=== PATIENT | female | born 1960 | race Caucasian/White ===

== ENCOUNTER 2016-11-14 15:42 | Emergency (ER) | payer MEDICARE, MEDICAID ==
[~2016-11-14] VITALS: Ht 172.7 cm; Wt 99.8 kg
[~2016-11-14 15:42] MED LIST: CARV12.53 PO; HYDR25TA4 PO; IBUP-30 PO; NITR-65 PO; NITR100C10 PO; OMEP40CA36 PO; PROM25TA14 PO
--- OUTSIDE RECORDS SUMMARY | 2016-11-14 15:54 | XMS REPORT | Continuity of Care Document ---
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 sleeping because of the pain. The Frederick that I gave her yesterday was not quite strong enough to help her be able to sleep, and she says she just has not slept very much since the injury and was wondering if she could get small prescription of Percocet just to use at bedtime. Pain Assessment Cognitive Status: Independent, decisions consistent/reasonable Intensity: 8 Location: Shoulder Laterality: Left Review of Systems Left shoulder pain, insomnia secondary to pain. Allergies Atarax Compazine Bactrim Ceclor Penicillins Current Medications Anaprox-DS 550 mg oral tablet (naproxen), 550 mg, 2 times a day, 15 Day(s) Coreg 12.5 mg oral tablet (carvedilol), 12.5 mg, 2 times a day doxycycline 20 mg oral tablet (doxycycline), 20 mg, Every 12 hours hydrochlorothiazide 25 mg oral tablet (hydrochlorothiazide), 25 mg, Every 24 hours Klonopin 1 mg oral tablet (clonazepam), take one tab 30-60 minutes before MRI Lac-Hydrin 12% topical cream (ammonium lactate topical), 1 Apply, 2 times a day Frederick 10 mg-325 mg oral tablet (acetaminophen-hydrocodone), 1 Tab, PRN, Every 6 hours Problems and Past Medical History Active Anxiety Asthma DVT (deep venous thrombosis) HIDRADENITIS: Onset on 10/10/2013. Hypertension Incontinence of Urine Osteoarthritis Panic Attacks Family History Cardiovascular Past Medical History Heart Attack Medical History: Father Heart Disease Medical History: Father High Blood Pressure Medical History: Mother Family Status Father: Mother: Paternal Grandfather: Paternal Grandmother: Maternal Grandfather: Maternal Grandmother: Brother 1: Living Brother 2: Living Genitourinary Past Medical Hx Incontinence Medical History: Mother Musculoskeletal Past Medical Hx Back Injury Medical History: Father Oncologic Past Medical History Lung/Bronchus Cancer Medical History: Father Skin Cancer Medical History: Father Psychiatric Past Medical History Anxiety Medical History: Father Panic Attack Medical History: Father Respiratory Past Medical History Asthma Medical History: Sibling, Children Additional Family Status: 2 sons living and one daughter . Family Status Reviewed With Patient: Review complete Procedure History ANKLE SURGERY at 04/1987. Hysterectomy - abdominal * at 04/1995. Exploratory laparotomy * at 04/1998. Cholecystectomy; at 04/1998. bladder tumor benign appy rt knee arthroscopy x2 Social History Current Tobacco Usage: Current Recreational Drug Use: Denies Tobacco Type: Cigarettes Cigarette Use Packs/Day: 1 Physical Examination TEMP BP Pulse RR MAP O2 Sat 37.0 160/90 94 18 113.33 98 Blood Pressure Location: Left arm Oxygen Therapy: Room air Weight Height BMI BSA 113.6 kg (250.45 lbs) 167.5 cm 40.5 kg/m2 2.299 m2 Scale: Standing digital General: Well developed, well-nourished adult female in no acute distress. Alert and oriented. Impression 1. Supraspinatus tendon tear (840.6) Plan Medication changes this visit: New Percocet 7.5/325 oral tablet, 1 Tab, PRN, QPM, Quantity: 5, Refills: 0 Orders this visit: Referral - Request I gave her a prescription of Percocet #5 just to use at bedtime. Explained that she needed to be careful about the amount of Tylenol she was getting, and I did not want her to mix and go back and forth between the Frederick and the Percocet, and not to use the Percocet during the day. We made her an orthopedic appointment for tomorrow. TR: [id number] VIVIAN#: [id number] [Electronically Signed on 02.27.2014 10:06 AM]
Ashleigh Adhikari MD
</br> 02/22/2014 [Electronically Signed on 02.27.2014 10:06 AM] Ashleigh Adhikari MD [facility] Amb Nurs Intake Event Amb Nurs Intake Event 2012 [facility] SMEG-Healthcare Goals 1 SMEG-Healthcare Goals 1 Yes No Yes Yes No No No Yes Yes No 05/19/2013 [facility] Office/Clinic Notes Office/Clinic Notes [facility] [address] [place] [phone] PATIENT: ROSA ISELA OSBORNE MR #: [id number] : 1960 DATE SEEN: 05/19/2013 Chief Complaint Rosa Isela is here today for a cut on the bottom of her right foot. Additional Information: [facility] [address] [place] _ History of Present Illness Mrs. Osborne presents to clinic today due to right plantar foot wound. She initially injured right foot after wood chip was lodge in sole of foot back on in [place]. Patient had wood chip removed at a local ER. She then presented to [facility] urgent care on 04/27 and XR was obtained, which did not show any foriegn body or osteomyelitis. She was given pain medication and started on doxycycline. She was referred to Dr. Braden Myles podiatry, who provided caroleeyle wound debrider and CAM walker and arranged for wound care at [facility]. Patient did not keep appointment at [facility] and presents today to clinic due to on going plantar foot pain. Patient not wearing CAM walker at time of clinic appointment. She denies fever, chills, drainage from wound, increased swelling. Patient states in extreme pain. _ Pain Assessment Cognitive Status: Independent, decisions consistent/reasonable Intensity: 7 Location: Foot Review of Systems denies fever, chills, drainage from wound, increased swelling._ Allergies Atarax Compazine Bactrim Penicillins Current Medications Abilify 2 mg oral tablet (aripiprazole), 6 mg, Daily Coreg 12.5 mg oral tablet (carvedilol), 12.5 mg, 2 times a day hydrochlorothiazide 25 mg oral tablet (hydrochlorothiazide), 25 mg, Every 24 hours Phenergan 25 mg oral tablet (promethazine), 25 mg, Every 8 hours Santyl 250 units/g topical ointment (collagenase topical), 1 Apply, Every 24 hours Problems and Past Medical History Active Anxiety Asthma Hypertension Incontinence of Urine Osteoarthritis Panic Attacks Family History Cardiovascular Past Medical History Heart Attack Medical History: Father Heart Disease Medical History: Father High Blood Pressure Medical History: Mother Family Status Father: Mother: Paternal Grandfather: Paternal Grandmother: Maternal Grandfather: Maternal Grandmother: Brother 1: Living Brother 2: Living Genitourinary Past Medical Hx Incontinence Medical History: Mother Musculoskeletal Past Medical Hx Back Injury Medical History: Father Oncologic Past Medical History Lung/Bronchus Cancer Medical History: Father Skin Cancer Medical History: Father Psychiatric Past Medical History Anxiety Medical History: Father Panic Attack Medical History: Father Respiratory Past Medical History Asthma Medical History: Sibling, Children Additional Family Status: 2 sons living and one daughter . Family Status Reviewed With Patient: Review complete Procedure History ANKLE SURGERY Hysterectomy - abdominal * at 04/1995. Exploratory laparotomy * at 04/1998. Cholecystectomy; at 04/1998. Social History Alcohol Use: Current Alcohol Type: Liquor Alcohol Frequency: Other: occassionally Caffeine Use: Denies Caffeine Type: Coffee, Soda Caffeine Frequency: Daily Caffeine Use: Current Caffeine Type: Tea Caffeine Frequency: Other: occassionally Current Tobacco Usage: Current Recreational Drug Use: Denies Smoking Status: Smokes daily Physical Examination TEMP BP Pulse RR MAP O2 Sat 36.9 160/80 68 16 106.67 98 Blood Pressure Location: Left arm Oxygen Therapy: Room air Weight Height BMI BSA 167.5 cm General: Afebrile, Resp: CTAB, no wheezing Cardiac: RRR, no murmur Musculoskeletal: R foot: R plantar foot ulceration at distal ball of foot measuring approximately 2 cm in length, deep unknown, no drainage, minimal swelling, no erythema. Patient refused for further exam to probe wound to evaluate depth and underlying tissue due to extreme pain. _ Impression/Plan 1. Open Wound of Foot except Toe(s) Alone (892.0)/Foot pain, right (729.5): Provided percocet 7.5/325 mg po Q 4hrs prn pain, 24 tabs. Patient states rescheduled wound care appointment for next week at [facility]. Will schedule follow-up with Dr. Myles in 2 weeks. Provided script for doxycycline 100 mg po BID and Santyl wound debridement cream. 3. Elevated Blood pressure: Patient states compliant with coreg and HCTZ. Probably secondary to pain. Will need to be monitored in subsequent visits. _ _ Medication changes this visit: New Santyl 250 units/g topical ointment, 1 Apply, Q24H, Quantity: 30, Refills: 0 acetaminophen-hydrocodone 325 mg-7.5 mg oral tablet, 1 Tab, PRN, Q4H, Quantity: 24, Refills: 0 doxycycline hyclate 100 mg oral tablet, 100 mg, BID, Quantity: 14, Refills: 0 _ Ricardo Houston MD [Electronically Signed on 05.31.2013 04:02 PM]
Ricardo Houston MD
</br> 05/19/2013 [Electronically Signed on 05.31.2013 04:02 PM] Ricardo Houston MD [facility] Ambulatory Depart Summary Ambulatory Depart Summary [facility] [address] [place] [address], [place] [id number] PERSON INFORMATION Name ROSA ISELA OSBORNE Age 52 Years 1960 Sex Female Language Martiniquais PCP Bonnie Mina DO Marital Status Legally Time Zone Visit Id Visit Reason OPEN WOUND ON BOTTOM OF FOOT Specialty Enc Type [facility] Med Service SPO-Specialist Phys Office Referred by [facility] Discharge Process Discharge Tracking Id Checkout Checkin Acuity Dispo Type Arrival 04/28/2013 9:44 AM Reg Status LOS Address: [address] [place] [id number] PHYS DOC NOTES PROVIDER INFORMATION VITALS INFORMATION Height: 5ft 5.9in Weight: 238.76 lbs (BMI: 38.6) Temp: 98.1 F Heart Rate: 72 Respiratory: 18 O2 Sat: 98 BP: 132/82 LOCATION INFORMATION Arrival Nurse Unit Room Bed 04/28/2013 9:54 AM ORDERS INFORMATION MEDICAL INFORMATION Allergy Info: Penicillins; Bactrim; Compazine; Atarax HOME MEDICATIONS Abilify 2 mg oral tablet 6 mg, Oral, Daily Coreg 12.5 mg oral tablet 12.5 mg, Oral, 2 times a day Doxy-Caps 100 mg oral tablet 1 Cap, Oral, Every 12 hours hydrochlorothiazide 25 mg oral tablet 25 mg, Oral, Every 24 hours Frederick 10 mg-325 mg oral tablet 1 Tab, Oral, Every 6 hours, as needed, for pain oxycodone 10 mg oral tablet 10 mg, Oral, Every 8 hours, Printed Phenergan 25 mg oral tablet 25 mg, Oral, Every 8 hours, Printed Santyl 250 units/g topical ointment 1 Apply, Topical, Every 24 hours, Printed DISCHARGE INFORMATION Discharge Disposition: Discharge Location: PATIENT EDUCATION INFORMATION Instructions: Wound Care; Pain Management Follow up: DIAGNOSIS Open wound of right foot; Foot Pain 04/28/2013 [facility] Office/Clinic Notes Office/Clinic Notes [facility] [place] [id number] [address] [address] PATIENT: ROSA ISELA OSBORNE MR #: [id number] PCP: Ashleigh Adhikari MD REFERRING PHYSICIAN: Ten Jones MD : 1960 DATE SEEN: 05/04/2014 Chief Complaint Rosa Isela is here today following up on her left shoulder pain. She is still having a lot of pain. History of Present Illness Rosa Isela returns today for evaluation of her left shoulder. She is 2 weeks out of the left shoulder arthroscopy and debridement. She is doing okay. She says she is taking about 4-5 pain pills a day. She says the pain is getting better. Pain Assessment Cognitive Status: Independent, decisions consistent/reasonable Intensity: 6 Location: Shoulder Review of Systems Musculoskeletal: Muscle or joint pain Pertinent negative for the following system(s): Constitutional, HEENT, Respiratory, Cardiovascular, GI, , ADVERTISING INTERN, Integumentary, Neurological, Hematologic, Endocrine, Psychiatric Allergies Atarax Compazine Tylenol Bactrim Ceclor Penicillins Current Medications aspirin, 325 mg, Every 24 hours Coreg 12.5 mg oral tablet (carvedilol), 12.5 mg, 2 times a day Flonase (fluticasone nasal), 1 [place] hydrochlorothiazide 25 mg oral tablet (hydrochlorothiazide), 25 mg, Every 24 hours Klonopin 1 mg oral tablet (clonazepam), take one tab night before surgery oxycodone, 10 mg, PRN, Every 4 hours Prilosec (omeprazole), 20 mg, PRN, Every 24 hours ProAir HFA 90 mcg/inh inhalation aerosol with adapter (albuterol), 2 Puff(s), 4 times a day Problems and Past Medical History Active Acid reflux Anxiety Asthma DVT (deep venous thrombosis) DVT, lower extremity, recurrent HIDRADENITIS: Onset on 10/10/2013. Hx MRSA infection Hypertension Incontinence of Urine Osteoarthritis Panic Attacks Family History Cardiovascular Past Medical History Heart Attack Medical History: Father Heart Disease Medical History: Father High Blood Pressure Medical History: Mother Family Status Father: Mother: Paternal Grandfather: Paternal Grandmother: Maternal Grandfather: Maternal Grandmother: Brother 1: Living Brother 2: Living Genitourinary Past Medical Hx Incontinence Medical History: Mother Musculoskeletal Past Medical Hx Back Injury Medical History: Father Oncologic Past Medical History Lung/Bronchus Cancer Medical History: Father Skin Cancer Medical History: Father Psychiatric Past Medical History Anxiety Medical History: Father Panic Attack Medical History: Father Respiratory Past Medical History Asthma Medical History: Sibling, Children Additional Family Status: 2 sons living and one daughter . Family Status Reviewed With Patient: Review complete Procedure History ANKLE SURGERY at 04/1987. Hysterectomy - abdominal * at 04/1995. Exploratory laparotomy * at 04/1998. Cholecystectomy; at 04/1998. bladder tumor benign appy rt knee arthroscopy x2 LEFT SHOULDER ARTHROSCOPY WITH EXTENSIVE DEBRIDEMENT AND BICEPS TENOTOMY. at . Social History Alcohol Use: Current Alcohol Type: Liquor Alcohol Frequency: Other: occasionally Caffeine Use: Current Caffeine Type: Coffee, Soda Caffeine Frequency: Daily Caffeine Use: Current Caffeine Type: Tea Caffeine Frequency: Other: occasionally Current Tobacco Usage: Current Recreational Drug Use: Denies Smoking Status: Smokes daily Physical Examination TEMP BP Pulse RR MAP O2 Sat 130/92 75 22 104.67 97 Blood Pressure Location: Left arm Oxygen Therapy: Room air Weight Height BMI BSA 167.5 cm On physical examination her stitches look fine. There is some moderate edema. She is neurovascularly intact. Range of motion is somewhat limited secondary to pain. Impression 1. Shoulder pain (719.41) Plan Medication changes this visit: New oxycodone 10 mg oral tablet, 10 mg, PRN, Q4H, Quantity: 60, Refills: 0 Stopped oxycodone, 10 mg, PRN, Q4H, Refills: 0 Orders this visit: Physical Therapy -Request Patient needs to get involved in some physical therapy. We will facilitate this for her. I refilled her pain medications. She will followup with me in 4 weeks for repeat evaluation. cc: Ashleigh Adhikari MD TR: [id number] VIVIAN#: [id number] [Electronically Signed on 05.11.2014 10:40 AM]
Ten Jones MD
</br> 05/04/2014 [Electronically Signed on 05.11.2014 10:40 AM] Ten Jones MD [facility] Surgery Documentation Surgery Documentation DATE OF OPERATION: 04/20/14 PREOPERATIVE DIAGNOSIS: 1. Left shoulder pain. 2. Labral tear. POSTOPERATIVE DIAGNOSIS: 1. Left shoulder pain. 2. Labral tear. OPERATIVE PROCEDURE: Left shoulder arthroscopy with extensive debridement including biceps tenotomy. SURGEON: Ten Jones MD ESTIMATED BLOOD LOSS: 5cc DESCRIPTION OF OPERATIVE PROCEDURE: Risks and benefits of the surgery were discussed with the patient. Informed consent was obtained. The correct extremity was confirmed and marked prior to going to the operating room. The patient was taken to the operating room and placed supine on the operating room table. General anesthesia was administered. Preop antibiotics were given. All bony prominence and peripheral nerves were well-padded. She was transitioned to the beach chair position. The head was secured on the head start teacher. The left lower extremity was then prepped and draped in a normal sterile fashion. A timeout was performed prior to incision. The left shoulder was injected with 60 mL of Normal Saline. A stab incision was made in the posteriorly. A 30 degree arthroscope was inserted in the glenohumeral joint and a diagnostic arthroscopy was initiated. The anterior anatomy was identified and a working portal was created using outside in technique. A cannula was placed. The biceps tendon was probed. The labrum was evaluated. There is a type 2 labral tear with instability of the biceps anchor. Decision for tenotomy was reached. The labrum was debrided. The biceps was tenotomized and the stump was smoothed out with a shaver back to the edge of the labrum. We examined the rotator cuff. The rotator cuff was pristine. No tears were identified. The patient had no cartilaginous issues, no loose bodies. The posterior labrum looked normal. We then went up into subacromial space. The scope was redirected into this area. The patient had normal appearing bursa. This was lightly debrided. No former acromioplasty was performed as there was no irritation or inflammation on the bursal side of the rotator cuff. No bursal side of the rotator cuff tears were seen. At this point, arthroscopic instruments were removed. The shoulder was drained of fluid. The portals were closed with 4-0p Nylon. The patient was then awakened and taken to the recovery in stable condition. Sponge and needle counts were correct times two. There were no complications. PLAN: The patient will placed on Lovenox. She is to take her first dose tonight. She is to wear thigh-hi VIVIAN hose and continue her Lovenox for a total of seven days. She is to wear a sling for comfort. DICTATED BY: Ten Jones cc: TR: liana DR: DE: JOB#: [id number] [Electronically Signed on 05.13.2014 02:29 PM]
Ten Jones MD
</br> 04/20/2014 [Electronically Signed on 05.13.2014 02:29 PM] Ten Jones MD [facility] PreOp Record [facility] PreOp Record [facility] Preop Nursing Record Summary Primary Physician: Ten Jones MD Finalized Date/Time: 04/20/14 09:43:13 Pt. Name: ROSA ISELA OSBORNE /Sex: 1960 Female Med Rec #: [id number] Physician: Financial #: [id number] Pt. Type: S Room/Bed: Formerly named [facility] Admit/Disch: 04/20/14 07:59:00 - Institution: [facility] Preop Case Times Entry 1 Patient in preop 04/20/14 08:10:00 Initial Assessment 04/20/14 08:10:00 by Nurse Anesthesia 04/20/14 08:47:00 Patient Ready for OR 04/20/14 09:34:00 Evaluation Requested Patient out of Preop 04/20/14 09:34:00 Last Modified By: Kim Cleary RN 04/20/14 09:34:59 Finalized By: Kim Cleary RN Document Signatures Signed By: Kim Cleary RN 04/20/14 09:43 04/20/2014 [facility] Ambulatory Depart Summary Ambulatory Depart Summary [facility] [address] [address] [phone] PERSON INFORMATION Name ROSA ISELA OSBORNE Age 53 Years 1960 12:00 AM Sex Female Language Martiniquais PCP Ashleigh Adhikari MD Marital Status Legally Time Zone [facility] [id number] Visit Id Visit Reason SHOULDER PAIN/MEDICATION Specialty Enc Type [facility] Med Service PHYSOFF-Physician Office Referred by [facility] Discharge Process Discharge Tracking Id Checkout Checkin Acuity Dispo Type Arrival 03/19/2014 9:32 AM Reg Status LOS Address: [address] [place] [id number] PHYS DOC NOTES PROVIDER INFORMATION VITALS INFORMATION Height: 5ft 5.9in Weight: 243.39 lbs (BMI: 39.3) Temp: 98.1 F Heart Rate: 87 Respiratory: 18 O2 Sat: 97 BP: 148/94 LOCATION INFORMATION Arrival Nurse Unit Room Bed 03/19/2014 9:38 AM ORDERS INFORMATION MEDICAL INFORMATION Allergy Info: Penicillins; Ceclor; Bactrim; Compazine; Atarax HOME MEDICATIONS Coreg 12.5 mg oral tablet 12.5 mg, Oral, 2 times a day, 6 Refills hydrochlorothiazide 25 mg oral tablet 25 mg, Oral, Every 24 hours, 6 Refills Klonopin 1 mg oral tablet See Instructions, take one tab night before surgery Frederick 10 mg-325 mg oral tablet 1 Tab, Oral, Every 6 hours, as needed, for pain, Printed ProAir HFA 90 mcg/inh inhalation aerosol with adapter 2 Puff(s), Inhalation, 4 times a day, 3 Refills, [place]: [place] DISCHARGE INFORMATION Discharge Disposition: Discharge Location: PATIENT EDUCATION INFORMATION Instructions: ASTHMA, Acute (Adult) Follow up: DIAGNOSIS Asthma 03/19/2014 [facility] Office/Clinic Notes Office/Clinic Notes [facility] [address] [place] [address] PATIENT: ROSA ISELA OSBORNE MR #: [id number] PCP: Ashleigh Adhikari MD REFERRING PHYSICIAN: Ashleigh Adhikari MD : 1960 DATE SEEN: 03/16/2014 Chief Complaint Rosa Isela is here today for pre op evaluation. History of Present Illness Ms. Osborne returns today for evaluation of her shoulder. We had planned shoulder arthroscopy and potential rotator cuff repair for her but it was canceled because of the need for hematology workup. Apparently the patient has had multiple DVT (deep vein thrombosis) and is currently not on any sort of anticoagulant therapy. She saw a electric truck operator for this and the electric truck operator made some recommendations. She is here today to discuss these with me. Patient states to me in no uncertain terms that she is ready to compliant with her anticoagulation therapy postoperatively. The electric truck operator outlined a very specific outline of 40mg of subcutaneous Lovanox for 2 weeks postop. Pain Assessment Cognitive Status: Independent, decisions consistent/reasonable Intensity: 6 Location: Other: left shoulder, back Review of Systems Musculoskeletal: Muscle or joint pain Pertinent negative for the following system(s): Constitutional, HEENT, Respiratory, Cardiovascular, GI, , ADVERTISING INTERN, Integumentary, Neurological, Hematologic, Endocrine, Psychiatric Allergies Atarax Compazine Bactrim Ceclor Penicillins Current Medications Coreg 12.5 mg oral tablet (carvedilol), 12.5 mg, 2 times a day hydrochlorothiazide 25 mg oral tablet (hydrochlorothiazide), 25 mg, Every 24 hours Klonopin 1 mg oral tablet (clonazepam), take one tab night before surgery Frederick 10 mg-325 mg oral tablet (acetaminophen-hydrocodone), 1 Tab, PRN, Every 6 hours Problems and Past Medical History Active Anxiety Asthma DVT (deep venous thrombosis) DVT, lower extremity, recurrent HIDRADENITIS: Onset on 10/10/2013. Hypertension Incontinence of Urine Osteoarthritis Panic Attacks Family History Cardiovascular Past Medical History Heart Attack Medical History: Father Heart Disease Medical History: Father High Blood Pressure Medical History: Mother Family Status Father: Mother: Paternal Grandfather: Paternal Grandmother: Maternal Grandfather: Maternal Grandmother: Brother 1: Living Brother 2: Living Genitourinary Past Medical Hx Incontinence Medical History: Mother Musculoskeletal Past Medical Hx Back Injury Medical History: Father Oncologic Past Medical History Lung/Bronchus Cancer Medical History: Father Skin Cancer Medical History: Father Psychiatric Past Medical History Anxiety Medical History: Father Panic Attack Medical History: Father Respiratory Past Medical History Asthma Medical History: Sibling, Children Additional Family Status: 2 sons living and one daughter . Family Status Reviewed With Patient: Review complete Procedure History ANKLE SURGERY at 04/1987. Hysterectomy - abdominal * at 04/1995. Exploratory laparotomy * at 04/1998. Cholecystectomy; at 04/1998. bladder tumor benign appy rt knee arthroscopy x2 Social History Alcohol Use: Current Alcohol Type: Liquor Alcohol Frequency: Other: occasionally Caffeine Use: Current Caffeine Type: Coffee, Soda Caffeine Frequency: Daily Caffeine Use: Current Caffeine Type: Tea Caffeine Frequency: Other: occasionally Current Tobacco Usage: Current Recreational Drug Use: Denies Smoking Status: Smokes daily Physical Examination TEMP BP Pulse RR MAP O2 Sat 37.0 102/68 85 20 79.33 94 Blood Pressure Location: Left arm Oxygen Therapy: Room air Weight Height BMI BSA 167.5 cm The patient's physical exam is really unchanged. Impression 1. Rotator cuff injury (959.2) Plan We will plan on doing left shoulder arthroscopy with possible rotator cuff repair. Patient has expressed commitment to comply with DVT prophylaxis measures. I counseled her on the importance of this and she expressed understanding. We will set up the surgery at a time that it is convenient. cc: Ashleigh Adhikari MD TR: [id number] VIVIAN#: [id number] [Electronically Signed on 03.29.2014 10:44 AM]
Ten Jones MD
</br> 03/16/2014 [Electronically Signed on 03.29.2014 10:44 AM] Ten Jones MD [facility] Office/Clinic Notes Office/Clinic Notes No prior auth is required for outpatient surgical procedures with Medicaid that are covered by Medicare and deemed medically necessary by the physician notes and the insurance. KW. Reference number [id number]. KW. 03/19/2014 [facility] Ambulatory Depart Summary Ambulatory Depart Summary [facility] [address] [place] [address] [place] [address] PERSON INFORMATION Name ROSA ISELA OSBORNE Age 53 Years 1960 Sex Female Language Martiniquais PCP Bonnie Mina DO Marital Status Legally Time Zone Visit Id Visit Reason 1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
[2016-11-14] MEDS ORDERED: CYCLOBENZAPRINE 10 MG (FLEXERIL) TAB PO STA (16:54)
[2016-11-14 17:10] LABS: BILIRUBIN,URINE NEGATIVE (NEGATIVE); KETONES,URINE NEGATIVE (NEGATIVE); LEUKOCYTE ESTERASE ,URINE NEGATIVE (NEGATIVE); NITRITE,URINE NEGATIVE (NEGATIVE); PH,URINE 6 (5-9); PROTEIN,URINE NEGATIVE (NEGATIVE); UROBILINOGEN,URINE NORMAL (NORMAL)
[2016-11-14] MEDS ORDERED: oxyCODONE/APAP 5/325MG (PERCOCET 5) TABLET PO STA (17:11)
--- NOTE | 2016-11-14 17:59 | Diagnostic Imaging Report ---
INDICATION: Low back pain, fall. COMPARISON: None. EXAMINATION: Three3 views of the lumbar spine were obtained. FINDINGS: Normal alignment. There is no subluxation or fracture. No significant degeneration. IMPRESSION: Negative lumbar spine. Dictated by: Dictated on workstation # [id number]
[2016-11-14] MEDS ORDERED: CYCL10TA9 PO (18:07)
--- NOTE | 2016-11-14 18:07 | ED Lower Extremity ---
General Chief Complaint: Trauma-Non Activation Stated Complaint: FALL/BACK PAIN/BILAT LEG PAIN Nursing Triage Note: Pt claims she fell forward while going up a flight of stairs. c/o low back pain. Hx of chronic shoulder problems (torn labrium) bilateral. Pt has appointment to see Aurelio next week. Nursing Sepsis Screen: No Definite Risk History of Present Illness Time seen by provider: 16:40 Initial Comments Patient reports yesterday she was going up 1 step and tripped. She started to fall forward but caught herself. She denies any head injury or loss of consciousness. He has long-standing history of degenerative disc disease in the neck And chronic use of opioids for bilateral shoulder pain. He is seeing Dr. Carey next week for her shoulders. Her K Tracs, she has filled hydrocodone/ apap 5/325 mg No. 30 on 11/09/16, 10/31/16, and 10/21/16. Location Injury Occurred: home Onset: yesterday Pain/Injury Location: bilateral leg Method of Injury: fell Modifying Factors: Improves With Rest Allergies and Home Medications Allergies Coded Allergies: Penicillins (Verified Allergy, Unknown, 06/20/16) cefaclor (Verified Allergy, Unknown, 06/20/16) hydroxyzine (Verified Allergy, Unknown, 06/20/16) prochlorperazine (Verified Allergy, Unknown, 06/20/16) sulfamethoxazole (Verified Allergy, Unknown, 06/20/16) trimethoprim (Verified Allergy, Unknown, 06/20/16) Home Medications Carvedilol 12.5 Mg Tablet 12.5 MG PO BID (Reported) Cyclobenzaprine HCl 10 Mg Tablet #12 10 MG PO Q8H Prescribed by: MAXIMILIANO BARKER on 11/14/16 1807 Hydrochlorothiazide 25 Mg Tablet 25 MG PO DAILY (Reported) Ibuprofen 200 Mg Tablet 800 MG PO DAILY (Reported) Omeprazole 40 Mg Capsule.dr 40 MG PO DAILY (Reported) Constitutional: no symptoms reported see HPI EENTM: no symptoms reported see HPI Respiratory: no symptoms reported see HPI Cardiovascular: no symptoms reported see HPI Gastrointestinal: no symptoms reported see HPI Genitourinary: see HPINo discharge, No dysuria, frequencyNo hematuria, No nocturia, No pain Musculoskeletal: see HPI back pain joint pain (bilateral shoulders) Skin: no symptoms reported see HPI Psychiatric/Neurological: No Symptoms Reported See HPI All Other Systems Reviewed Negative Unless Noted: Yes Past Zlgfiop-Ceqkpa-Mawagg Hx Patient Social History Alcohol Use: Denies Use Recreational Drug Use: No Type Used: Cigarettes Recent Foreign Travel: No Contact w/Someone Who Travel: No Recent Infectious Disease Expo: No Recent Hopitalizations: No Immunizations Up To Date Tetanus Booster (TDap): Less than 5yrs Date of Pneumonia Vaccine: Oct 04, 2010 Seasonal Allergies Seasonal Allergies: Yes Surgeries HX Surgeries: Yes Surgeries: Hysterectomy, Orthopedic Respiratory Hx Respiratory Disorders: No Cardiovascular Hx Cardiac Disorders: Yes Cardiac Disorders: Deep Vein Thrombosis, Hypertension Neurological Hx Neurological Disorders: No 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 System 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 Disorders: No Genitourinary Hx Genitourinary Disorders: No Gastrointestinal Hx Gastrointestinal Disorders: No Gastrointestinal Disorders: Gastroesophageal Reflux, Liver Disease/Jaundice Musculoskeletal Hx Musculoskeletal Disorders: No Endocrine Hx Endocrine Disorders: No HEENT HX ENT Disorders: No Cancer Hx Cancer: No Cancer: Bladder Psychosocial Hx Psychiatric Problems: No Behavioral Health Disorders: Anxiety, Depression Integumentary HX Skin/Integumentary Disorder: No Blood Transfusions Hx Blood Disorders: No Adverse Reaction to a Blood Tr: No Reviewed Nursing Assessment Reviewed/Agree w Nursing PMH: Yes Family Medical History Significant Family History: No Pertinent Family Hx Physical Exam Vital Signs Vital Sign - Last 12Hours 11/14/16 16:00 Temp 97.5 Pulse 70 Resp 18 B/P 147/88 Pulse Ox 98 Capillary Refill : Less Than 3 Seconds General Appearance: WD/WN no apparent distress HEENT: PERRL/EOMI normal ENT inspection Neck: non-tender full range of motion supple normal inspection Cardiovascular: normal peripheral pulses regular rate, rhythm no edema no murmur Respiratory: chest non-tender lungs clear Gastrointestinal: normal bowel sounds non tender soft Back: normal inspection no CVA tenderness Hips: bilateral hip non-tender, bilateral hip normal inspection, bilateral hip normal range of motion Legs: bilateral leg non-tender, bilateral leg normal inspection, bilateral leg normal range of motion Neurologic/Tendon: normal sensation normal motor functions normal tendon functions responds to pain Neurologic/Psychiatric: no motor/sensory deficits alert normal mood/affect oriented x 3 Skin: normal color warm/dry Comments Pain lower lumbar spine, with right paraspinal muscle tenderness. Limitation of motion lumbar spine secondary to pain. Neurovascular status intact bilateral lower extremities. Pain reproduced in the low back with L4 muscle testing. Power V/V L4-S1. Progress/Results/Core Measures Results/Orders Lab Results Laboratory Tests Test 11/14/16 17:00 Range/Units Urine Bacteria NEGATIVE /HPF Urine Bilirubin NEGATIVE NEGATIVE Urine Casts NONE /LPF Urine Clarity SLIGHTLY CLOUDY Urine Color YELLOW Urine Crystals NONE /LPF Urine Culture Indicated NO Urine Glucose (UA) NEGATIVE NEGATIVE Urine Ketones NEGATIVE NEGATIVE Urine Leukocyte Esterase NEGATIVE NEGATIVE Urine Mucus NEGATIVE /LPF Urine Nitrite NEGATIVE NEGATIVE Urine Protein NEGATIVE NEGATIVE Urine RBC NONE /HPF Urine RBC (Auto) NEGATIVE NEGATIVE Urine Specific [place] 1.010 L 1.016-1.022 Urine Squamous Epithelial Cells 2-5 /HPF Urine Urobilinogen NORMAL NORMAL MG/DL Urine WBC NONE /HPF Urine pH 6 5-9 My Orders Orders-MAXIMILIANO BARKER Lumbar Spine - 2-3 Views (11/14/16 16:54) Cyclobenzaprine Tablet (Flexeril Tablet) (11/14/16 16:54) Tramadol Tablet (Ultram Tablet) (11/14/16 16:54) Ua Culture If Indicated (11/14/16 16:54) Oxycodone/Apap 5/325mg Tablet (Percocet (11/14/16 17:11) Vital Signs/I&O Vital Sign - Last 12Hours 11/14/16 11/14/16 11/14/16 11/14/16 16:00 16:23 16:50 17:37 Temp 97.5 97.5 97.5 97.5 Pulse 70 70 70 Resp 18 18 18 B/P 147/88 147/88 147/88 Pulse Ox 98 98 98 11/14/16 18:15 Temp 97.8 Pulse 72 Resp 16 Pulse Ox 98 Blood Pressure Mean: 107 Progress Note : Time: 16:50 Progress Note Obtain x-rays of the lumbar spine and a UA. Oxycodone for pain and Flexeril 10 mg by mouth for muscle spasms. 1730 reviewed x-ray with patient, UA negative. 3 show no acute findings. She reports slight improvement in her symptoms since taking the medications. Verbalizes understanding for discharge instructions. Diagnostic Imaging Diagonstic Imaging: Xray Plain Films/CT/US/NM/MRI: other (lumbar spine) Comments NAME: ROSA ISELA CHING MED REC#: [id number] PT STATUS: REG ER : 1960 PHYSICIAN: MAXIMILIANO BARKER ADMIT DATE: 11/14/16/ER Signed Date of Exam: 11/14/16 LUMBAR SPINE - 2-3 VIEWS INDICATION: Low back pain, fall. COMPARISON: None. EXAMINATION: Three3 views of the lumbar spine were obtained. FINDINGS: Normal alignment. There is no subluxation or fracture. No significant degeneration. IMPRESSION: Negative lumbar spine. Dictated by: Dictated on workstation # [id number] Dict: 11/14/161756 Trans: 11/14/161801 [facility] [id number] Interpreted by: JALEEL ALATORRE Electronically signed by:JALEEL ALATORRE 11/14/163 Reviewed: Reviewed by Me, Reviewed/Discussed Departure Impression Impression: Primary Impression: Lumbar spine strain Qualified Code: S39.012A - Strain of muscle, fascia and tendon of lower back, initial encounter Disposition: 01 HOME, SELF-CARE Condition: Stable Departure-Patient Inst. Decision time for Depature: 17:50 Referrals: NO,LOCAL PHYSICIAN (PCP/Family) Primary Care Physician Patient Instructions: Low Back Pain (DC) Add. Discharge Instructions: All discharge instructions reviewed with patient and/or family. Voiced understanding. Gentle range of motion for lumbar spine. Keep appointment with orthopedics for shoulders next week. Return to emergency department for increased pain or change in symptoms. Scripts Cyclobenzaprine HCl 10 Mg [id number] Mg PO Q8H Spasms #12 TAB Ref 0 Prov:MAXIMILIANO BARKER 11/14/16 MAXIMILIANO BARKER Nov 14, 2016 18:07
[2016-11-14 18:15] VITALS: BP 136/70
== END 2016-11-14 18:15 | disposition home or self-care (01) ==
LOC: EDUNIT# 15:42 → ER 15:44
DX: S39.012A Strain of muscle, fascia and tendon of lower back, initial encounter (principal); M50.30 Other cervical disc degeneration, unspecified cervical region; I10 Essential (primary) hypertension; Z79.899 Other long term (current) drug therapy; Z79.891 Long term (current) use of opiate analgesic; W10.9XXA Fall (on) (from) unspecified stairs and steps, initial encounter; Y99.8 Other external cause status
CPT/HCPCS: 72100; 81000; 99282

== ENCOUNTER → 2016-12-29 | Outpatient (CLI) | payer MEDICARE, MEDICAID ==
[~2016-12-29] MED LIST changes: +CYCL10TA9 PO; +OXYC-471 PO
--- NOTE | 2016-12-29 17:40 | Diagnostic Imaging Report ---
PROCEDURE: MRI left upper extremity without contrast. TECHNIQUE: Multiplanar, multisequence non contrast-enhanced MRI of the left upper extremity was accomplished. INDICATION: Shoulder pain. FINDINGS: There are no previous MRI examinations available for comparison. The left shoulder exam performed on 06/20/2016 failed to show any sign of an acute bony abnormality. On the T2 coronal fat-saturated series of this exam, there is irregularity and thinning of the bursal aspect of the mid portion of the rotator cuff. I do suspect that there is at least a partial tear of the rotator cuff in this region. The supraspinatus muscle itself is not retracted or bunched. There is also some fluid in the subacromial and subdeltoid bursa, and the presence of the fluid does suggest that there is an element of tendinitis present. There is also hypertrophy of the acromioclavicular joint, and this does result in narrowing of the outlet for the supraspinatus muscle. The biceps tendon and the subscapularis tendon are intact. The biceps anchor does have somewhat of an unusual appearance, and I am considering that there may be a SLAP 3 tear present. The labrum is also thinned and most likely torn on a degenerative basis. There is a trace amount of fluid within the shoulder joint. There is no abnormal signal arising from the osseous structures to suggest bone edema or a fracture. There is cystic degenerative disease of the greater tuberosity. IMPRESSION: 1. There is a partial bursal-sided tear of the mid portion of the rotator cuff. The supraspinatus muscle is not retracted or bunched. The fluid in the subacromial and subdeltoid bursa does suggest that there is also an element of tendinitis present. 2. There is narrowing of the outlet for the supraspinatus muscle due to acromioclavicular hypertrophy. 3. The appearance of the biceps anchor is suspicious for a SLAP 3 tear. The labrum is also torn on a degenerative basis. 4. There is no acute bony abnormality identified, but there is degenerative disease of the greater tuberosity. Dictated by: Dictated on workstation # [id number]
== END ==
LOC: RAD 15:24
PROVIDERS: ATTEND Orthopaedic Surgery
DX: M75.112 Incomplete rotator cuff tear or rupture of left shoulder, not specified as traumatic (principal); M19.012 Primary osteoarthritis, left shoulder
CPT/HCPCS: 73221

== ENCOUNTER 2017-01-09 13:07 | Emergency (ER) | payer MEDICARE, MEDICAID ==
[~2017-01-09] VITALS: Ht 167.6 cm; Wt 112.0 kg
[~2017-01-09 13:07] MED LIST changes: -OXYC-471 PO
[2017-01-09] MEDS ORDERED: OXYC-471 PO (13:29)
[2017-01-09] MEDS ORDERED: morphine INJ 10 MG/ML 1ML (SYR OR VIAL) IM STA (13:35)
--- NOTE | 2017-01-09 13:59 | ED General ---
General Chief Complaint: General Problems/Pain Stated Complaint: SOB Nursing Triage Note: TO ED PER EMS HAS SHOULDER SURG YESTERDAY IN [place] AT [facility] BY DR JOSEPH. RECEIVED OCYCODONE 5MG NOT HELPING. CMS OF L ARM GOOD. NO REDNESS OR SWELLING AROUND SURG SITE. Nursing Sepsis Screen: No Definite Risk Source of Information: Patient, Other (significant other) Exam Limitations: No Limitations History of Present Illness Time Seen by Provider: 13:15 Initial Comments 56-year-old female patient presents to the emergency department complaints of left shoulder pain not relieved with oxycodone 5 mg. Patient reports undergoing left shoulder surgery yesterday in [place] at the surgery center by Dr. Carey. States she was doing good until she tried to go without the medication for several hours. Now reports increasing pain. Patient states she is also supposed to be prescribed Phenergan, but was prescribed Zofran. States Zofran is not covered by her insurance. Patient is not wearing an arm brace or sling. Patient states she is supposed to be using her arm brace with the foam block, but states she did not feel like using it today. States she has been cleaning the toilet and tub of as well as unpacking today. States she's been using both upper extremities to do these tasks. Denies known injury to the left shoulder since having surgery yesterday. Timing/Duration: 1-3 Hours Modifying Factors: worse with Medication (no improvement with oxycodone 5 mg) Allergies and Home Medications Allergies Coded Allergies: Penicillins (Verified Allergy, Unknown, 06/20/16) cefaclor (Verified Allergy, Unknown, 06/20/16) hydroxyzine (Verified Allergy, Unknown, 06/20/16) prochlorperazine (Verified Allergy, Unknown, 06/20/16) sulfamethoxazole (Verified Allergy, Unknown, 06/20/16) trimethoprim (Verified Allergy, Unknown, 06/20/16) Home Medications Carvedilol 12.5 Mg Tablet, 12.5 MG PO BID, (Reported) Cyclobenzaprine HCl 10 Mg Tablet, 10 MG PO Q8H, #12 Ref 0 Prescribed by: MAXIMILIANO BARKER on 11/14/16 7126 Hydrochlorothiazide 25 Mg Tablet, 25 MG PO DAILY, (Reported) Ibuprofen 200 Mg Tablet, 800 MG PO DAILY, (Reported) Omeprazole 40 Mg Capsule.dr, 40 MG PO DAILY, (Reported) Oxycodone HCl/Acetaminophen 1 Each Tablet, 1 EACH PO, (Reported) Promethazine HCl 25 Mg Tablet, 25 MG PO Q6H PRN for NAUSEA/VOMITING, #6 Ref 0 Prescribed by: TINO MURPHY on 01/09/17 1410 Constitutional: No chills, No dizziness, No fever, No malaise, No weakness Respiratory: No cough, No short of breath, No wheezing Cardiovascular: No chest pain, No palpitations, No syncope Gastrointestinal: no symptoms reported Musculoskeletal: see HPI, No back pain, joint pain (left shoulder), joint swelling (left shoulder), No neck pain Skin: change in color (ecchymosis since having surgery to the left shoulder) Psychiatric/Neurological: Denies Headache, Denies Numbness, Denies Paresthesia , Denies Tingling, Denies Weakness All Other Systems Reviewed Negative Unless Noted: Yes (Negative excepted noted.) Past Nkqiwoc-Oqovyf-Omokpi Hx Patient Social History Alcohol Use: Occasionally Uses Recreational Drug Use: No Smoking Status: Current Everyday Smoker Type Used: Cigarettes Recent Foreign Travel: No Contact w/Someone Who Travel: No Recent Infectious Disease Expo: No Recent Hopitalizations: No Immunizations Up To Date Tetanus Booster (TDap): Less than 5yrs Date of Pneumonia Vaccine: Oct 04, 2010 Seasonal Allergies Seasonal Allergies: Yes Surgeries HX Surgeries: Yes Surgeries: Hysterectomy, Orthopedic Respiratory Hx Respiratory Disorders: Yes Respiratory Disorders: Asthma Cardiovascular Hx Cardiac Disorders: Yes Cardiac Disorders: Deep Vein Thrombosis, Hypertension Neurological Hx Neurological Disorders: No 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 System 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 Disorders: No Genitourinary Hx Genitourinary Disorders: No Gastrointestinal Hx Gastrointestinal Disorders: No Gastrointestinal Disorders: Gastroesophageal Reflux, Liver Disease/Jaundice Musculoskeletal Hx Musculoskeletal Disorders: No Endocrine Hx Endocrine Disorders: No HEENT HX ENT Disorders: No Cancer Hx Cancer: No Cancer: Bladder Psychosocial Hx Psychiatric Problems: No Behavioral Health Disorders: Anxiety, Depression Integumentary HX Skin/Integumentary Disorder: No Blood Transfusions Hx Blood Disorders: No Adverse Reaction to a Blood Tr: No Reviewed Nursing Assessment Reviewed/Agree w Nursing PMH: Yes Family Medical History Significant Family History: No Pertinent Family Hx Physical Exam Vital Signs Vital Sign - Last 12Hours 01/09/17 13:08 Temp 98.2 Pulse 69 Resp 18 B/P (MAP) 138/84 Pulse Ox 98 O2 Delivery Room Air Capillary Refill : Less Than 3 Seconds General Appearance: No Apparent Distress, WD/WN HEENT: PERRL/EOMI, Pharynx Normal Neck: Normal Inspection, Non Tender, Supple Respiratory: Lungs Clear, Normal Breath Sounds, No Respiratory Distress Cardiovascular: Regular Rate, Rhythm, No Murmur, Normal Peripheral Pulses Back: Normal Inspection Extremity: Normal Capillary Refill, Other (swelling and generalized tenderness of the left shoulder. Scattered areas of ecchymosis to the left shoulder. Incisions intact without evidence of erythema, warmth, or drainage.) Neurologic/Psychiatric: Alert, Oriented x3, No Motor/Sensory Deficits, Normal Mood/Affect Skin: Normal Color, Warm/Dry, Other (Scattered areas of ecchymosis to the left shoulder. Incisions intact without evidence of erythema, warmth, or drainage.) Progress/Results/Core Measures Results/Orders My Orders Orders - TINO MURPHY Morphine Injection (Morphine Injection (01/09/17 13:35) Diazepam Tablet (Valium Tablet) (01/09/17 14:30) Vital Signs/I&O Blood Pressure Mean: 102 Departure Communication Progress Notes Patient is allergic to Compazine, but states she IS able to take Phenergan. Patient was given morphine area then reported to nursing staff that she felt like she is still having muscle spasm. Will give patient one dose of IM prior to discharge. Discharge to home with follow-up as an outpatient with Dr. Carey. Patient instructed to contact his office Wednesday for appointment time. Impression Impression: Primary Impression: Postoperative pain of extremity Additional Impression: Status post rotator cuff repair Disposition: HOME, SELF-CARE Condition: Improved Departure-Patient Inst. Decision time for Depature: 14:04 Referrals: LIA MONTES DO (PCP/Family) Primary Care Physician LANE CAREY DO Patient Instructions: DR. CAREY SHOULDER ARTH D/C Add. Discharge Instructions: All discharge instructions reviewed with patient and/or family. Voiced understanding. Medications as instructed. Increase oxycodone 5/325 mg to 1-2 by mouth every 4-6 hours for pain. Ice packs for 20 minute intervals as needed for pain. Continue activities as instructed by Dr. Carey. Follow-up with Dr. Carey this week for recheck, call Wednesday for appointment time. Return to the emergency department for worsened pain, redness, drainage, fever, or any other concerns. Scripts Promethazine HCl (Promethazine Tablet) 25 Mg Tablet 25 MG PO Q6H Y for NAUSEA/VOMITING, #6 TAB 0 Refills Prov: TINO MURPHY 01/09/17 TINO MURPHY Jan 09, 2017 13:59
[2017-01-09] MEDS ORDERED: PROM25TA14 PO (14:10)
[2017-01-09] MEDS ORDERED: DIAZEPAM 5 MG (VALIUM) TABLET PO ONE (14:30)
[2017-01-09 15:06] VITALS: BP 138/84
--- OUTSIDE RECORDS SUMMARY | 2017-02-14 04:51 | XMS REPORT | Continuity of Care Document ---
Author Author [facility] Organization [facility] Address Unknown Phone Unavailable Care Team Providers Care Grocery Stocker Name Role Phone No Pcp, Na PCP Unavailable Source Comments Some departments are not documenting in the electronic medical record. If you do not see the information that you expected, contact Release of Information in the Health Information Management department at [phone] for further assistance in locating additional records.[facility] Active Allergies and Adverse Reactions Allergen Noted Date Severity Reactions Comments Atarax 05/30/2011 DYSTONIA Bactrim 05/30/2011 HIVES Ceclor 05/30/2011 HIVES Compazine 05/30/2011 DYSTONIA Fentanyl 05/30/2011 HIVES Keflex 05/30/2011 HIVES Nsaids (Non-Steroidal 05/30/2011 HIVES "Hives and Bleeding" Anti-Inflammatory Drug) Oxycontin 05/30/2011 HIVES "Able to take Oxycodone without problems" Pcn 05/30/2011 HIVES Titanium 05/30/2011 SEE COMMENTS "Titanium-surgical steel=osteomyelitis" Tylenol 05/30/2011 SEE COMMENTS "Liver problems" Vioxx 05/30/2011 HIVES Zofran 05/30/2011 HIVES, NAUSEA AND "projectile vomiting" VOMITING Current Medications Prescription Sig. Disp. Refills Start End Date Status Date carvedilol (COREG) 12.5 Take 12.5 mg by mouth Active mg tablet twice daily with meals. ARIPiprazole (ABILIFY) 5 Take 5 mg by mouth daily. Active mg tablet traMADol (ULTRAM) 50 mg Take 1 Tab by mouth every 30 Tab 0 20 Active tablet 6 hours as needed for 13 Pain. levofloxacin (LEVAQUIN) Take 500 mg by mouth Active 500 mg tablet daily. oxyCODONE (ROXICODONE) 5 Take 1 Tab by mouth every 10 Tab 0 08/10/20 Active mg tablet 4 hours as needed for 14 Pain Active Problems Problem Noted Date Elevated blood sugar 06/08/2013 Hypertension 06/08/2013 Obesity 06/08/2013 At risk for diabetes mellitus 06/08/2013 Most Recent Encounters Date Type Specialty Providers Description 12/06/2016 [facility] Miguel A Rodriguez MD Encounter 12/06/2016 Screening Form Social History Tobacco Use Types Packs/Day Years Used Date Current Every Day Smoker Cigarettes 1 Smokeless Tobacco: Never Used Alcohol Use Drinks/Week oz/Week Comments No Last Filed Vital Signs Vital Sign Reading Time Taken Blood Pressure 135/77 12/06/2016 6:14 AM [facility]ER Pulse 70 12/06/2016 3:00 AM [facility] Temperature 36.7 C (98.1 F) 12/06/2016 1:37 AM [facility] BROKER Respiratory Rate - - Height 1.676 m (5' 6") 06/08/2013 10:52 AM CDT Weight 108.863 kg (240 lb) 12/06/2016 1:37 AM [facility] BROKER Body Mass Index 38.76 12/06/2016 1:37 AM [facility]ER Oxygen Saturation 94% 12/06/2016 6:14 AM [facility] BR[facility]ER Plan of Care Health Maintenance Due Date Last Done Comments Hepatitis C Screening 1959 Physical (Comprehensive) 1966 Exam Pertussis Vaccine 1970 Tetanus Vaccine 1976 Dilated Eye Exam 1977 Foot Exam 1977 Hba1c 1977 Microalbumin 1977 Pneumonia Vaccine (Dm) 1977 Cervical Cancer Screening 1980 Breast Cancer Screening 1999 Colorectal Cancer 2009 Screening Influenza Vaccine 06/04/2017 Results from Last 3 Months * MRI C-SPINE WO CONTRAST (12/06/2016 5:03 AM) Impressions Limited examination due to motion artifact with probable moderate neuroforaminal stenosis bilaterally at C5-C6 and C6-C7. By my electronic signature, I attest that I have personally reviewed the images for this examination and formulated the interpretations and opinions expressed in this report Finalized by Jluis Mccullough M.D. on 12/06/2016 6:02 AM. Dictated by Donald Anderson M.D. on 12/06/2016 5:08 AM. Narrative EXAM: MRI C-SPINE HISTORY: 56-year-old female, new onset LUE weakness. Bilateral upper extremity pain. Technique: Multiple sagittal and axial MR sequences were obtained of the cervical spine. Comparison: None FINDINGS: Motion artifact severely limits examination. There is normal cervical alignment. The vertebral body heights are maintained. There is normal marrow signal.The cervical cord is normal in size and signal. At C5-C6 and C6-C7 there is likely moderate bilateral neuroforaminal narrowing. There is no significant central or neural foraminal narrowing at other levels. The paraspinous soft tissues are unremarkable. Procedure Note Interface, Radiant Results - Sun Dec 06, 2016 6:05 AM C[facility] BROKER EXAM: MRI C-SPINE HISTORY: 56-year-old female, new onset LUE weakness. Bilateral upper extremity pain. Technique: Multiple sagittal and axial MR sequences were obtained of the cervical spine. Comparison: None FINDINGS: Motion artifact severely limits examination. There is normal cervical alignment. The vertebral body heights are maintained. There is normal marrow signal. The cervical cord is normal in size and signal. At C5-C6 and C6-C7 there is likely moderate bilateral neuroforaminal narrowing. There is no significant central or neural foraminal narrowing at other levels. The paraspinous soft tissues are unremarkable. IMPRESSION Limited examination due to motion artifact with probable moderate neuroforaminal stenosis bilaterally at C5-C6 and C6-C7. By my electronic signature, I attest that I have personally reviewed the images for this examination and formulated the interpretations and opinions expressed in this report Finalized by Jluis Mccullough M.D. on 12/06/2016 6:02 AM. Dictated by Donald Anderson M.D. on 12/06/2016 5:08 AM.
--- OUTSIDE RECORDS SUMMARY | 2017-02-14 04:51 | XMS REPORT ---
Author Author MAURO RILEY Organization [facility] Address [address] [place] [address] Care Team Providers Care Edi Specialist Name Role Phone MAURO RILEY Unavailable PROBLEMS Type Condition ICD9-CM Code ZPO34-DF Code Onset Dates Condition Status SNOMED Code Assessment Dysuria R30.0 May, Active 24259961 Assessment Encounter to establish care Z76.89 May, Active 520216650 Assessment Other chronic pain G89.29 May, Active 32164330 Assessment Pain in right knee M25.561 May, Active 63530121 Assessment Essential hypertension I10 May, Active 91999419 Assessment Pain in left ankle and joints of left foot M25.572 May, Active 218050228 ALLERGIES Substance Reaction Event Type Date Status Compazine Unknown Drug Allergy May, Active Cefaclor ER Unknown Drug Allergy May, Active Penicillin V Potassium anaphylaxis Drug Allergy May, Active Bactrim Unknown Drug Allergy May, Active SOCIAL HISTORY No smoking Hx information available PLAN OF CARE VITAL SIGNS Weight 228 lbs 2016-05-28 Heart Rate 80 bpm 2016-05-28 Respiratory Rate 18 2016-05-28 Blood pressure systolic 140 mmHg 2016-05-28 Blood pressure diastolic 80 mmHg 2016-05-28 MEDICATIONS Medication Instructions Dosage Frequency Start Date End Date Duration Status Omeprazole 40 MG Orally Once a day 1 capsule 24h Active Nitrofurantoin Monohyd Macro 100 MG Orally every 12 hrs 1 capsule with food 12h Active Promethazine HCl 25 MG Orally every 12 hrs 1 tablet as needed 12h Active Carvedilol 12.5 MG Active RESULTS Name Result Date Reference Range UA LONG DIP (IN HOUSE) 2016-05-28 Lot # [id number] Exp date 05/2017 Clarity clear Color yellow Odor no GLU neg ADRYAN neg KET trace SG 1.025 BLO neg pH 5.5 Protein neg URO 0.2 NIT neg DENG neg Lot # Exp date PROCEDURES Procedure Date Ordered Related Diagnosis Body Site URINALYSIS, AUTO, W/O SCOPE May 28, 2016 [facility] VISIT NEW PATIENT May 28, 2016 Office Visit, New Pt., Level 3 May 28, 2016 IMMUNIZATIONS No Known Immunizations
--- OUTSIDE RECORDS SUMMARY | 2017-02-14 04:51 | XMS REPORT ---
Author Author MAURO RILEY [facility] e[employer] Address Unknown Phone Unavailable Care Team Providers Care Auction Clerk Name Role Phone MAURO RILEY Unavailable Allergies, Adverse Reactions, Alerts Substance Reaction Event Type Compazine Info Not Available Drug Allergy Cefaclor ER Info Not Available Drug Allergy Penicillin V Potassium anaphylaxis Drug Allergy Bactrim Info Not Available Drug Allergy Problems Problem Type Condition Code Onset Dates Condition Status Assessment Dysuria R30.0 Active Assessment Urinary tract infection, site unspecified N39.0 Active Assessment Acute pain of left shoulder M25.512 Active Assessment Other chronic pain G89.29 Active Medications Medication Code System Code Instructions Start Date End Date Status Dosage Seroquel [facility] [address]-75 100 MG Orally Once a day 1 tablet Aspirin [facility] [address]-44 325 MG Orally Once a day or as needed 1 tablet Levaquin [facility] [address]-64 500 MG Orally Once a day Jun 25, 2016 Jul 05, 2016 1 tablet Hydrochlorothiazide [facility] [address]-67 25 MG Orally Once a day 1 tablet Carvedilol [facility] [address]-49 12.5 MG Orally not defined Omeprazole [facility] [address]-58 40 MG Orally Once a day 1 capsule Naproxen [facility] [address]-81 500 MG Orally every 12 hrs Jun 25, 2016 1 tablet as needed Procedures Procedure Coding System Code Date [facility] NO[facility] Jun 25, 2016 [facility] VISIT ESTABLISHED PATIENT CPT-4 G0467 Jun 25, 2016 URINALYSIS, AUTO, W/O SCOPE CPT-4 31690 Jun 25, 2016 Office Visit, Est Pt., Level 3 CPT-4 50990 Jun 25, 2016 Vital Signs Date/Time: Jun 25, 2016 Cardiac Monitoring Heart Rate 78 bpm Weight 228.5 lbs Height 66.0 in BMI 36.88 Index Blood Pressure Diastolic 102 mmHg Blood Pressure Systolic 160 mmHg Results Name Result Date Reference Range Unit Abnormality Flag UA LONG DIP (IN HOUSE) ----DENG 1+ 20160625 ----NIT Positive 20160625 ----Exp date 20160625 ----Lot # [id number] ----SG >=1.030 20160625 ----KET Negative 20160625 ----ADRYAN Negative 20160625 ----GLU Negative 20160625 ----Odor Strong 20160625 ----pH 6.5 20160625 ----BLO 1+ 20160625 ----URO 0.2 20160625 ----Protein Trace 20160625 ----Lot # [id number] ----Exp date 20160625 ----Clarity Cloudy 20160625 ----Color [place] 20160625 Summary Purpose eClinicalWorks Submission
--- OUTSIDE RECORDS SUMMARY | 2017-02-14 04:51 | XMS REPORT ---
Author Author MAURO RILEY [facility] [employer] Address Unknown Phone Unavailable Care Team Providers Care Auto Winder Name Role Phone MAURO RILEY Unavailable Allergies, Adverse Reactions, Alerts Substance Reaction Event Type Compazine Info Not Available Drug Allergy Cefaclor ER Info Not Available Drug Allergy Penicillin V Potassium anaphylaxis Drug Allergy Bactrim Info Not Available Drug Allergy Problems Problem Type Condition Code Onset Dates Condition Status Assessment Acute cystitis without hematuria N30.00 Active Assessment Acute pain of right knee M25.561 Active Assessment Dysuria R30.0 Active Medications Medication Code System Code Instructions Start Date End Date Status Dosage Hydrocodone-Acetaminophen [facility] [address]-56 10-325 MG Orally every 6 hrs Jun 11, 2016 1 tablet as needed Aspirin [facility] [address]-80 325 MG Orally Once a day or as needed 1 tablet Hydrocodone-Acetaminophen [facility] [address]-99 10-325 MG Orally every 6 hrs 1 tablet as needed Carvedilol [facility] [address]-57 12.5 MG Orally not defined Cipro [facility] [address]-44 500 MG Orally Twice a day Jun 11, 2016 Jun 21, 2016 1 tablet Seroquel [facility] [address]-05 100 MG Orally Once a day 1 tablet Omeprazole [facility] [address]-70 40 MG Orally Once a day 1 capsule Procedures Procedure Coding System Code Date X-RAY EXAM OF KNEE, 3 CPT-4 21585 Jun 11, 2016 [facility] NOBLL Jun 11, 2016 URINALYSIS, AUTO, W/O SCOPE CPT-4 58154 Jun 11, 2016 Office Visit, Est Pt., Level 3 CPT-4 65926 Jun 11, 2016 [facility] VISIT ESTABLISHED PATIENT CPT-4 G0467 Jun 11, 2016 Vital Signs Date/Time: Jun 11, 2016 Cardiac Monitoring Heart Rate 68 bpm Weight 225.5 lbs Height 66.0 in BMI 36.39 Index Blood Pressure Diastolic 90 mmHg Blood Pressure Systolic 160 mmHg Results Name Result Date Reference Range Unit Abnormality Flag UA LONG DIP (IN HOUSE) ----DENG Negative 20160611 ----NIT Positive 20160611 ----Exp date 20160611 ----Lot # [id number] ----SG 1.020 20160611 ----KET Negative 20160611 ----ADRYAN Negative 20160611 ----GLU Negative 20160611 ----Odor Yes 20160611 ----pH 6.0 20160611 ----BLO Trace-lysed 20160611 ----URO 1.0 20160611 ----Protein Negative 20160611 ----Lot # [id number] ----Exp date 20160611 ----Clarity Clear 20160611 ----Color Yellow 20160611 CULTURE, URINE ----Urine Culture, Routine Final report [id number] A Summary Purpose eClinicalWorks Submission
== END 2017-01-09 14:35 | disposition home or self-care (01) ==
LOC: ER 13:07 → EDUNIT# 13:07 → ER 14:35
DX: G89.18 Other acute postprocedural pain (principal); I10 Essential (primary) hypertension; F17.210 Nicotine dependence, cigarettes, uncomplicated; Z79.899 Other long term (current) drug therapy
CPT/HCPCS: 96372; 99281

== ENCOUNTER 2017-01-11 18:23 | Emergency (ER) | payer MEDICARE, MEDICAID ==
[~2017-01-11] VITALS: Ht 167.6 cm; Wt 112.0 kg
[~2017-01-11 18:23] MED LIST changes: +OXYC-471 PO
[2017-01-11] MEDS ORDERED: NS IV 1000 ML 1,000 ML IV ONE (18:34)
[2017-01-11 18:39] LABS: BILIRUBIN,URINE NEGATIVE (NEGATIVE); KETONES,URINE NEGATIVE (NEGATIVE); LEUKOCYTE ESTERASE ,URINE 1+ (NEGATIVE); NITRITE,URINE NEGATIVE (NEGATIVE); PH,URINE 8 (5-9); PROTEIN,URINE NEGATIVE (NEGATIVE); UROBILINOGEN,URINE NORMAL (NORMAL)
[2017-01-11] MEDS ORDERED: fentaNYL INJECTION 100 MCG/2 ML AMP IVP ONE (18:45)
[2017-01-11 18:52] LABS: WBC,URINE 0-2 /HPF
--- NOTE | 2017-01-11 19:40 | ED General ---
General Chief Complaint: General Problems/Pain Stated Complaint: VOMITING Nursing Triage Note: PT TO ED PER EMS FOR C/O UNCONTROLLABLE PAIN TO BILAT SHOULDERS, ESPECIALLY SINCE SURGERY LAST WEEK, N/V ONSET LAST NOC. Nursing Sepsis Screen: No Definite Risk Source of Information: Patient Exam Limitations: No Limitations History of Present Illness Time Seen by Provider: 18:24 Initial Comments This 56-year-old woman presents to the emergency room via EMS with complaints of vomiting 10-12 times since last night. She had shoulder surgery performed last Wednesday. She has been taking oxycodone for the pain. She is also been taking Zofran which helps briefly but does not give her long acting relief. Vital signs were stable and within normal limits for EMS. EMS reports they also ran her to the emergency room on Wednesday for shortness of air. EMS states she subjectively looks better today than she did on Wednesday. She denies fever or diarrhea. Last bowel movement was within the last 24 hours and was normal. She denies constipation. Her last Zofran dose was at 13:00. Her last oxycodone dose was at 10:00. Allergies and Home Medications Allergies Coded Allergies: Penicillins (Verified Allergy, Unknown, 06/20/16) cefaclor (Verified Allergy, Unknown, 06/20/16) hydroxyzine (Verified Allergy, Unknown, 06/20/16) prochlorperazine (Verified Allergy, Unknown, 06/20/16) sulfamethoxazole (Verified Allergy, Unknown, 06/20/16) trimethoprim (Verified Allergy, Unknown, 06/20/16) Home Medications Carvedilol 12.5 Mg Tablet, 12.5 MG PO BID, (Reported) Cyclobenzaprine HCl 10 Mg Tablet, 10 MG PO Q8H, #12 Ref 0 Prescribed by: MAXIMILIANO BARKER on 11/14/16 1807 Hydrochlorothiazide 25 Mg Tablet, 25 MG PO DAILY, (Reported) Ibuprofen 200 Mg Tablet, 800 MG PO DAILY, (Reported) Omeprazole 40 Mg Capsule.dr, 40 MG PO DAILY, (Reported) Oxycodone HCl/Acetaminophen 1 Each Tablet, 1 EACH PO, (Reported) Promethazine HCl 25 Mg Tablet, 25 MG PO Q6H PRN for NAUSEA/VOMITING, #6 Ref 0 Prescribed by: TINO MURPHY on 01/09/17 1410 Constitutional: no symptoms reported EENTM: no symptoms reported Respiratory: see HPI Cardiovascular: no symptoms reported Gastrointestinal: see HPI Genitourinary: no symptoms reported Musculoskeletal: see HPI Skin: no symptoms reported Psychiatric/Neurological: No Symptoms Reported Past Cmjrpww-Wnlocx-Ehrepf Hx Patient Social History Alcohol Use: Denies Use Recreational Drug Use: No Smoking Status: Current Everyday Smoker Type Used: Cigarettes Recent Foreign Travel: No Contact w/Someone Who Travel: No Recent Infectious Disease Expo: No Recent Hopitalizations: No Immunizations Up To Date Tetanus Booster (TDap): Less than 5yrs Date of Pneumonia Vaccine: Oct 04, 2010 Seasonal Allergies Seasonal Allergies: Yes Surgeries HX Surgeries: Yes (SHOULDER, KNEE) Surgeries: Hysterectomy, Orthopedic Respiratory Hx Respiratory Disorders: Yes Respiratory Disorders: Asthma Cardiovascular Hx Cardiac Disorders: Yes Cardiac Disorders: Deep Vein Thrombosis, Hypertension Neurological Hx Neurological Disorders: No 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 System 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 Disorders: No Genitourinary Hx Genitourinary Disorders: No Gastrointestinal Hx Gastrointestinal Disorders: Yes Hx Gastrointestinal Disorders: No Gastrointestinal Disorders: Gastroesophageal Reflux, Liver Disease/Jaundice Musculoskeletal Hx Musculoskeletal Disorders: No Endocrine Hx Endocrine Disorders: No HEENT HX ENT Disorders: No Cancer Hx Cancer: Yes Cancer: Bladder Psychosocial Hx Psychiatric Problems: Yes Behavioral Health Disorders: Anxiety, Depression Integumentary HX Skin/Integumentary Disorder: No Blood Transfusions Hx Blood Disorders: No Adverse Reaction to a Blood Tr: No Family Medical History Significant Family History: No Pertinent Family Hx Physical Exam Vital Signs Vital Sign - Last 12Hours 01/11/17 01/11/17 18:25 20:31 Temp 97.2 Pulse 82 Resp 20 B/P (MAP) 183/102 Pulse Ox 97 O2 Delivery Room Air Capillary Refill : Less Than 3 Seconds General Appearance: WD/WN, Mild Distress HEENT: PERRL/EOMI, Normal ENT Inspection Neck: Normal Inspection Respiratory: Lungs Clear, Normal Breath Sounds, No Accessory Muscle Use, No Respiratory Distress Cardiovascular: Regular Rate, Rhythm, No Edema Gastrointestinal: Normal Bowel Sounds, Non Tender, Soft Extremity: Normal Inspection, Other (left arm and postoperative sling) Neurologic/Psychiatric: Alert, Oriented x3, No Motor/Sensory Deficits, Normal Mood/Affect, cloth bleaching range tender II-XII Norm as Tested Skin: Normal Color, Warm/Dry Progress/Results/Core Measures Results/Orders Lab Results Laboratory Tests Test 01/11/17 18:28 Range/Units Urine Color YELLOW Urine Clarity CLEAR Urine pH 8 5-9 Urine Specific Armstrong 1.010 L 1.016-1.022 Urine Protein NEGATIVE NEGATIVE Urine Glucose (UA) NEGATIVE NEGATIVE Urine Ketones NEGATIVE NEGATIVE Urine Nitrite NEGATIVE NEGATIVE Urine Bilirubin NEGATIVE NEGATIVE Urine Urobilinogen NORMAL NORMAL MG/DL Urine Leukocyte Esterase 1+ H NEGATIVE Urine RBC (Auto) NEGATIVE NEGATIVE Urine RBC RARE /HPF Urine WBC 0-2 /HPF Urine Squamous Epithelial Cells 5-10 /HPF Urine Crystals NONE /LPF Urine Bacteria TRACE /HPF Urine Casts NONE /LPF Urine Mucus NEGATIVE /LPF Urine Culture Indicated NO My Orders Orders - ANNABELLE MILLARD MD Ua Culture If Indicated (01/11/17 18:34) Saline Lock/Iv-Start (01/11/17 18:34) Ns Iv 1000 Ml (Sodium Chloride 0.9%) (01/11/17 18:34) Fentanyl Injection (Sublimaze Injection (01/11/17 18:45) Ondansetron Injection (Zofran Injectio (01/11/17 19:45) Morphine Injection (Morphine Injection (01/11/17 19:45) Medications Given in ED Current Medications Medications Dose Ordered Sig/Jeanne Route Start Time Stop Time Status Last Admin Dose Admin Fentanyl Citrate 50 mcg ONCE ONCE IVP 01/11/17 18:45 01/11/17 18:46 DC 01/11/17 19:05 50 MCG Morphine Sulfate 5 mg ONCE ONCE IVP 01/11/17 19:45 01/11/17 19:46 DC 01/11/17 20:04 5 MG Ondansetron HCl 8 mg ONCE ONCE IVP 01/11/17 19:45 01/11/17 19:46 DC 01/11/17 20:04 8 MG Sodium Chloride 1,000 ml @ 0 mls/hr Q0M ONCE IV 01/11/17 18:34 01/11/17 18:36 DC 01/11/17 19:05 1,000 MLS/HR Vital Signs/I&O Vital Sign - Last 12Hours 01/11/17 01/11/17 18:25 20:31 Temp 97.2 Pulse 82 70 Resp 20 20 B/P (MAP) 183/102 Pulse Ox 97 O2 Delivery Room Air Intake and Output 01/11/17 23:59 Intake Total 400 ml Balance 400 ml Blood Pressure Mean: 129 Progress Note #1: Time: 19:40 Progress Note Patient reports she is still having significant pain after the fentanyl. Nausea is still intense. IV fluids are infusing. Lab is having difficulty obtaining blood work. Patient reports urinary frequency but UA is unremarkable. Progress Note #2: Progress Note After a few attempts at blood draw, patient refuses any further attempts. She reports feeling better and requests discharge. She did not want to wait for labs or IV fluids to be infused. Patient was dismissed. Departure Impression Impression: Primary Impression: Nausea and vomiting Qualified Codes: R11.2 - Nausea with vomiting, unspecified Additional Impressions: Postoperative pain Anxiety Disposition: HOME, SELF-CARE Condition: Improved Departure-Patient Inst. Decision time for Depature: 20:15 Referrals: LIA MONTES DO (PCP/Family) Primary Care Physician Patient Instructions: Nausea and Vomiting, Adult Add. Discharge Instructions: You may use your Zofran every 4 hours as needed for nausea and vomiting. Start with a clear liquid diet and gradually advance your diet with small quantities of bland food as tolerated. Stay well-hydrated. Use your other medications as prescribed. Follow-up with your primary care provider and surgeon later this week. Return to care if symptoms worsen. All discharge instructions reviewed with patient and/or family. Voiced understanding. ANNABELLE MILLARD MD Jan 11, 2017 19:40
[2017-01-11] MEDS ORDERED: ONDANSETRON 4 MG/2 ML (SDV) Z0FRAN IVP ONE (19:45)
[2017-01-11] MEDS ORDERED: morphine INJ 10 MG/ML 1ML (SYR OR VIAL) IVP ONE (19:45)
[2017-01-11 20:31] VITALS: BP 188/104
== END 2017-01-11 20:31 | disposition home or self-care (01) ==
LOC: EDUNIT# 18:23 → ER 18:24
DX: R11.2 Nausea with vomiting, unspecified (principal); G89.18 Other acute postprocedural pain; F41.9 Anxiety disorder, unspecified
CPT/HCPCS: 81000; 96361; 96374; 96375

== ENCOUNTER 2017-02-28 21:55 | Emergency (ER) | payer MEDICARE, MEDICAID ==
[~2017-02-28] VITALS: Ht 167.6 cm; Wt 109.3 kg
[2017-02-28] MEDS ORDERED: RIVA15TA PO (22:32)
[2017-02-28 22:42] LABS: KETONES,URINE 1+ (NEGATIVE); LEUKOCYTE ESTERASE ,URINE 2+ (NEGATIVE); NITRITE,URINE POSITIVE (NEGATIVE); PH,URINE 5 (5-9); PROTEIN,URINE 3+ (NEGATIVE); UROBILINOGEN,URINE 1 MG/DL (NORMAL)
[2017-02-28] MEDS ORDERED: morphine INJ 10 MG/ML 1ML (SYR OR VIAL) IV ONE (22:45)
[2017-02-28] MEDS ORDERED: PROMETHAZINE INJ 25 MG/ML (PHENERGAN) AMP IM ONE (22:45)
[2017-02-28 22:52] LABS: BILIRUBIN,URINE 1+ (NEGATIVE)
--- NOTE | 2017-02-28 22:54 | ED GU-Female ---
General Chief Complaint: -Female Stated Complaint: VAG BLEED HEAD PAIN Nursing Triage Note: BLOOD IN URINE Nursing Sepsis Screen: No Definite Risk Source: patient Exam Limitations: no limitations History of Present Illness Time seen by provider: 22:52 Initial Comments Patient complains of dark red blood in her urine for the past several hours. She also has bilateral flank pain and some right sided abdominal pain. She is status post hysterectomy years ago. She denies fevers or dysuria. Allergies and Home Medications Allergies Coded Allergies: Penicillins (Verified Allergy, Unknown, 06/20/16) cefaclor (Verified Allergy, Unknown, 06/20/16) hydroxyzine (Verified Allergy, Unknown, 06/20/16) prochlorperazine (Verified Allergy, Unknown, 06/20/16) sulfamethoxazole (Verified Allergy, Unknown, 06/20/16) trimethoprim (Verified Allergy, Unknown, 06/20/16) Home Medications Carvedilol 12.5 Mg Tablet, 12.5 MG PO BID, (Reported) Hydrochlorothiazide 25 Mg Tablet, 25 MG PO DAILY, (Reported) Nitrofurantoin Monohyd/M-Cryst 100 Mg Capsule, 1 TAB PO BID for 10 Days Prescribed by: JD SNOW on 02/28/17 2309 Oxycodone HCl/Acetaminophen 1 Each Tablet, 1 EACH PO, (Reported) Rivaroxaban 15 Mg Tablet, 15 MG PO BID, #42 (Reported) Constitutional: no symptoms reported Respiratory: no symptoms reported Cardiovascular: no symptoms reported Genitourinary: flank pain, hematuria, pain All Other Systemes Reviewed Negative Unless Noted: Yes Past Vaihyvi-Uxrrdz-Exsgzf Hx Patient Social History Alcohol Use: Rarely Uses Recreational Drug Use: No Smoking Status: Current Everyday Smoker Type Used: Cigarettes 2nd Hand Smoke Exposure: Yes Recent Foreign Travel: No Contact w/Someone Who Travel: No Recent Infectious Disease Expo: No Recent Hopitalizations: No Immunizations Up To Date Tetanus Booster (TDap): Less than 5yrs Date of Pneumonia Vaccine: Oct 04, 2010 Seasonal Allergies Seasonal Allergies: Yes Surgeries HX Surgeries: Yes (SHOULDER, KNEE) Surgeries: Hysterectomy, Orthopedic Respiratory Hx Respiratory Disorders: Yes Respiratory Disorders: Asthma Cardiovascular Hx Cardiac Disorders: Yes Cardiac Disorders: Deep Vein Thrombosis, Hypertension Neurological Hx Neurological Disorders: No 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 System 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 Disorders: 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 Genitourinary Hx Genitourinary Disorders: No Genitourinary Disorders: UTI-Chronic Gastrointestinal Hx Gastrointestinal Disorders: Yes Gastrointestinal Disorders: Gastroesophageal Reflux, Liver Disease/Jaundice Musculoskeletal Hx Musculoskeletal Disorders: No Endocrine Hx Endocrine Disorders: No HEENT HX ENT Disorders: No Cancer Hx Cancer: Yes Cancer: Bladder Psychosocial Hx Psychiatric Problems: Yes Behavioral Health Disorders: Anxiety, Depression Integumentary HX Skin/Integumentary Disorder: No Blood Transfusions Hx Blood Disorders: No Adverse Reaction to a Blood Tr: No Reviewed Nursing Assessment Reviewed/Agree w Nursing PMH: Yes Family Medical History Significant Family History: No Pertinent Family Hx Physical Exam Vital Signs Vital Sign - Last 12Hours 02/28/17 22:32 Temp 98.0 Pulse 82 Resp 16 B/P (MAP) 137/90 Pulse Ox 93 O2 Delivery Room Air Capillary Refill : Less Than 3 Seconds General Appearance: WD/WN, no apparent distress Neck: supple Cardiovascular: regular rate, rhythm Respiratory: lungs clear Gastrointestinal: soft Extremities: normal inspection Neurologic/Psychiatric: alert, normal mood/affect Skin: normal color, warm/dry Progress/Results/Core Measures Results/Orders Lab Results Laboratory Tests Test 02/28/17 22:35 Range/Units Urine Color BROWN H Urine Clarity VERY CLOUDY H Urine pH 5 5-9 Urine Specific [place] 1.025 H 1.016-1.022 Urine Protein 3+ H NEGATIVE Urine Glucose (UA) NEGATIVE NEGATIVE Urine Ketones 1+ H NEGATIVE Urine Nitrite POSITIVE H NEGATIVE Urine Bilirubin 1+ H NEGATIVE Urine Urobilinogen 1 NORMAL MG/DL Urine Leukocyte Esterase 2+ H NEGATIVE Urine RBC (Auto) 5+ H NEGATIVE Urine RBC TNTC H /HPF Urine WBC 5-10 H /HPF Urine Squamous Epithelial Cells NONE /HPF Urine Crystals NONE /LPF Urine Bacteria MODERATE H /HPF Urine Casts NONE /LPF Urine Mucus NEGATIVE /LPF Urine Culture Indicated YES My Orders Orders - JD SNOW MD Ua Culture If Indicated (02/28/17 22:36) Promethazine Injection (Phenergan Injec (02/28/17 22:45) Urine Culture (02/28/17 22:35) Vital Signs/I&O Vital Sign - Last 12Hours 02/28/17 22:32 Temp 98.0 Pulse 82 Resp 16 B/P (MAP) 137/90 Pulse Ox 93 O2 Delivery Room Air Blood Pressure Mean: 106 Progress Note : Progress Note Patient asked for something for pain. I asked her what she would like. She immediately responded morphine. I got her [facility] report which revealed multiple narcotics at multiple pharmacies and doctors. I shared this information with her and she became visibly agitated and said she had to leave because of some blood in the emergency room with her son. Did not wait for prescriptions or discharge instructions. Departure Impression Impression: Primary Impression: Urinary tract infection Additional Impression: Hematuria Disposition: 01 HOME, SELF-CARE Condition: Stable Departure-Patient Inst. Decision time for Depature: 23:06 Referrals: LIA MONTES DO (PCP/Family) Primary Care Physician Patient Instructions: Urinary Tract Infection, Adult (DC) Scripts Nitrofurantoin Monohyd/M-Cryst (Macrobid 100 mg Capsule) 100 Mg Capsule 1 TAB PO BID for 10 Days, CAP Prov: JD SNOW MD 02/28/17 JD SNOW MD February 28, 2017 22:54
[2017-02-28] MEDS ORDERED: NITR-65 PO (23:09)
[2017-02-28 23:27] VITALS: BP 0/0
== END 2017-02-28 23:27 | disposition home or self-care (01) ==
LOC: EDUNIT# 21:55 → ER 22:00
DX: N30.91 Cystitis, unspecified with hematuria (principal); I10 Essential (primary) hypertension; F17.210 Nicotine dependence, cigarettes, uncomplicated; Z90.710 Acquired absence of both cervix and uterus
CPT/HCPCS: 81000; 87088; 87186; 99282

== ENCOUNTER → 2017-05-05 | Outpatient (CLI) | payer MEDICAID, MEDICARE ==
[~2017-05-05] MED LIST changes: +RIVA15TA PO
--- NOTE | 2017-05-05 13:07 | Diagnostic Imaging Report ---
PROCEDURE: CT head without contrast. TECHNIQUE: Multiple contiguous axial images were obtained through the brain without the use of intravenous contrast. INDICATION: Fall. FINDINGS: There is no intracranial hemorrhage, edema or mass effect. The brain parenchyma and castillo-white matter differentiation is preserved. No hydrocephalus. No extra-axial fluid collection. The calvarium, the visualized portions of the paranasal sinuses and orbits appear grossly unremarkable. IMPRESSION: Unremarkable exam. Dictated by: Dictated on workstation # [id number]
== END ==
LOC: RAD 12:14
PROVIDERS: ATTEND Family Medicine
DX: S09.90XA Unspecified injury of head, initial encounter (principal); R47.9 Unspecified speech disturbances; X58.XXXA Exposure to other specified factors, initial encounter; Y99.8 Other external cause status
CPT/HCPCS: 70450

== ENCOUNTER → 2017-05-21 | Outpatient (CLI) | payer MEDICARE, MEDICAID ==
[~2017-05-21] VITALS: Ht 167.6 cm; Wt 109.3 kg
[~2017-05-21] MED LIST changes: +GADOBUTROL 7.5 MMOL/7.5 ML (GADAVIST) VIAL IV ONE; +HYDR-756 PO; +HYDR-757 PO; +IOHEXOL 300 MG/ML 30 ML (OMNIPAQUE 300) VIAL IV ONE; +LIDOCAINE 1% INJ 20 ML (XYLOCAINE) VIAL INJ ONE; +LIDOCAINE 1% INJ 20 ML (XYLOCAINE) VIAL ONE; +LORA1TAB; +NAPR500T8 PO
[2017-05-21 11:20] VITALS: BP 138/81
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
--- NOTE | 2017-05-23 18:34 | Diagnostic Imaging Report ---
INDICATION: Shoulder pain. EXAMINATION: Left shoulder arthrogram for MRI. PROCEDURE: Following aseptic preparation of the skin and administration of local anesthesia, a 22-gauge needle was advanced into the glenohumeral joint using fluoroscopic guidance. Approximately 12 cc of an Omnipaque 300, sodium chloride and Gadavist solution was infused. The patient tolerated the procedure well and was dismissed to the MR suite in good condition. FLUOROSCOPY TIME: 56.6 seconds of fluoroscopy time was utilized. IMPRESSION: There has been a successful injection of the left glenohumeral joint. MRI is pending for further study. Dictated by: Dictated on workstation # [id number]
== END ==
LOC: RAD 10:51
PROVIDERS: ATTEND Orthopaedic Surgery
DX: M75.102 Unspecified rotator cuff tear or rupture of left shoulder, not specified as traumatic (principal)
CPT/HCPCS: 23350; 73040; 73222

== ENCOUNTER 2017-06-19 13:28 | Emergency (ER) | payer MEDICARE, MEDICAID ==
[~2017-06-19] VITALS: Ht 167.6 cm; Wt 109.3 kg
[~2017-06-19 13:28] MED LIST changes: -GADOBUTROL 7.5 MMOL/7.5 ML (GADAVIST) VIAL IV ONE; -HYDR-756 PO; -HYDR-757 PO; -IOHEXOL 300 MG/ML 30 ML (OMNIPAQUE 300) VIAL IV ONE; -LIDOCAINE 1% INJ 20 ML (XYLOCAINE) VIAL INJ ONE; -LIDOCAINE 1% INJ 20 ML (XYLOCAINE) VIAL ONE; -LORA1TAB; -NAPR500T8 PO
--- OUTSIDE RECORDS SUMMARY | 2017-06-19 13:35 | XMS REPORT | Clinical Summary ---
Author Author [facility] Organization [facility] Address Unknown Phone Unavailable Care Team Providers Care Flow Match Sofa Cutter Name Role Phone PCP Unavailable Source Comments Some departments are not documenting in the electronic medical record. If you do not see the information that you expected, contact Release of Information in the Health Information Management department at [phone] for further assistance in locating additional records.[facility] Allergies Active Allergy Reactions Severity Noted Date Comments Hydroxyzine Hcl DYSTONIA 05/30/2011 Sulfamethoxazole-Trimetho HIVES 05/30/2011 prim Cefaclor HIVES 05/30/2011 Prochlorperazine DYSTONIA 05/30/2011 Fentanyl HIVES 05/30/2011 Cephalexin HIVES 05/30/2011 Nsaids (Non-Steroidal HIVES 05/30/2011 "Hives and Bleeding" Anti-Inflammatory Drug) Oxycodone HIVES 05/30/2011 "Able to take Oxycodone without problems" Penicillins HIVES 05/30/2011 Titanium SEE COMMENTS 05/30/2011 "Titanium-surgical steel=osteomyelitis" Acetaminophen SEE COMMENTS 05/30/2011 "Liver problems" Rofecoxib HIVES 05/30/2011 Ondansetron Hcl HIVES, NAUSEA AND 05/30/2011 "projectile vomiting" VOMITING Current Medications Prescription Sig. Disp. Refills Start End Date Status Date carvedilol (COREG) 12.5 Take 12.5 mg by mouth Active mg tablet twice daily with meals. ARIPiprazole (ABILIFY) 5 Take 5 mg by mouth daily. Active mg tablet traMADol (ULTRAM) 50 mg Take 1 Tab by mouth every 30 Tab 0 06/08/20 Active tablet 6 hours as needed for 13 Pain. levofloxacin (LEVAQUIN) Take 500 mg by mouth Active 500 mg tablet daily. oxyCODONE (ROXICODONE) 5 Take 1 Tab by mouth every 10 Tab 0 05/13/20 Active mg tablet 4 hours as needed for 14 Pain Active Problems Problem Noted Date Elevated blood sugar 06/08/2013 Hypertension 06/08/2013 Obesity 06/08/2013 At risk for diabetes mellitus 06/08/2013 Social History Tobacco Use Types Packs/Day Years Used Date Current Every Day Smoker Cigarettes 1 Smokeless Tobacco: Never Used Alcohol Use Drinks/Week oz/Week Comments No Sex Assigned at Date Recorded Not on file Last Filed Vital Signs Vital Sign Reading Time Taken Blood Pressure 135/77 12/06/2016 6:14 AM DINKEY ENGINEER Pulse 70 12/06/2016 3:00 AM DINKEY ENGINEER Temperature 36.7 C (98.1 F) 12/06/2016 1:37 AM DINKEY ENGINEER Respiratory Rate - - Oxygen Saturation 94% 12/06/2016 6:14 AM DINKEY ENGINEER Inhaled Oxygen - - Concentration Weight 108.9 kg (240 lb) 12/06/2016 1:37 AM DINKEY ENGINEER Height 167.6 cm (5' 6") 06/08/2013 10:52 AM CDT Body Mass Index 38.74 12/06/2016 1:37 AM DINKEY ENGINEER Plan of Treatment Health Maintenance Due Date Last Done Comments HEPATITIS C SCREENING 1959 PHYSICAL (COMPREHENSIVE) 1966 EXAM PERTUSSIS VACCINE 1970 TETANUS VACCINE 1976 DILATED EYE EXAM 1977 FOOT EXAM 1977 HBA1C 1977 MICROALBUMIN 1977 PNEUMONIA VACCINE (DM) 1977 CERVICAL CANCER SCREENING 1989 BREAST CANCER SCREENING 1999 COLORECTAL CANCER 2009 SCREENING INFLUENZA VACCINE 07/04/2017 Results Not on filefrom Last 3 Months
[2017-06-19] MEDS ORDERED: HYDROmorphone (DILAUDID) 2 MG/ML VIAL IM STA (13:52)
[2017-06-19] MEDS ORDERED: ONDANSETRON 4 MG (ZOFRAN) ORAL DISSOLVE TAB SL STA (13:52)
--- NOTE | 2017-06-19 13:59 | ED Upper Extremity ---
General Chief Complaint: Upper Extremity Stated Complaint: L SIDE ROTATOR CUFF PAIN Source: patient Exam Limitations: no limitations History of Present Illness Time seen by provider: 13:47 Initial Comments Here with report of left-sided shoulder pain. Postop 3 weeks ago from rotator cuff repair. This was their second one in 6 months. She apparently had to have a re-repair due to ceiling falling on her and causing her previous repair to fail. Pain has been fairly persistent since her surgery. She sees her with the doctor on Wednesday. She has pain medicines but states they are not working and she just wants something to get on top of the pain. Denies any numbness or tingling of the hand or problems with use of the left arm. Onset: last week Severity: moderate Pain/Injury Location: left shoulder Method of Injury: other (postoperative pain) Modifying Factors: Worse With Movement, Improves With Rest Allergies and Home Medications Allergies Coded Allergies: Penicillins (Verified Allergy, Unknown, 06/20/16) cefaclor (Verified Allergy, Unknown, 06/20/16) hydroxyzine (Verified Allergy, Unknown, 06/20/16) prochlorperazine (Verified Allergy, Unknown, 06/20/16) sulfamethoxazole (Verified Allergy, Unknown, 06/20/16) trimethoprim (Verified Allergy, Unknown, 06/20/16) Home Medications Carvedilol 12.5 Mg Tablet, 12.5 MG PO BID, (Reported) Hydrochlorothiazide 25 Mg Tablet, 25 MG PO DAILY, (Reported) Nitrofurantoin Monohyd/M-Cryst 100 Mg Capsule, 1 TAB PO BID for 10 Days Prescribed by: JD SNOW on 02/28/17 9788 Oxycodone HCl/Acetaminophen 1 Each Tablet, 1 EACH PO, (Reported) Rivaroxaban 15 Mg Tablet, 15 MG PO BID, #42 (Reported) Constitutional: see HPI, No chills, No fever Respiratory: no symptoms reported Cardiovascular: no symptoms reported Gastrointestinal: no symptoms reported Musculoskeletal: see HPI, joint pain, muscle pain Skin: no symptoms reported Past Ogogndy-Lqcguc-Xicozr Hx Patient Social History Alcohol Use: Denies Use Number of Drinks Today: AA Alcohol Beverage of Choice: Beer Recreational Drug Use: No Smoking Status: Current Everyday Smoker Type Used: Cigarettes 2nd Hand Smoke Exposure: Yes Recent Foreign Travel: No Contact w/Someone Who Travel: No Recent Hopitalizations: No Physical Abuse: No Sexual Abuse: No Immunizations Up To Date Tetanus Booster (TDap): Less than 5yrs Date of Pneumonia Vaccine: Oct 04, 2010 Seasonal Allergies Seasonal Allergies: Yes Surgeries History of Surgeries: Yes (SHOULDER, KNEE, CEA, LIPOMA) Surgeries: Hysterectomy, Orthopedic Respiratory History of Respiratory Disorde: Yes Respiratory Disorders: Asthma Cardiovascular History of Cardiac Disorders: Yes Cardiac Disorders: Deep Vein Thrombosis, Hypertension Neurological History of Neurological Disord: No 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 System 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 Genitourinary History of Genitourinary Disor: Yes Genitourinary Disorders: UTI-Chronic Gastrointestinal History of Gastrointestinal Di: Yes Gastrointestinal Disorders: Gastroesophageal Reflux, Liver Disease/Jaundice Musculoskeletal History of Musculoskeletal Dis: No Endocrine History of Endocrine Disorders: No Cancer History of Cancer: Yes Cancer: Bladder Psychosocial History of Psychiatric Problem: Yes Behavioral Health Disorders: Anxiety, Depression Suicide Risk Score: 0 Integumentary History of Skin or Integumenta: No Blood Transfusions History of Blood Disorders: No (4 DVT'S) Adverse Reaction to a Blood Tr: No Reviewed Nursing Assessment Reviewed/Agree w Nursing PMH: Yes Family Medical History Significant Family History: No Pertinent Family Hx Physical Exam Vital Signs Capillary Refill : General Appearance: WD/WN, no apparent distress Cardiovascular: regular rate, rhythm, no murmur Respiratory: lungs clear, normal breath sounds Shoulder: limited ROM (pain limited), pain (left shoulder throughout shoulder) , soft tissue tenderness Elbow/Forearm: no evidence of injury, normal ROM, Right, Left Hand: normal inspection, no evidence of injury, normal ROM, Right, Left Neurologic/Psychiatric: alert, oriented x 3 Skin: normal color, warm/dry Progress/Results/Core Measures Results/Orders My Orders Orders - ANNIE ALEXANDER MD Dilaudid Inj 1mg Once (06/19/17 13:52) Zofran Sl (06/19/17 13:52) Departure Impression Impression: Primary Impression: Postoperative pain Additional Impression: Unspecified injury of muscle(s) and tendon(s) of the rotator cuff of left shoulder, subsequent encounter Disposition: 01 HOME, SELF-CARE Condition: Improved Departure-Patient Inst. Referrals: LIA MONTES DO (PCP/Family) Primary Care Physician Patient Instructions: Shoulder Pain (DC) Add. Discharge Instructions: All discharge instructions reviewed with patient and/or family. Voiced understanding. Follow-up with your orthopedic doctor on Wednesday for recheck and further evaluation. Return for worse pain, fever, vomiting, weakness, breathing problems or other concerns as needed. Continue home medications as previously prescribed. ANNIE ALEXANDER MD Jun 19, 2017 13:59
[2017-06-19 14:08] VITALS: BP 145/78
== END 2017-06-19 14:08 | disposition home or self-care (01) ==
LOC: EDUNIT# 13:28 → ER 13:30
DX: G89.18 Other acute postprocedural pain (principal); S49.92XA Unspecified injury of left shoulder and upper arm, initial encounter; J45.909 Unspecified asthma, uncomplicated; I10 Essential (primary) hypertension; F41.9 Anxiety disorder, unspecified; F32.9 Major depressive disorder, single episode, unspecified; K21.9 Gastro-esophageal reflux disease without esophagitis; F17.210 Nicotine dependence, cigarettes, uncomplicated; Z87.440 Personal history of urinary (tract) infections; Z87.19 Personal history of other diseases of the digestive system; Z85.51 Personal history of malignant neoplasm of bladder; Z86.718 Personal history of other venous thrombosis and embolism; Z85.72 Personal history of non-Hodgkin lymphomas; Z79.01 Long term (current) use of anticoagulants; Z90.710 Acquired absence of both cervix and uterus; W20.8XXA Other cause of strike by thrown, projected or falling object, initial encounter
CPT/HCPCS: 96372; 99284

== ENCOUNTER 2017-07-04 14:22 | Emergency (ER) | payer MEDICARE ==
[~2017-07-04] VITALS: Ht 167.6 cm; Wt 108.9 kg
--- OUTSIDE RECORDS SUMMARY | 2017-07-04 14:28 | XMS REPORT | Clinical Summary ---
Author Author [facility] Organization [facility] Address Unknown Phone Unavailable Care Team Providers Care Drill Setup Operator Name Role Phone PCP Unavailable Source Comments Some departments are not documenting in the electronic medical record. 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
[2017-07-04] MEDS ORDERED: ONDANSETRON 4 MG (ZOFRAN) ORAL DISSOLVE TAB SL STA (15:33)
[2017-07-04] MEDS ORDERED: morphine INJ 10 MG/ML 1ML (SYR OR VIAL) IM STA (15:33)
--- NOTE | 2017-07-04 15:33 | ED Upper Extremity ---
General Chief Complaint: Upper Extremity Stated Complaint: POST OP/L SHOULDER PAIN Nursing Triage Note: c/o left shoulder pain. Denies acute injury. Hx of repeat rotator cuff repair Nursing Sepsis Screen: No Definite Risk Source: patient Exam Limitations: no limitations History of Present Illness Time seen by provider: 15:16 Initial Comments 57-year-old female patient presents to the emergency department complains of left shoulder pain. Denies any recent injury. Patient had left repeat rotator cuff repair approximately 6 weeks ago. Was seen here on June 15 with similar complaints. Onset: other Pain/Injury Location: left shoulder Method of Injury: other (denies known recent injury) Allergies and Home Medications Allergies Coded Allergies: Penicillins (Verified Allergy, Unknown, 06/20/16) cefaclor (Verified Allergy, Unknown, 06/20/16) hydroxyzine (Verified Allergy, Unknown, 06/20/16) prochlorperazine (Verified Allergy, Unknown, 06/20/16) sulfamethoxazole (Verified Allergy, Unknown, 06/20/16) trimethoprim (Verified Allergy, Unknown, 06/20/16) Home Medications Carvedilol 12.5 Mg Tablet, 12.5 MG PO BID, (Reported) Hydrochlorothiazide 25 Mg Tablet, 25 MG PO DAILY, (Reported) Nitrofurantoin Monohyd/M-Cryst 100 Mg Capsule, 1 TAB PO BID for 10 Days Prescribed by: JD SNOW on 02/28/17 2309 Oxycodone HCl/Acetaminophen 1 Each Tablet, 1 EACH PO, (Reported) Rivaroxaban 15 Mg Tablet, 15 MG PO BID, #42 (Reported) Constitutional: no symptoms reported Respiratory: No cough, No dyspnea on exertion, No short of breath Cardiovascular: No chest pain, No edema, No palpitations Gastrointestinal: No abdominal pain, No constipation, No diarrhea, nausea, No vomiting Musculoskeletal: see HPI Skin: No change in color, No lesions, No lumps Psychiatric/Neurological: No Symptoms Reported All Other Systems Reviewed Negative Unless Noted: Yes (Negative excepted noted.) Past Rtsqits-Txdbzn-Vaotpq Hx Patient Social History Alcohol Use: Occasionally Uses Number of Drinks Today: AA Alcohol Beverage of Choice: Beer Recreational Drug Use: No Smoking Status: Current Everyday Smoker Type Used: Cigarettes 2nd Hand Smoke Exposure: Yes Recent Foreign Travel: No Contact w/Someone Who Travel: No Recent Infectious Disease Expo: No Recent Hopitalizations: No Immunizations Up To Date Tetanus Booster (TDap): Less than 5yrs Date of Pneumonia Vaccine: Oct 04, 2010 Seasonal Allergies Seasonal Allergies: Yes Surgeries History of Surgeries: Yes (SHOULDER, KNEE, CEA, LIPOMA) Surgeries: Hysterectomy, Orthopedic Respiratory History of Respiratory Disorde: Yes Respiratory Disorders: Asthma Cardiovascular History of Cardiac Disorders: Yes Cardiac Disorders: Deep Vein Thrombosis, Hypertension Neurological History of Neurological Disord: No 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 System 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 Disorders: 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 Genitourinary History of Genitourinary Disor: Yes Genitourinary Disorders: UTI-Chronic Gastrointestinal History of Gastrointestinal Di: Yes Gastrointestinal Disorders: Gastroesophageal Reflux, Liver Disease/Jaundice Musculoskeletal History of Musculoskeletal Dis: No Endocrine History of Endocrine Disorders: No Cancer History of Cancer: Yes Cancer: Bladder Psychosocial History of Psychiatric Problem: Yes Behavioral Health Disorders: Anxiety, Depression Integumentary History of Skin or Integumenta: No Blood Transfusions History of Blood Disorders: No (4 DVT'S) Adverse Reaction to a Blood Tr: No Reviewed Nursing Assessment Reviewed/Agree w Nursing PMH: Yes Family Medical History Significant Family History: No Pertinent Family Hx Physical Exam Vital Signs Vital Sign - Last 12Hours 07/04/17 14:56 Temp 97.8 Pulse 70 Resp 16 B/P (MAP) 180/84 Pulse Ox 98 O2 Delivery Room Air Capillary Refill : Less Than 3 Seconds General Appearance: WD/WN, no apparent distress Neck: non-tender, full range of motion, supple, normal inspection Cardiovascular: normal peripheral pulses, regular rate, rhythm, no edema, no murmur Respiratory: chest non-tender, lungs clear, normal breath sounds, no respiratory distress, no accessory muscle use Back: normal inspection, no vertebral tenderness Shoulder: bone tenderness (left shoulder generalized tenderness), No ecchymosis , limited ROM (left shoulder), soft tissue tenderness (left shoulder generalized tenderness), No swelling Elbow/Forearm: normal inspection, non-tender, no evidence of injury, normal ROM , Left Wrist: Yes normal inspection, Yes non-tender, Yes no evidence of injury, Yes normal ROM Hand: normal inspection, non-tender, no evidence of injury, normal ROM, Left Neurologic/Tendon: normal sensation, normal motor functions, normal tendon functions, responds to pain, no evidence tendon injury Neurologic/Psychiatric: no motor/sensory deficits, alert, normal mood/affect, oriented x 3 Skin: normal color, warm/dry Progress/Results/Core Measures Results/Orders My Orders Orders - TINO MURPHY Morphine Injection (Morphine Injection (07/04/17 15:33) Ondansetron Oral Dissolve Tab (Zofran (07/04/17 15:33) Vital Signs/I&O Vital Sign - Last 12Hours 07/04/17 07/04/17 14:56 15:40 Temp 97.8 97.8 Pulse 70 Resp 16 B/P (MAP) 180/84 Pulse Ox 98 O2 Delivery Room Air Blood Pressure Mean: 116 Departure Communication (Admissions) Progress Notes Patient to evaluate. Will give 1 dose of morphine IM in the emergency department. Patient also given zofran x1 dose for nausea. Discharge to home. Impression Impression: Primary Impression: Shoulder pain, left Qualified Codes: M25.512 - Pain in left shoulder; G89.29 - Other chronic pain Disposition: HOME, SELF-CARE Condition: Improved Departure-Patient Inst. Decision time for Depature: 15:32 Referrals: LIA MONTES DO (PCP/Family) Primary Care Physician Patient Instructions: MANAGING YOUR CHRONIC PAIN Add. Discharge Instructions: All discharge instructions reviewed with patient and/or family. Voiced understanding. Continue usual home medications. Continue all instructions by your orthopedic surgeon. Follow-up with your orthopedic surgeon tomorrow as previously scheduled. Return in the emergency department for worsened symptoms or any other concerns. TINO MURPHY Jul 04, 2017 15:32
[2017-07-04 15:50] VITALS: BP 172/80
== END 2017-07-04 15:50 | disposition home or self-care (01) ==
LOC: EDUNIT# 14:22 → ER 14:25
DX: G89.18 Other acute postprocedural pain (principal); M25.512 Pain in left shoulder; J45.909 Unspecified asthma, uncomplicated; I10 Essential (primary) hypertension; F41.9 Anxiety disorder, unspecified; F32.9 Major depressive disorder, single episode, unspecified; K21.9 Gastro-esophageal reflux disease without esophagitis; F17.210 Nicotine dependence, cigarettes, uncomplicated; Z90.710 Acquired absence of both cervix and uterus; Z85.51 Personal history of malignant neoplasm of bladder; Z86.718 Personal history of other venous thrombosis and embolism; Z87.440 Personal history of urinary (tract) infections; Z87.19 Personal history of other diseases of the digestive system; Z98.890 Other specified postprocedural states; Z79.01 Long term (current) use of anticoagulants
CPT/HCPCS: 96372; 99284

== ENCOUNTER 2017-07-16 17:43 | Emergency (ER) | payer MEDICARE ==
[~2017-07-16] VITALS: Ht 167.6 cm; Wt 108.9 kg
--- NOTE | 2017-07-16 18:20 | ED Fall/Injury ---
General Chief Complaint: Trauma-Non Activation Stated Complaint: FALL Nursing Triage Note: States having left shoulder surgery 5 weeks ago. Went to sit in metal chair and it folded in half. Pt hit left shoulder and C/O mid back pain. No bruising noted Source: patient Exam Limitations: no limitations History of Present Illness Time seen by provider: 18:18 Initial Comments Patient attempted to sit down in a metal chair earlier today. The chair collapsed and she fell the floor. She landed on her left shoulder and has pain to that area now. She had a rotator cuff surgery 5 weeks ago. She also complains of midline low back pain. Arrives to ER per ambulance and received 50 g of fentanyl in route. Upon my entrance into the room she states "now can I have some real pain medicine!?" Occurred: just prior to arrival Severity: moderate Associated Symptoms (Fall): Nausea/Vomiting (from the pain she states) Allergies and Home Medications Allergies Coded Allergies: Penicillins (Verified Allergy, Unknown, 07/16/17) cefaclor (Verified Allergy, Unknown, 06/20/16) hydroxyzine (Verified Allergy, Unknown, 06/20/16) prochlorperazine (Verified Allergy, Unknown, 06/20/16) sulfamethoxazole (Verified Allergy, Unknown, 06/20/16) trimethoprim (Verified Allergy, Unknown, 06/20/16) Home Medications Carvedilol 12.5 Mg Tablet, 12.5 MG PO BID, (Reported) Hydrochlorothiazide 25 Mg Tablet, 25 MG PO DAILY, (Reported) Hydrocodone/Acetaminophen 1 Each Tablet, 1 EACH PO Q4H PRN for PAIN-SEVERE, #10 Prescribed by: JOCELYNE REINA on 07/16/17 1858 Nitrofurantoin Monohyd/M-Cryst 100 Mg Capsule, 1 TAB PO BID for 10 Days Prescribed by: JD SNOW on 02/28/17 2309 Oxycodone HCl/Acetaminophen 1 Each Tablet, 1 EACH PO, (Reported) Rivaroxaban 15 Mg Tablet, 15 MG PO BID, #42 (Reported) Constitutional: see HPI Eyes: No Symptoms Reported Ears, Nose, Mouth, Throat: no symptoms reported Respiratory: no symptoms reported Cardiovascular: no symptoms reported Genitourinary: no symptoms reported Musculoskeletal: see HPI, back pain, joint pain Skin: no symptoms reported Psychiatric/Neurological: No Symptoms Reported Past Rvesmoh-Kxulpv-Vtavji Hx Patient Social History Alcohol Use: Denies Use Number of Drinks Today: AA Alcohol Beverage of Choice: Beer Recreational Drug Use: No Smoking Status: Current Everyday Smoker Type Used: Cigarettes 2nd Hand Smoke Exposure: Yes Recent Foreign Travel: No Contact w/Someone Who Travel: No Recent Infectious Disease Expo: No Recent Hopitalizations: Yes ([employer]FT [employer]OT. 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 Genitourinary History of Genitourinary Disor: Yes Genitourinary Disorders: UTI-Chronic Gastrointestinal History of Gastrointestinal Di: Yes Gastrointestinal Disorders: Gastroesophageal Reflux, Liver Disease/Jaundice Musculoskeletal History of Musculoskeletal Dis: No Endocrine History of Endocrine Disorders: No Cancer History of Cancer: Yes Cancer: Bladder Psychosocial History of Psychiatric Problem: Yes Behavioral Health Disorders: Anxiety, Depression Suicide Risk Score: 0 Integumentary History of Skin or Integumenta: No Blood Transfusions History of Blood Disorders: No (4 DVT'S) Adverse Reaction to a Blood Tr: No Family Medical History Significant Family History: No Pertinent Family Hx Physical Exam Vital Signs Vital Sign - Last 12Hours Capillary Refill : Less Than 3 Seconds General Appearance: WD/WN, no apparent distress HEENT: PERRL/EOMI, normal ENT inspection Neck: non-tender, full range of motion Cardiovascular: regular rate, rhythm, no murmur Respiratory: normal breath sounds, no respiratory distress, no accessory muscle use Gastrointestinal: normal bowel sounds, non tender, soft Extremities: normal inspection, other (tenderness to the left shoulder but without swelling deformity or ecchymosis abrasion or erythema. Same for the back, there is tenderness to palpation of midline upper lumbar spine but there is no abrasion erythema or ecchymosis.) Neurologic/Psychiatric: alert, normal mood/affect, oriented x 3 Skin: normal color, warm/dry Liz Coma Score Best Eye Response: (4) Open Spontaneously Best Verbal Response: (5) Oriented Best Motor Response: (6) Obeys Commands [place] Total: 15 Progress/Results/Core Measures Results/Orders My Orders Orders - JOCELYNE REINA APRN Ct Lumbar Spine Wo (07/16/17 18:17) Shoulder, Left, 3 Views (07/16/17 18:17) Ketorolac Injection (Toradol Injection) (07/16/17 18:30) Orphenadrine Injection (Norflex Injectio (07/16/17 18:30) Ondansetron Injection (Zofran Injectio (07/16/17 18:30) Morphine Injection (Morphine Injection (07/16/17 19:15) Medications Given in ED Current Medications Medications Dose Ordered Sig/Jeanne Route Start Time Stop Time Status Last Admin Dose Admin Ketorolac Tromethamine 30 mg ONCE ONCE IVP 07/16/17 18:30 07/16/17 18:31 DC 07/16/17 18:26 30 MG Ondansetron HCl 4 mg ONCE ONCE IVP 07/16/17 18:30 07/16/17 18:31 DC 07/16/17 18:27 4 MG Orphenadrine Citrate 60 mg ONCE ONCE IV 07/16/17 18:30 07/16/17 18:31 DC 07/16/17 18:26 60 MG Vital Signs/I&O Vital Sign - Last 12Hours 07/16/17 07/16/17 17:52 17:52 Pulse 103 103 Resp 18 18 B/P (MAP) 132/103 132/103 (113) Pulse Ox 93 93 Blood Pressure Mean: 113 Diagnostic Imaging Diagonstic Imaging: Xray Comments NAME: REID SOLIMANWONG Herrera MED REC#: [id number] PT STATUS: REG ER : 1960 PHYSICIAN: JOCELYNE REINA APRN ADMIT DATE: 07/16/17/ER Draft Date of Exam:07/16/17 SHOULDER, LEFT, 3 VIEWS INDICATION: Fall out of chair with injury to left shoulder. History of rotator cuff surgery 5 weeks prior. Unable to move left arm. TECHNIQUE: Three views of the left shoulder CORRELATION STUDY: 05/21/2017 FINDINGS: There is what appears to be a somewhat impacted fracture centered at the level of the greater tuberosity. There is inward displacement of the fracture fragments. A few fracture fragments also appear to be displaced posteriorly. The glenohumeral alignment appears to be generally maintained. There is asymmetry at the level of the acromioclavicular joint, may be owing to recent surgical changes with perhaps acromioplasty. IMPRESSION: 1. Findings consistent with predominantly impacted fracture centered at the level of the greater tuberosity of the humeral head. 2. Abnormal widening at the left acromioclavicular joint. This could be owing to perhaps recent surgery with acromioplasty with possibility of acute ligamentous injury not excluded. 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 TECHNIQUE: Multiple contiguous axial images were obtained through the lumbar spine without the use of intravenous contrast. Sagittal and coronal reformations were then performed. INDICATION: Back pain, fall. COMPARISON: None. FINDINGS: Alignment is normal. There is no subluxation or fracture. No osseous lesion identified. There is some minimal diffuse degenerative disc disease and facet joint arthropathy. No paraspinous mass, fluid or hematoma is identified. IMPRESSION: No traumatic malalignment or fracture. Dictated on workstation # [id number] Dict: 07/16/171840 Trans: 07/16/171852 ABHAY [id number] Interpreted by: JALEEL ALATORRE Electronically signed by: Impression Impression: Primary Impression: Fall at home Additional Impression: Shoulder fracture, left Disposition: 01 HOME, SELF-CARE Condition: Stable Departure-Patient Inst. Decision time for Depature: 18:57 Referrals: LIA MONTES DO (PCP/Family) Primary Care Physician Patient Instructions: Preventing Falls, Shoulder Sprain Add. Discharge Instructions: 1. Take your medication as directed 2. Follow-up with your doctor later this week After the prescribed pain medication runs out use Tylenol and Motrin. All discharge instructions reviewed with patient and/or family. Voiced understanding. Scripts Naproxen (Naproxen) 500 Mg Tablet. 500 MG PO BID Y for PAIN-MODERATE TO SEVERE, #20 TAB Prov: JOCELYNE REINA APRN 07/16/17 Hydrocodone/Acetaminophen ([place] 7.5-325 Tablet) 1 Each Tablet 1 EACH PO Q4H Y for PAIN-SEVERE, #42 TAB Prov: JOCELYNE REINA APRN 07/16/17 JOCELYNE REINA APRN Jul 16, 2017 18:20
[2017-07-16] MEDS ORDERED: ORPHENADRINE 60 MG/2 ML (NORFLEX) AMP IV ONE (18:30)
[2017-07-16] MEDS ORDERED: ONDANSETRON 4 MG/2 ML (SDV) Z0FRAN IVP ONE (18:30)
[2017-07-16] MEDS ORDERED: KETOROLAC 30 MG/ML VIAL IVP ONE (18:30)
--- NOTE | 2017-07-16 18:53 | Diagnostic Imaging Report ---
PROCEDURE: CT lumbar spine without contrast. TECHNIQUE: Multiple contiguous axial images were obtained through the lumbar spine without the use of intravenous contrast. Sagittal and coronal reformations were then performed. INDICATION: Back pain, fall. COMPARISON: None. FINDINGS: Alignment is normal. There is no subluxation or fracture. No osseous lesion identified. There is some minimal diffuse degenerative disc disease and facet joint arthropathy. No paraspinous mass, fluid or hematoma is identified. IMPRESSION: No traumatic malalignment or fracture. Dictated by: Dictated on workstation # [id number]
--- NOTE | 2017-07-16 18:57 | Diagnostic Imaging Report ---
INDICATION: Fall out of chair with injury to left shoulder. History of rotator cuff surgery 5 weeks prior. Unable to move left arm. TECHNIQUE: Three views of the left shoulder CORRELATION STUDY: 05/21/2017 FINDINGS: There is what appears to be a somewhat impacted fracture centered at the level of the greater tuberosity. There is inward displacement of the fracture fragments. A few fracture fragments also appear to be displaced posteriorly. The glenohumeral alignment appears to be generally maintained. There is asymmetry at the level of the acromioclavicular joint, may be owing to recent surgical changes with perhaps acromioplasty. IMPRESSION: 1. Findings consistent with predominantly impacted fracture centered at the level of the greater tuberosity of the humeral head. 2. Abnormal widening at the left acromioclavicular joint. This could be owing to perhaps recent surgery with acromioplasty with possibility of acute ligamentous injury not excluded. Dictated by: Dictated on workstation # [id number]
[2017-07-16] MEDS ORDERED: HYDR-757 PO (18:58)
[2017-07-16] MEDS ORDERED: NAPR500T8 PO (19:13)
[2017-07-16] MEDS ORDERED: HYDR-756 PO (19:13)
[2017-07-16] MEDS ORDERED: morphine INJ 10 MG/ML 1ML (SYR OR VIAL) IVP ONE (19:15)
[2017-07-16 19:22] VITALS: BP 141/83
== END 2017-07-16 19:22 | disposition home or self-care (01) ==
LOC: EDUNIT# 17:43 → ER 17:44
DX: S42.452A Displaced fracture of lateral condyle of left humerus, initial encounter for closed fracture (principal); I10 Essential (primary) hypertension; J45.909 Unspecified asthma, uncomplicated; K21.9 Gastro-esophageal reflux disease without esophagitis; F32.9 Major depressive disorder, single episode, unspecified; F41.9 Anxiety disorder, unspecified; F17.210 Nicotine dependence, cigarettes, uncomplicated; Z87.440 Personal history of urinary (tract) infections; Z87.19 Personal history of other diseases of the digestive system; Z85.51 Personal history of malignant neoplasm of bladder; Z79.01 Long term (current) use of anticoagulants; Z90.710 Acquired absence of both cervix and uterus; Z86.718 Personal history of other venous thrombosis and embolism; W07.XXXA Fall from chair, initial encounter; Y92.009 Unspecified place in unspecified non-institutional (private) residence as the place of occurrence of the external cause
CPT/HCPCS: 72131; 73030; 99283

== ENCOUNTER 2017-07-23 18:09 | Emergency (ER) | payer MEDICARE ==
[~2017-07-23] VITALS: Ht 167.6 cm; Wt 108.9 kg
[~2017-07-23 18:09] MED LIST changes: +HYDR-756 PO; +HYDR-757 PO; +NAPR500T8 PO
--- OUTSIDE RECORDS SUMMARY | 2017-07-23 18:15 | XMS REPORT | Clinical Summary ---
Author Author [facility] Organization [facility] Address Unknown Phone Unavailable Care Team Providers Care Workers Compensation Examiner Name Role Phone PCP Unavailable Source Comments Some departments are not documenting in the electronic medical record. 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 Pulse 70 12/06/2016 3:00 AM PROMOTIONAL ADVERTISING ASSISTANT Temperature 36.7 C (98.1 F) 12/06/2016 1:37 AM PROMOTIONAL ADVERTISING ASSISTANT Respiratory Rate - - Oxygen Saturation 94% 12/06/2016 6:14 AM PROMOTIONAL ADVERTISING ASSISTANT Inhaled Oxygen - - Concentration Weight 108.9 kg (240 lb) 12/06/2016 1:37 AM PROMOTIONAL ADVERTISING ASSISTANT Height 167.6 cm (5' 6") 06/08/2013 10:52 AM CDT Body Mass Index 38.74 12/06/2016 1:37 AM PROMOTIONAL ADVERTISING ASSISTANT Plan of Treatment Health Maintenance Due Date Last Done Comments HEPATITIS C SCREENING 1959 PHYSICAL (COMPREHENSIVE) 1966 EXAM PERTUSSIS VACCINE 1970 TETANUS VACCINE 1976 DILATED EYE EXAM 1977 FOOT EXAM 1977 HBA1C 1977 MICROALBUMIN 1977 PNEUMONIA VACCINE (DM) 1977 CERVICAL CANCER SCREENING 1989 BREAST CANCER SCREENING 1999 COLORECTAL CANCER 2009 SCREENING INFLUENZA VACCINE 05/04/2017 Results Not on filefrom Last 3 Months
[2017-07-23] MEDS ORDERED: LORA1TAB (19:14)
--- NOTE | 2017-07-23 19:45 | ED General ---
General Chief Complaint: Upper Extremity Stated Complaint: L SHOULDER PAIN Nursing Triage Note: c/o L shoulder pain, patient reports having surgery 6 weeks ago on shoulder and falling 1 week ago. patient reports she had been taking oxycodone for pain but ran out of that yesterday Nursing Sepsis Screen: No Definite Risk Source of Information: Patient Exam Limitations: No Limitations History of Present Illness Time Seen by Provider: 19:44 Allergies and Home Medications Allergies Coded Allergies: Penicillins (Verified Allergy, Unknown, 07/16/17) cefaclor (Verified Allergy, Unknown, 06/20/16) hydroxyzine (Verified Allergy, Unknown, 06/20/16) prochlorperazine (Verified Allergy, Unknown, 06/20/16) sulfamethoxazole (Verified Allergy, Unknown, 06/20/16) trimethoprim (Verified Allergy, Unknown, 06/20/16) Home Medications Carvedilol 12.5 Mg Tablet, 12.5 MG PO BID, (Reported) Hydrochlorothiazide 25 Mg Tablet, 25 MG PO DAILY, (Reported) Lorazepam 1 Mg Tablet, (Reported) Naproxen 500 Mg Tablet.dr, 500 MG PO BID PRN for PAIN-MODERATE TO SEVERE, #20 Prescribed by: JOCELYNE REINA on 07/16/17 1913 Nitrofurantoin Monohyd/M-Cryst 100 Mg Capsule, 1 TAB PO BID for 10 Days Prescribed by: JD SNOW on 02/28/17 2309 Rivaroxaban 15 Mg Tablet, 15 MG PO BID, #42 (Reported) Past Yaedqll-Fledow-Jihehj Hx Patient Social History Alcohol Use: Denies Use Number of Drinks Today: AA Alcohol Beverage of Choice: Beer Recreational Drug Use: No Type Used: Cigarettes 2nd Hand Smoke Exposure: Yes Recent Foreign Travel: No Contact w/Someone Who Travel: No Recent Infectious Disease Expo: No Recent Hopitalizations: No Physical Abuse: No Sexual Abuse: No Immunizations Up To Date Tetanus Booster (TDap): Less than 5yrs Date of Pneumonia Vaccine: Oct 04, 2010 Seasonal Allergies Seasonal Allergies: Yes Surgeries History of Surgeries: Yes (SHOULDER, KNEE, CEA, LIPOMA) Surgeries: Hysterectomy, Orthopedic Respiratory History of Respiratory Disorde: Yes Respiratory Disorders: Asthma Cardiovascular History of Cardiac Disorders: Yes Cardiac Disorders: Deep Vein Thrombosis, Hypertension Neurological History of Neurological Disord: No 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 System 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 Genitourinary History of Genitourinary Disor: Yes Genitourinary Disorders: UTI-Chronic Gastrointestinal History of Gastrointestinal Di: Yes Gastrointestinal Disorders: Gastroesophageal Reflux, Liver Disease/Jaundice Musculoskeletal History of Musculoskeletal Dis: No Endocrine History of Endocrine Disorders: No Cancer History of Cancer: Yes Cancer: Bladder Psychosocial History of Psychiatric Problem: Yes Behavioral Health Disorders: Anxiety, Depression Suicide Risk Score: 0 Integumentary History of Skin or Integumenta: No Blood Transfusions History of Blood Disorders: No (4 DVT'S) Adverse Reaction to a Blood Tr: No Family Medical History Significant Family History: No Pertinent Family Hx Physical Exam Vital Signs Vital Sign - Last 12Hours 07/23/17 19:10 Temp 97.2 Pulse 110 Resp 18 B/P (MAP) 146/98 Pulse Ox 99 Capillary Refill : Less Than 3 Seconds Progress/Results/Core Measures Results/Orders Vital Signs/I&O Vital Sign - Last 12Hours 07/23/17 19:10 Temp 97.2 Pulse 110 Resp 18 B/P (MAP) 146/98 Pulse Ox 99 Blood Pressure Mean: 114 Departure Impression Impression: Primary Impression: Shoulder pain, left Additional Impression: Fracture of left shoulder Disposition: 01 HOME, SELF-CARE Condition: Improved Departure-Patient Inst. Decision time for Depature: 19:58 Referrals: LIA MONTES DO (PCP/Family) Primary Care Physician Patient Instructions: How to Use a Shoulder Sling Add. Discharge Instructions: All discharge instructions reviewed with patient and/or family. Voiced understanding. Continue usual home medications. Tylenol extra strength over- the-counter as directed for pain. Use the immobilizer or shoulder sling as instructed. Follow-up with Dr. James on Wednesday for recheck and all narcotic refills. Call first thing Wednesday morning for appointment time. Into the emergency department for worsened symptoms or any other concerns. TINO MURPHY Jul 23, 2017 19:44
[2017-07-23] MEDS ORDERED: oxyCODONE/APAP 5/325MG (PERCOCET 5) TABLET PO STA (19:57)
[2017-07-23 20:05] VITALS: BP 146/98
== END 2017-07-23 20:05 | disposition home or self-care (01) ==
LOC: EDUNIT# 18:09 → ER 18:10
DX: S42.92XD Fracture of left shoulder girdle, part unspecified, subsequent encounter for fracture with routine healing (principal); J45.909 Unspecified asthma, uncomplicated; I10 Essential (primary) hypertension; F32.9 Major depressive disorder, single episode, unspecified; F41.9 Anxiety disorder, unspecified; K21.9 Gastro-esophageal reflux disease without esophagitis; Z87.440 Personal history of urinary (tract) infections; Z87.19 Personal history of other diseases of the digestive system; Z85.51 Personal history of malignant neoplasm of bladder; Z86.718 Personal history of other venous thrombosis and embolism; Z77.22 Contact with and (suspected) exposure to environmental tobacco smoke (acute) (chronic); Z90.710 Acquired absence of both cervix and uterus; W19.XXXD Unspecified fall, subsequent encounter
CPT/HCPCS: 99283

== ENCOUNTER 2017-09-19 15:06 | Emergency (ER) | payer MEDICARE, MEDICAID ==
[~2017-09-19] VITALS: Ht 167.6 cm; Wt 103.0 kg
[~2017-09-19 15:06] MED LIST changes: +LORA1TAB
[2017-09-19] MEDS ORDERED: KETOROLAC 60 MG/2 ML VIAL IM ONE (15:45)
[2017-09-19] MEDS ORDERED: OMEP20TA33 PO (15:48)
[2017-09-19] MEDS ORDERED: GABA-488 PO (15:48)
[2017-09-19] MEDS ORDERED: TRAZ100T92 PO (15:48)
[2017-09-19] MEDS ORDERED: ONDA4TAB8 PO (15:48)
[2017-09-19] MEDS ORDERED: APIX5TAB PO (15:48)
--- NOTE | 2017-09-19 15:55 | ED Upper Extremity ---
General Chief Complaint: Upper Extremity Stated Complaint: POST OP/L SHOULDER SWELLING Nursing Triage Note: PT TO ROOM 6 PER W/C PT STATES HAS SWELLING IN L ARM. PT CONCERNED ABOUT SWELLING. HAD L SHOULDER REPLACEMENT ON WEDNESDAY OF LAST WEEK. Nursing Sepsis Screen: No Definite Risk Source: patient, family History of Present Illness Time seen by provider: 15:50 Initial Comments This 57-year-old white female presents complaining of pain in her left shoulder. Patient had the left shoulder replacement surgery approximately a week ago. Patient has noted increasing pain to the area precipitating her presentation to emergency department tonight. Patient also has noted some swelling of the left arm. She is on Eliquis however for previous thrombophlebitis. Patient denies paresthesia or weakness in left upper extremity. Allergies and Home Medications Allergies Coded Allergies: Penicillins (Verified Allergy, Unknown, 07/16/17) cefaclor (Verified Allergy, Unknown, 06/20/16) hydroxyzine (Verified Allergy, Unknown, 06/20/16) prochlorperazine (Verified Allergy, Unknown, 06/20/16) sulfamethoxazole (Verified Allergy, Unknown, 06/20/16) trimethoprim (Verified Allergy, Unknown, 06/20/16) Home Medications Apixaban 5 Mg Tablet, 5 MG PO BID, (Reported) Carvedilol 12.5 Mg Tablet, 12.5 MG PO BID, (Reported) Gabapentin 300 Mg Capsule, Unknown Dose PO, (Reported) Nitrofurantoin Monohyd/M-Cryst 100 Mg Capsule, 1 TAB PO BID for 10 Days Prescribed by: JD SNOW on 02/28/17 1705 Omeprazole Magnesium 20 Mg Tablet.dr, 40 MG PO DAILY, (Reported) Ondansetron 4 Mg Tab.rapdis, 4 MG PO Q4H PRN for NAUSEA/VOMITING-1ST LINE, ( Reported) Trazodone HCl 100 Mg Tablet, 100 MG PO, (Reported) Constitutional: No chills, No fever EENTM: No ear discharge, No dental problems Respiratory: No cough, No short of breath Cardiovascular: No chest pain Gastrointestinal: No abdominal pain, No nausea, No vomiting Genitourinary: no symptoms reported : No Musculoskeletal: see HPI, joint pain (left shoulder) Skin: No change in color, No rash Psychiatric/Neurological: No Symptoms Reported Past Wvrojhr-Mqoqxo-Arwghf Hx Patient Social History Alcohol Use: Rarely Uses Number of Drinks Today: AA Alcohol Beverage of Choice: Beer Recreational Drug Use: No Type Used: Cigarettes 2nd Hand Smoke Exposure: Yes Recent Foreign Travel: No Contact w/Someone Who Travel: No Recent Infectious Disease Expo: No Recent Hopitalizations: Yes (SHOULDER REPLACEMENT) Physical Abuse: No Sexual Abuse: No Immunizations Up To Date Tetanus Booster (TDap): Less than 5yrs Date of Pneumonia Vaccine: Oct 04, 2010 Seasonal Allergies Seasonal Allergies: Yes Surgeries History of Surgeries: Yes (SHOULDER, KNEE, CEA, LIPOMA) Surgeries: Hysterectomy, Orthopedic Respiratory History of Respiratory Disorde: Yes Respiratory Disorders: Asthma Cardiovascular History of Cardiac Disorders: Yes Cardiac Disorders: Deep Vein Thrombosis, Hypertension Neurological History of Neurological Disord: No 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 System 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 Genitourinary History of Genitourinary Disor: Yes Genitourinary Disorders: UTI-Chronic Gastrointestinal History of Gastrointestinal Di: Yes Gastrointestinal Disorders: Gastroesophageal Reflux, Liver Disease/Jaundice Musculoskeletal History of Musculoskeletal Dis: No Endocrine History of Endocrine Disorders: No Cancer History of Cancer: Yes Cancer: Bladder Psychosocial History of Psychiatric Problem: Yes Behavioral Health Disorders: Anxiety, Depression Suicide Risk Score: 0 Integumentary History of Skin or Integumenta: No Blood Transfusions History of Blood Disorders: No (4 DVT'S) Adverse Reaction to a Blood Tr: No Reviewed Nursing Assessment Reviewed/Agree w Nursing PMH: Yes Family Medical History Significant Family History: No Pertinent Family Hx Physical Exam Vital Signs Vital Sign - Last 12Hours 09/19/ 15:15 Temp 97.2 Pulse 85 Resp 18 B/P (MAP) 152/110 (124) Pulse Ox 95 Capillary Refill : Less Than 3 Seconds General Appearance: WD/WN, no apparent distress HEENT: normal ENT inspection Neck: normal inspection Cardiovascular: regular rate, rhythm Respiratory: lungs clear, normal breath sounds, no respiratory distress Gastrointestinal: normal bowel sounds, soft Back: normal inspection Shoulder: swelling (there is slight swelling of the left upper extremity. There is tenderness to palpation over the left shoulder. No crepitus or instability was noted) Elbow/Forearm: normal inspection, non-tender Wrist: Yes normal inspection, Yes non-tender Hand: normal inspection, non-tender Neurologic/Tendon: normal sensation, normal motor functions Neurologic/Psychiatric: no motor/sensory deficits, alert Skin: normal color, warm/dry Progress/Results/Core Measures Results/Orders My Orders Orders - GURPREET LEAL MD Ketorolac Injection (Toradol Injection) (09/19/17 15:45) Vital Signs/I&O Vital Sign - Last 12Hours 09/19/17 15:15 Temp 97.2 Pulse 85 Resp 18 B/P (MAP) 152/110 (124) Pulse Ox 95 Blood Pressure Mean: 124 Progress Note : Time: 15:53 Progress Note Patient received 60 mg Toradol IM. Prescription for oral Toradol as prescribed. Patient is on our state wide pharmacy monitoring system and we were reluctant to give the patient strong narcotics. Departure Impression Impression: Primary Impression: Shoulder pain, left Qualified Codes: M25.512 - Pain in left shoulder Disposition: 01 HOME, SELF-CARE Condition: Improved Departure-Patient Inst. Decision time for Depature: 15:55 Referrals: LIA MONTES DO (PCP/Family) Primary Care Physician Patient Instructions: Managing Pain After Surgery, Postoperative Pain (DC) Add. Discharge Instructions: Toradol for pain. Close follow here surgeon on Wednesday. Return if any problems. All discharge instructions reviewed with patient and/or family. Voiced understanding. GURPREET LEAL MD Sep 19, 2017 15:55
[2017-09-19 16:00] VITALS: BP 152/110
== END 2017-09-19 16:00 | disposition home or self-care (01) ==
LOC: EDUNIT# 15:06 → ER 15:07
DX: M25.512 Pain in left shoulder (principal); G89.18 Other acute postprocedural pain; J45.909 Unspecified asthma, uncomplicated; I10 Essential (primary) hypertension; K21.9 Gastro-esophageal reflux disease without esophagitis; F41.9 Anxiety disorder, unspecified; F32.9 Major depressive disorder, single episode, unspecified; Z85.51 Personal history of malignant neoplasm of bladder; Z86.718 Personal history of other venous thrombosis and embolism; Z87.19 Personal history of other diseases of the digestive system; Z79.01 Long term (current) use of anticoagulants; Z96.612 Presence of left artificial shoulder joint; Z90.710 Acquired absence of both cervix and uterus
CPT/HCPCS: 99282; 99284

== ENCOUNTER 2017-11-20 07:12 | Emergency (ER) | payer MEDICARE, MEDICAID ==
[~2017-11-20] VITALS: Ht 167.6 cm; Wt 113.4 kg
[~2017-11-20 07:12] MED LIST changes: +APIX5TAB PO; +GABA-488 PO; +OMEP20TA33 PO; +ONDA4TAB8 PO; +TRAZ100T92 PO
[2017-11-20] MEDS ORDERED: LORazepam INJ 2 MG/ML (ATIVAN) VIAL ONE (07:15)
[2017-11-20] MEDS ORDERED: ROCURONIUM 50 MG/5 ML (ZEMURON) VIAL IV ONE (07:18)
[2017-11-20] MEDS ORDERED: LIDOCAINE BOLUS 100 MG/5 ML (IMS) SYR IV ONE (07:18)
[2017-11-20] MEDS ORDERED: MIDAZOLAM 5 MG/5 ML (VERSED) VIAL IV ONE (07:18)
[2017-11-20] MEDS ORDERED: fentaNYL INJECTION 100 MCG/2 ML AMP INJ ONE (07:18)
[2017-11-20] MEDS ORDERED: DEXTROSE 50% 50 ML (IMS) SYR IV ONE (07:18)
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
--- OUTSIDE RECORDS SUMMARY | 2017-11-20 07:25 | XMS REPORT | Summary of Care ---
Author Author [facility] Organization [facility] Address Unknown Phone Unavailable Care Team Providers Care Certified Professional Coder Name Role Phone Suzy Franks PCP Encounter PFM MARISELA [id number] Date(s): 03/30/16 - 03/30/16 [facility] [address] [id number] Discharge Disposition: Home Attending Physician: Janette Benton APRN Referring Physician: aJnette Benton APRN Vital Signs No data available for this section Problem List Condition Effective Dates Status Health Status Informant Anxiety(Confirmed) Active Asthma(Confirmed) Active DVT, lower Active extremity, recurrent(Confirmed) HIDRADENITIS(Confirm 10/10/13 Active ed) Hypertension(Confirm Active ed) Incontinence of Active Urine(Confirmed) Osteoarthritis(Confi Active rmed) Panic Active Attacks(Confirmed) Allergies, Adverse Reactions, Alerts Substance Reaction Severity Status Atarax Seizure Active Bactrim Hives Active Ceclor hives Active Compazine Seizure Active penicillin Anaphylactic shock, unspecified Active Medications Aleve 220 mg, Q8H, PO, 0 Number of Refills Start Date: 11/06/14 Status: Ordered aspirin 325 mg, Q24H, PO, 0 Number of Refills Start Date: 04/13/14 Status: Ordered Coreg 12.5 mg oral tablet 1 Tab, BID, PO, 60 Tab, 6 Number of Refills, 6, Route to Pharmacy Electronically , [place], [id number], TAB Start Date: 02/27/14 Status: Ordered Flonase 1 [place], NASAL, Maintenance, 04/20/14 8:25:40, 0 Number of Refills Start Date: 04/20/14 Status: Ordered hydrochlorothiazide 25 mg oral tablet 1 Tab, Q24H, PO, 30 Tab, 6 Number of Refills, 6, Route to Pharmacy Electronically, [place], [id number], TAB Start Date: 02/27/14 Status: Ordered Klonopin 1 mg oral tablet See Instructions, 1 Tab, take one tab night before surgery, 0 Number of Refills , 0, Instructions Replace Required Details Print Requisition, TAB Start Date: 02/27/14 Status: Ordered naproxen PO, 0 Number of Refills Start Date: 11/06/14 Status: Ordered Phenergan 50 mg oral tablet 1 Tab, Q6H, PO, 25 Tab, 04/02/16, PRN, 0 Number of Refills, 0, as needed for nausea/vomiting, Route to Pharmacy Electronically, [facility] 234, [id number] Start Date: 03/30/16 Stop Date: 04/02/16 Status: Ordered Prilosec 20 mg, Q24H, PO, PRN, 0 Number of Refills, Reflux Start Date: 04/13/14 Status: Ordered ProAir HFA 90 mcg/inh inhalation aerosol with adapter 2 Puff(s), QID, INH, 1 EA, Maintenance, 03/19/14 10:06:31, 3 Number of Refills, 3, Route to Pharmacy Electronically, [place], [id number] Start Date: 03/19/14 Status: Ordered Results No data available for this section Immunizations Given and Recorded Vaccine Date Status Refusal Reason diphtheria/pertussis, acel/tetanus Tdap 10/04/09 Given Procedures No data available for this section Social History No data available for this section Assessment and Plan No data available for this section
--- OUTSIDE RECORDS SUMMARY | 2017-11-20 07:26 | XMS REPORT | Summary of Care ---
Author Author [facility] Organization [facility] Address Unknown Phone Unavailable Care Team Providers Care Card Seller Name Role Phone Suzy Franks PCP Encounter PFM Date(s): 03/30/16 - 03/30/16 [facility] [address] [address] [phone] Discharge Diagnosis: Abnormal weight loss Discharge Diagnosis: Abdominal pain Discharge Disposition: Home Attending Physician: Janette Benton APRN Vital Signs No data available [...] 6, Route to Pharmacy Electronically , [place], [id number], TAB Start Date: 02/27/14 Status: Ordered Flonase 1 [place], NASAL, Maintenance, 04/20/14 8:25:40, 0 Number of Refills Start Date: 04/20/14 Status: Ordered hydrochlorothiazide 25 mg oral tablet 1 Tab, Q24H, PO, 30 Tab, 6 Number of Refills, 6, Route to Pharmacy Electronically, [place], [id number], TAB Start Date: 02/27/14 Status: Ordered Klonopin [...] needed for nausea/vomiting, Route to Pharmacy Electronically, [facility] 234, [id number] Start Date: 03/30/16 Stop Date: 04/02/16 Status: Ordered Prilosec 20 mg, Q24H, PO, PRN, 0 Number of Refills, Reflux Start Date: 04/13/14 Status: Ordered ProAir HFA 90 mcg/inh inhalation aerosol with adapter 2 Puff(s), QID, INH, 1 EA, Maintenance, 03/19/14 10:06:31, 3 Number of Refills, 3, Route to Pharmacy Electronically, [place], [id number] Start Date: 03/19/14 Status: Ordered Results No data available for this section Immunizations Given and Recorded Vaccine Date Status Refusal Reason diphtheria/pertussis, acel/tetanus Tdap 10/04/09 Given Procedures No data available for this section Social History No data available for this section Assessment and Plan No data available for this section
--- OUTSIDE RECORDS SUMMARY | 2017-11-20 07:26 | XMS REPORT | Clinical Summary ---
Author Author [facility] Organization [facility] Address Unknown Phone Unavailable Care Team Providers Care Tube Mill Operator Name Role Phone nAgelica Albrecht WRAPPING MACHINE HELPER Unavailable Davina Nicole WRAPPING MACHINE HELPER Unavailable RehanaLake bullard DO Unavailable No Pcp, Na PCP Unavailable Source Comments Some departments are not documenting in the electronic medical record. If you do not see the information that you expected, contact Release of Information in the Health Information Management department at [phone] for further assistance in locating additional records.[facility] Allergies Active Allergy Reactions Severity [...] Taken Blood Pressure 135/77 12/06/2016 6:14 AM BELLOWS CHARGER ASSEMBLER Pulse 70 12/06/2016 3:00 AM BELLOWS CHARGER ASSEMBLER Temperature 36.7 C (98.1 F) 12/06/2016 1:37 AM BELLOWS CHARGER ASSEMBLER Respiratory Rate - - Oxygen Saturation 94% 12/06/2016 6:14 AM BELLOWS CHARGER ASSEMBLER Inhaled Oxygen - - Concentration Weight 108.9 kg (240 lb) 12/06/2016 1:37 AM BELLOWS CHARGER ASSEMBLER Height 167.6 cm (5' 6") 06/08/2013 10:52 AM CDT Body Mass Index 38.74 12/06/2016 1:37 AM BELLOWS CHARGER ASSEMBLER Plan of Treatment Health Maintenance Due Date [...]
--- OUTSIDE RECORDS SUMMARY | 2017-11-20 07:26 | XMS REPORT | Summary of Care ---
Author Author [facility] Organization [facility] Address Unknown Phone Unavailable Care Team Providers Care Shoe Planner Name Role Phone Suzy Franks PCP Encounter PFM Date(s): 03/30/16 - 03/30/16 [facility] [address] [address] Discharge Disposition: Home Attending Physician: Janette Benton APRN Referring Physician: Janette Benton APRN Vital Signs No [...] 6, Route to Pharmacy Electronically , [place], [id number], TAB Start Date: 02/27/14 Status: Ordered Flonase 1 [place], NASAL, Maintenance, 04/20/14 8:25:40, 0 Number of Refills Start Date: 04/20/14 Status: Ordered hydrochlorothiazide 25 mg oral tablet 1 Tab, Q24H, PO, 30 Tab, 6 Number of Refills, 6, Route to Pharmacy Electronically, [place], [id number], TAB Start Date: 02/27/14 Status: Ordered Klonopin [...] needed for nausea/vomiting, Route to Pharmacy Electronically, [facility] 234, [id number] Start Date: 03/30/16 Stop Date: 04/02/16 Status: Ordered Prilosec 20 mg, Q24H, PO, PRN, 0 Number of Refills, Reflux Start Date: 04/13/14 Status: Ordered ProAir HFA 90 mcg/inh inhalation aerosol with adapter 2 Puff(s), QID, INH, 1 EA, Maintenance, 03/19/14 10:06:31, 3 Number of Refills, 3, Route to Pharmacy Electronically, [place], [id number] Start Date: 03/19/14 Status: Ordered Results No data available for this section Immunizations Given and Recorded Vaccine Date Status Refusal Reason diphtheria/pertussis, acel/tetanus Tdap 10/04/09 Given Procedures No data available for this section Social History No data available for this section Assessment and Plan No data available for this section
--- OUTSIDE RECORDS SUMMARY | 2017-11-20 07:26 | XMS REPORT ---
Author Organization Unknown Address Unknown Phone Unavailable Care Team Providers Care Traffic Ii Manager Name Role Phone Jean Parrish PCP Encounter [id number] Date(s): 08/05/14 - 08/05/14 [facility] [id number] [place] [address] [address] [place], [id number]- Discharge Diagnosis: Sprain of right thumb Attending Physician: Yoel Zazueta DO Vital Signs No data available for this section Problem List Condition Effective Dates Status Health Status Informant Chronic Active pain(Confirmed) COPD - Chronic Active obstructive pulmonary disease(Confirmed) DVT - Deep vein Active thrombosis(Confirmed ) Endometrial 1995 Active cancer(Confirmed) Hypercholesterolemia Active (Confirmed) Hypertension(Confirm Active ed) Osteomyelitis(Confir Active med)1 Tobacco Active patient user(Confirmed)2 1in ankle 2Added by Discern Expert based on Social History Documentation Allergies, Adverse Reactions, Alerts Substance Reaction Severity Status Bactrim Hives Active Ceclor Hives Active Compazine Dystonic reaction Active Dilaudid hives Active erythromycin Hives Active fentaNYL 50 mcg/mL Unknown cause Active injectable solution1 NSAIDs Hives Active penicillins Anaphylactic shock due to peanuts Active Tylenol elevated lft Active 1happened during surgery, was told not to take it by surgeon Medications No data available for this section Results No data available for this section Immunizations No data available for this section Procedures No data available for this section Social History No data available for this section Assessment and Plan No data available for this section
--- OUTSIDE RECORDS SUMMARY | 2017-11-20 07:26 | XMS REPORT | Summary of Care ---
Author Author [facility] Organization [facility] Address Unknown Phone Unavailable Care Team Providers Care Car Changer Name Role Phone Suzy Franks PCP Encounter PFM Date(s): 03/31/16 [facility] [address] [address] [facility] [phone] Discharge Diagnosis: Weight loss, abnormal Discharge Diagnosis: Change in bowel movement Discharge Diagnosis: Acid reflux Attending Physician: Darwin Connell, Vital Signs No data available for this [...] Active penicillin Anaphylactic shock, unspecified Active Medications Coreg 3.125 mg oral tablet 1 Tab, BID, PO, 60 Tab, 0 Number of Refills, TAB Start Date: 03/31/16 Status: Ordered hydrochlorothiazide 25 mg oral tablet 1 Tab, Q24H, PO, 30 Tab, 6 Number of Refills, 6, Route to Pharmacy Electronically, [facility], [id number], TAB Start Date: 03/31/16 Status: Ordered naproxen 500 mg oral tablet 1 Tab, BID, PO, 60 Tab, 0 Number of Refills, 0, Route to Pharmacy Electronically , [facility], [id number] Start Date: 03/31/16 Status: Ordered oxycodone 5 mg oral tablet 1 Tab, Q6H, PO, 30 Tab, 03/31/17, PRN, 0 Number of Refills, 0, for pain, Print Requisition, TAB Start Date: 03/31/16 Stop Date: 03/31/17 Status: Ordered Zanaflex 4 mg oral tablet 1 Tab, TID, PO, 30 Tab, 0 Number of Refills, 0, Route to Pharmacy Electronically , [facility], [id number] Start Date: 03/31/16 Status: Ordered Results No data available for this section Immunizations Given and Recorded Vaccine Date Status Refusal Reason diphtheria/pertussis, acel/tetanus Tdap 10/04/09 Given Procedures No data available for this section Social History No data available for this section Assessment and Plan No data available for this section
[2017-11-20] MEDS ORDERED: NOREPINEPHRINE 4 MG/4 ML (LEVOPHED) AMP IV ONE ×2 (07:46→07:51)
[2017-11-20] MEDS ORDERED: LACTATED RINGERS 1,000 ML IV ONE (07:46)
[2017-11-20] MEDS ORDERED: NS IV 1000 ML 1,000 ML ONE (07:49)
[2017-11-20] MEDS ORDERED: NS (IVPB) 250 ML ONE (07:51)
[2017-11-20 08:05] LABS: BASOPHILS % (AUTO) 0 % (0-10); EOSINOPHILS % (AUTO) 0 % (0-10); HEMATOCRIT 29 % (35-52); LYMPHOCYTES # (AUTO) 0.6 X 10^3 (1.0-4.0); LYMPHOCYTES % (AUTO) 3 % (12-44); MEAN CORPUSCULAR HEMOGLOBIN 31 PG (25-34); MEAN CORPUSCULAR HGB CONC 35 G/DL (32-36); MEAN CORPUSCULAR VOLUME 88 FL (80-99); MEAN PLATELET VOLUME 8.7 FL (7.4-10.4); MONOCYTES # (AUTO) 0.8 X 10^3 (0.0-1.0); MONOCYTES % (AUTO) 4 % (0-12); NEUTROPHILS % (AUTO) 94 % (42-75); PLATELET COUNT 292 10^3/uL (130-400); RED BLOOD COUNT 3.28 10^6/uL (4.35-5.85); RED CELL DISTRIBUTION WIDTH 12.5 % (10.0-14.5); WHITE BLOOD COUNT 21.4 10^3/uL (4.3-11.0)
[2017-11-20] MEDS ORDERED: NS IV 1000 ML 2,000 ML ONE (08:07)
[2017-11-20 08:11] LABS: CLARITY,URINE VERY CLOUDY; COLOR,URINE BROWN; GLUCOSE, URINE (UA) NEGATIVE (NEGATIVE); KETONES,URINE 1+ (NEGATIVE); LEUKOCYTE ESTERASE ,URINE 3+ (NEGATIVE); NITRITE,URINE NEGATIVE (NEGATIVE); PH,URINE 6.5 (5-9); PROTEIN,URINE 4+ (NEGATIVE); UROBILINOGEN,URINE NORMAL (NORMAL)
[2017-11-20] MEDS ORDERED: PROPOFOL DRIP (ICU) 100 ML IV ONE (08:23)
--- NOTE | 2017-11-20 08:25 | Diagnostic Imaging Report ---
INDICATION: Check line placement COMPARISON: None available TECHNIQUE: Two frontal radiographs of the chest dated 01/18/2018. FINDINGS: Endotracheal tube is present with the distal tip at the level of the clavicular heads. Enteric catheter is present with the distal tip within the body of the stomach. Right IJ central venous catheter is present with the distal tip overlying the mid superior vena cava. Left total shoulder arthroplasty is partially visualized. The cardiac silhouette is mildly enlarged. No significant pulmonary vascular congestion. The lungs are clear of focal pulmonary opacity. No pleural effusion. No pneumothorax. No acute osseous abnormality. IMPRESSION: Enlargement of the cardiac silhouette without superimposed acute cardiopulmonary abnormality. Lines and tubes and postsurgical changes as above. Dictated by: Dictated on workstation # [id number]
[2017-11-20 08:27] LABS: ALBUMIN 2.8 GM/DL (3.2-4.5); BILIRUBIN,TOTAL 1.1 MG/DL (0.1-1.0); CALCIUM 7.6 MG/DL (8.5-10.1); CREATININE SERUM 7.1 MG/DL (0.60-1.30); INR 1.4 (0.8-1.4); POTASSIUM 4.8 MMOL/L (3.6-5.0); PROTHROMBIN TIME PATIENT 17.5 SEC (12.2-14.7); TOTAL PROTEIN 5.1 GM/DL (6.4-8.2)
[2017-11-20 08:28] LABS: AMPHETAMINE SCREEN, URINE POSITIVE (NEGATIVE); BARBITURATE SCREEN URINE NEGATIVE (NEGATIVE); BENZODIAZEPINES SCREEN URINE NEGATIVE (NEGATIVE); CANNABINOID SCREEN, URINE NEGATIVE (NEGATIVE); COCAINE SCREEN URINE NEGATIVE (NEGATIVE); METHADONE STAT NEGATIVE (NEGATIVE); METHAMPHETAMINE SCREEN URINE S POSITIVE (NEGATIVE); OPIATE SCREEN URINE NEGATIVE (NEGATIVE); OXYCODONE STAT POSITIVE (NEGATIVE); PROPOXYPHENE STAT NEGATIVE (NEGATIVE); TRICYCLIC ANTIDEPRESSANTS SCRE POSITIVE (NEGATIVE)
[2017-11-20 08:29] LABS: BACTERIA,URINE MODERATE /HPF; BILIRUBIN,URINE 1+ (NEGATIVE); RBC,URINE TNTC /HPF; WBC,URINE >100 /HPF
[2017-11-20] MEDS ORDERED: PROPOFOL DRIP (ICU) 100 ML IV SCH (08:30)
--- NOTE | 2017-11-20 08:37 | ED General ---
General Stated Complaint: ODD BEHAVIOR Source of Information: EMS, Family Exam Limitations: Physical Impairments History of Present Illness Date Seen by Provider: Nov 20, 2017 Time Seen by Provider: 07:12 Initial Comments Here by EMS with Ultram mental status and persistent jerking movements. Patient has reportedly fallen several times overnight. Patient is unable to answer questions or follow commands but is moving all 4 extremities. She has bruising to her face as well as abrasions to both knees. Her lower extremities are covered in some sort of material like mud. EMS was unable to get IV. History very limited due to patient's current condition. arrived later and reported that she was doing okay last night and then went somewhere and came back and then she was not acting right and her limbs were all jerky. They tried throughout the night to get her to rest and she would not. She fell several times. He does report that she is on blood thinners. Denies that she' s never had anything like this previously. Timing/Duration: 4-6 Hours Severity: Severe Associated Systoms: Shortness of Air Allergies and Home Medications Allergies Coded Allergies: Penicillins (Verified Allergy, Unknown, 07/16/17) cefaclor (Verified Allergy, Unknown, 06/20/16) hydroxyzine (Verified Allergy, Unknown, 06/20/16) prochlorperazine (Verified Allergy, Unknown, 06/20/16) sulfamethoxazole (Verified Allergy, Unknown, 06/20/16) trimethoprim (Verified Allergy, Unknown, 06/20/16) Home Medications Apixaban 5 Mg Tablet, 5 MG PO BID, (Reported) Carvedilol 12.5 Mg Tablet, 12.5 MG PO BID, (Reported) Gabapentin 300 Mg Capsule, Unknown Dose PO, (Reported) Nitrofurantoin Monohyd/M-Cryst 100 Mg Capsule, 1 TAB PO BID for 10 Days Prescribed by: JD SNOW on 02/28/17 7844 Omeprazole Magnesium 20 Mg Tablet.dr, 40 MG PO DAILY, (Reported) Ondansetron 4 Mg Tab.rapdis, 4 MG PO Q4H PRN for NAUSEA/VOMITING-1ST LINE, ( Reported) Trazodone HCl 100 Mg Tablet, 100 MG PO, (Reported) Constitutional: see HPI, fever Respiratory: see HPI, short of breath Skin: see HPI, change in color, lesions Psychiatric/Neurological: See HPI Other Unable to complete review of systems due to altered mental status Past Mouwuru-Efvrlk-Gsdcjm Hx Patient Social History Alcohol Use: Occasionally Uses Alcohol Beverage of Choice: Beer Smoking Status: Current Everyday Smoker Type Used: Cigarettes 2nd Hand Smoke Exposure: Yes Recent Foreign Travel: No Contact w/Someone Who Travel: No Recent Hopitalizations: Yes (SHOULDER REPLACEMENT) Immunizations Up To Date Tetanus Booster (TDap): Less than 5yrs Date of Pneumonia Vaccine: Oct 04, 2010 Seasonal Allergies Seasonal Allergies: Yes Surgeries History of Surgeries: Yes (SHOULDER, KNEE, CEA, LIPOMA) Surgeries: Hysterectomy, Orthopedic Respiratory History of Respiratory Disorde: Yes Respiratory Disorders: Asthma Cardiovascular History of Cardiac Disorders: Yes Cardiac Disorders: Deep Vein Thrombosis, Hypertension Neurological History of Neurological Disord: No 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 System 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 Disorders: No 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 Genitourinary History of Genitourinary Disor: Yes Genitourinary Disorders: UTI-Chronic Gastrointestinal History of Gastrointestinal Di: Yes Gastrointestinal Disorders: Gastroesophageal Reflux, Liver Disease/Jaundice Musculoskeletal History of Musculoskeletal Dis: No Endocrine History of Endocrine Disorders: No Cancer History of Cancer: Yes Cancer: Bladder Psychosocial History of Psychiatric Problem: Yes Behavioral Health Disorders: Anxiety, Depression Integumentary History of Skin or Integumenta: No Blood Transfusions History of Blood Disorders: No (4 DVT'S) Adverse Reaction to a Blood Tr: No Reviewed Nursing Assessment Reviewed/Agree w Nursing PMH: Yes Family Medical History Significant Family History: No Pertinent Family Hx Other History per records as patient unable to provide information. Physical Exam-Suspected Sepsis Physical Exam Vital Signs Vital Signs - First Documented 11/20/17 11/20/17 07:12 08:46 Temp 100.5 Pulse 115 Resp 36 B/P (MAP) 68/40 (49) Pulse Ox 100 O2 Delivery OxyMask FiO2 60 Capillary Refill : General Appearance: Obese, Severe Distress HEENT: PERRL/EOMI, Pharynx Normal Neck: Full Range of Motion, Normal Inspection, Supple Respiratory: Lungs Clear, No Respiratory Distress Cardiovascular: No Murmur, Tachycardia Gastrointestinal: Non Tender, Soft Back: No Vertebral Tenderness, Other (no obvious injuries noted and patient moving without difficulty.) Extremity: Other (multiple abrasions to bilateral upper and lower extremities especially at the knees.) Neurologic/Psychiatric: Disoriented x3, Other (patient has jerking movements of all 4 extremities and persistently tries to move about the bed. Unable to hold still. Does not respond to questions and does not answer questions. States that she has to urinate but otherwise does not say anything.) Skin: warm/dry, rash (under bilateral breast), other (abrasions to bilateral knees, bilateral elbows and chin. She has ecchymosis to the chin on the right side. ) Focused Exam Evaluation Lactate Level Laboratory Tests 11/20/17 07:54: Lactic Acid Level 1.75 Lactic Acid Level Laboratory Tests Test 11/20/17 07:54 Lactic Acid Level 1.75 MMOL/L (0.50-2.00) Lumen: triple Central Line Procedure: betadine prep, sterile drapes applied, sterile dressing applied Position: internal jugular (R) Complications: none Post Position: sutured, good blood return, position confirmed w/ CXR Progress Central line placed via ultrasound guidance to the right IJ. One stick. No complications. Tolerated procedure well. Sutured in place and covered with sterile dressing. Post chest x-ray shows central line good position. Date of ETT Placement: Nov 20, 2017 Time of ETT Placement: 07:32 Intubation Method: orotracheal Tube Size: 7.5 Medications: Etomidate, Rocuronium Positive End Tide CO2: Yes Breath Sounds after Intubation: bilateral-equal Intubation Complications: no complications Post Intubation Xray: Yes Progress/Xray Impression: good position Progress Intubated emergently for respiratory failure and altered mental status. Tolerated procedure well without complications. Progress/Results/Core Measures Suspected Sepsis SIRS Temperature: Pulse: Respiratory Rate: Laboratory Tests 11/20/17 07:54: White Blood Count 21.4H Blood Pressure / Mean: Laboratory Tests 11/20/17 07:54: Lactic Acid Level 1.75 Laboratory Tests 11/20/17 07:54: Creatinine 7.10H, INR Comment 1.4, Platelet Count 292, Total Bilirubin 1.1H Results/Orders Lab Results Laboratory Tests Test 11/20/17 07:20 11/20/17 07:54 11/20/17 08:14 11/20/17 08:20 Range/Units Urine Color BROWN H Urine Clarity VERY CLOUDY H Urine pH 6.5 5-9 Urine Specific Maiden 1.020 1.016-1.022 Urine Protein 4+ NEGATIVE Urine Glucose (UA) NEGATIVE NEGATIVE Urine Ketones 1+ H NEGATIVE Urine Nitrite NEGATIVE NEGATIVE Urine Bilirubin 1+ H NEGATIVE Urine Urobilinogen NORMAL NORMAL MG/DL Urine Leukocyte Esterase 3+ H NEGATIVE Urine RBC (Auto) 5+ H NEGATIVE Urine RBC TNTC H /HPF Urine WBC >100 H /HPF Urine Crystals NONE /LPF Urine Bacteria MODERATE H /HPF Urine Casts NONE /LPF Urine Mucus NEGATIVE /LPF Urine Culture Indicated YES Urine Opiates Screen NEGATIVE NEGATIVE Urine Oxycodone Screen POSITIVE H NEGATIVE Urine Methadone Screen NEGATIVE NEGATIVE Urine Propoxyphene Screen NEGATIVE NEGATIVE Urine Barbiturates Screen NEGATIVE NEGATIVE Ur Tricyclic Antidepressants Screen POSITIVE H NEGATIVE Urine Phencyclidine Screen NEGATIVE NEGATIVE Urine Amphetamines Screen POSITIVE H NEGATIVE Urine Methamphetamines Screen POSITIVE H NEGATIVE Urine Benzodiazepines Screen NEGATIVE NEGATIVE Urine Cocaine Screen NEGATIVE NEGATIVE Urine Cannabinoids Screen NEGATIVE NEGATIVE White Blood Count 21.4 H 4.3-11.0 10^3/uL Red Blood Count 3.28 L 4.35-5.85 10^6/uL Hemoglobin 10.0 L 11.5-16.0 G/DL Hematocrit 29 L 35-52 % Mean Corpuscular Volume 88 80-99 FL Mean Corpuscular Hemoglobin 31 25-34 PG Mean Corpuscular Hemoglobin Concent 35 32-36 G/DL Red Cell Distribution Width 12.5 10.0-14.5 % Platelet Count 292 130-400 10^3/uL Mean Platelet Volume 8.7 7.4-10.4 FL Neutrophils (%) (Auto) 94 H 42-75 % Lymphocytes (%) (Auto) 3 L 12-44 % Monocytes (%) (Auto) 4 0-12 % Eosinophils (%) (Auto) 0 0-10 % Basophils (%) (Auto) 0 0-10 % Neutrophils # (Auto) 20.0 H 1.8-7.8 X 10^3 Lymphocytes # (Auto) 0.6 L 1.0-4.0 X 10^3 Monocytes # (Auto) 0.8 0.0-1.0 X 10^3 Eosinophils # (Auto) 0.0 0.0-0.3 10^3/uL Basophils # (Auto) 0.0 0.0-0.1 10^3/uL Neutrophils % (Manual) 95 % Lymphocytes % (Manual) 1 % Monocytes % (Manual) 1 % Band Neutrophils 3 % Blood Morphology Comment NORMAL Prothrombin Time 17.5 H 12.2-14.7 SEC INR Comment 1.4 0.8-1.4 Activated Partial Thromboplast Time 35 24-35 SEC Sodium Level 131 L 135-145 MMOL/L Potassium Level 4.8 3.6-5.0 MMOL/L Chloride Level 97 L 98-107 MMOL/L Carbon Dioxide Level 10 L 21-32 MMOL/L Anion Gap 24 H 5-14 MMOL/L Blood Urea Nitrogen 73 H 7-18 MG/DL Creatinine 7.10 H 0.60-1.30 MG/DL Estimat Glomerular Filtration Rate 6 BUN/Creatinine Ratio 10 Glucose Level 180 H 70-105 MG/DL Lactic Acid Level 1.75 0.50-2.00 MMOL/L Calcium Level 7.6 L 8.5-10.1 MG/DL Total Bilirubin 1.1 H 0.1-1.0 MG/DL Aspartate Amino Transf (AST/SGOT) 62 H 5-34 U/L Alanine Aminotransferase (ALT/SGPT) 25 0-55 U/L Alkaline Phosphatase 115 40-136 U/L Total Creatine Kinase 2840 H 29-168 U/L Total Protein 5.1 L 6.4-8.2 GM/DL Albumin 2.8 L 3.2-4.5 GM/DL Glucometer 142 H 70-110 MG/DL Blood Gas Puncture Site LT BRACH Blood Gas Patient Temperature 98.3 Arterial Blood pH 7.03 *L 7.37-7.43 Arterial Blood Partial Pressure CO2 55 H 35-45 MMHG Arterial Blood Partial Pressure O2 88 79-93 MMHG Arterial Blood HCO3 14 *L 23-27 MMOL/L Arterial Blood Total CO2 15.4 L 21.0-31.0 MMOL/L Arterial Blood Oxygen Saturation 93 L 94-100 % Arterial Blood Base Excess -15.3 L -2.5-2.5 MMOL/L Corey Test YES-POS Blood Gas Ventilator Setting YES Blood Gas Inspired Oxygen 60% My Orders Orders - ANNIE ALEXANDER MD Iv 1000 Ml (Sodium Chloride 0.9%) (11/20/17 07:49) Cbc With Automated Diff (11/20/17 07:51) Comprehensive Metabolic Panel (11/20/17 07:51) Lactic Acid Analyzer (11/20/17 07:51) Blood Culture (11/20/17 07:51) Sputum Culture (11/20/17 07:51) Ua Culture If Indicated (11/20/17 07:51) Protime With Inr (11/20/17 07:51) Partial Thromboplastin Time (11/20/17 07:51) Chest 1 View, Ap/Pa Only (11/20/17 07:51) O2 (11/20/17 07:51) Saline Lock/Iv-Start (11/20/17 07:51) Saline Lock/Iv-Start (11/20/17 07:51) Vital Signs Adult Sepsis Patie Q1H (11/20/17 07:51) Remove Rings In Anticipation O (11/20/17 07:51) Norepinephrine (Levophed) (11/20/17 07:51) Ns (Ivpb) (Sodium Chloride 0.9%) (11/20/17 07:51) Manual Differential (11/20/17 07:54) Ns Iv 1000 Ml (Sodium Chloride 0.9%) (11/20/17 08:07) Ct Head/Cervical Spine Wo (11/20/17 08:10) Drug Screen Stat (Urine) (11/20/17 08:10) Propofol Drip (Icu) (Diprivan Drip (Icu) (11/20/17 08:23) Creatine Kinase (11/20/17 08:28) Propofol Drip (Icu) (Diprivan Drip (Icu) (11/20/17 08:30) Urine Culture (11/20/17 07:20) Ekg Tracing (11/20/17 09:09) Meropenem (Merrem 500 Mg) (11/20/17 09:15) Meropenem (Merrem 500 Mg) (11/20/17 09:10) Ns (Ivpb) (Sodium Chloride 0.9% Ivpb Bag (11/20/17 09:12) Arterial Blood Gas (11/20/17 09:24) Medications Given in ED Current Medications Medications Dose Ordered Sig/Jeanne Route Start Time Stop Time Status Last Admin Dose Admin Meropenem 500 mg/ Dextrose 100 ml @ 200 mls/hr ONCE ONCE IV 11/20/17 09:15 11/20/17 09:44 DC 11/20/17 09:20 200 MLS/HR Sodium Chloride 1,000 ml @ ud STK-MED ONCE .ROUTE 11/20/17 07:49 11/20/17 07:52 DC 11/20/17 07:29 1,000 MLS/HR Vital Signs/I&O Vital Sign - Last 12Hours 11/20/17 11/20/17 11/20/17 11/20/17 07:12 07:12 08:28 08:46 Temp 100.5 Pulse 115 114 113 Resp 36 15 16 B/P (MAP) 68/40 (49) 92/65 Pulse Ox 100 100 98 96 O2 Delivery OxyMask FiO2 60 11/20/17 09:43 Temp 98.3 Pulse 110 Resp 15 B/P (MAP) 103/57 Pulse Ox 98 Capillary Refill : Progress Note : Progress Note Seen and evaluated on arrival by EMS. Patient somewhat thrashing about on the bed and we are unable to keep her still. EMS reports blood sugar of 33 but were unable to get a line and she was unable to take oral glucose because she could not follow commands. Ativan 2 mg IM. This had no effect and nursing unable to get line. Intraosseous line placed to the left tib-fib to allow for access. Patient will require intubation emergently due to altered mental status. Patient hypotensive. Castellano catheter placed which showed dark brown, thick urine. Patient will require central line for IV fluids and blood. Patient intubated successfully using Versed, etomidate and rocuronium. Central line placed after intubation. Normal saline 1 L bolus initiated to the intraosseous access. IV fluids, labs, blood cultures, lactic acid, chest x-ray , Castellano catheter, NG tube, CT head and neck, urine drug screen and EKG ordered. ABG ordered. 0854: We have initiated Levophed and propofol drip for sedation and blood pressure management and initiated transfer process. 0925: Blood pressure currently 90/50 with heart rate of 110 and O2 sat of 97 percent on vent with tidal volume 450, FiO2 O2 at 60 percent and PEEP of 5. Respiratory rate of 16. We have increased overnight Levophed to 19 mcg/m to keep systolic greater than 90 and map greater than 65. I have discussed the case with [facility] in [place], [place], Dr. Alvarenga. We have reviewed the case in entirety. He has accepted the patient for transfer to their system due to the significant acute renal failure noted creatinine at 7.1. We have no nephrology or dialysis capability at this facility. We discussed antibiotics due to her allergies. We will initiate meropenem 500 mg IV 1. Blood cultures are pending. Lactic acid is not elevated. Total CK is markedly elevated. I did discuss with the patient's about her condition and the critical nature of her illness. He verbalizes understanding. He did have to leave and we will inform him when he returns of condition and transfer. Pending bed assignment. 0930: Bed received. is back and I have informed him of all the findings and he agrees with transfer. To [facility] via EMS in critical condition but stable. 1015: Blood pressure 109/61 with heart rate of 110 and O2 sat of 99 percent on previous percent, temperature van and Levophed settings. EMS has arrived and report given by nursing and myself. To be transferred to [place], [place]. ECG Initial ECG Impression Date: Nov 20, 2017 Initial ECG Impression Time: 09:03 Initial ECG Rate: 110 Initial ECG Rhythm: S.Tach Comment Sinus tachycardia with normal but rightward axis. No evidence of ST elevation ND. Morphology of rhythm similar to previous although rate increased from 25 May 2016. Question first-degree AV block. Interpreted by me. Diagnostic Imaging Diagonstic Imaging: Xray Plain Films/CT/US/NM/MRI: chest Comments VIA [facility]. [place], [place] NAME: ROSA ISELA SOLIMAN Sharon [facility] REC#: [id number] PT STATUS: REG ER : 1960 PHYSICIAN: ANNIE ALEXANDER MD ADMIT DATE: 11/20/17/ER Draft Date of Exam:11/20/17 CHEST 1 VIEW, AP/PA ONLY INDICATION: Check line placement COMPARISON: None available TECHNIQUE: Two frontal radiographs of the chest dated 01/18/2018. FINDINGS: Endotracheal tube is present with the distal tip at the level of the clavicular heads. Enteric catheter is present with the distal tip within the body of the stomach. Right IJ central venous catheter is present with the distal tip overlying the mid superior vena cava. Left total shoulder arthroplasty is partially visualized. The cardiac silhouette is mildly enlarged. No significant pulmonary vascular congestion. The lungs are clear of focal pulmonary opacity. No pleural effusion. No pneumothorax. No acute osseous abnormality. IMPRESSION: Enlargement of the cardiac silhouette without superimposed acute cardiopulmonary abnormality. Lines and tubes and postsurgical changes as above. Dictated on workstation # [id number] Dict: 11/20/17807 Trans: 11/20/17 0825 [facility] [id number] Interpreted by: DONY MIRANDA MD Electronically signed by: Jaqueline Imaging: CT Plain Films/CT/US/NM/MRI: c-spine, head Comments VIA [place], [place] NAME: ROSA ISELA SOLIMAN [facility] REC#: [id number] PT STATUS: REG ER : 1960 PHYSICIAN: ANNIE ALEXANDER MD ADMIT DATE: 11/20/17/ER Draft Date of Exam:11/20/17 CT HEAD/CERVICAL SPINE WO PROCEDURE: CT head and CT cervical spine without contrast. TECHNIQUE: Multiple contiguous axial images were obtained through the brain and cervical spine without the use of intravenous contrast. Sagittal and coronal reformations through the cervical spine were then performed. INDICATION: Unresponsive, multiple recent falls. COMPARISON: Head CT 05/05/2017. DISCUSSION: Head: No adverse interval change. Mild diffuse brain volume loss is stable. No acute intracranial hemorrhage, mass, midline shift, hydrocephalus. The visualized orbits, paranasal sinuses, mastoid air cells, and calvarium are unremarkable. Cervical spine: Endotracheal tube and enteric tube are present. No acute fracture or subluxation identified. Moderate degenerative disease is noted throughout. Paraspinal soft tissues are unremarkable. IMPRESSION: 1. Stable negative head CT. 2. No acute osseous abnormality identified within the cervical spine. Dictated on workstation # [id number] Dict: 11/20/1753 Trans: 11/20/17 0857 [facility] [id number] Interpreted by: SUZANNE MEDRANO MD Electronically signed by: Departure Impression Impression: Primary Impression: Acute renal failure Qualified Codes: N17.9 - Acute kidney failure, unspecified Additional Impressions: Respiratory failure Qualified Codes: J96.01 - Acute respiratory failure with hypoxia UTI (urinary tract infection) Qualified Codes: N30.01 - Acute cystitis with hematuria Shock Disposition: SHT-TRM HOSP Condition: Critical Transfer Transfer Time: 08:54 Transfer Facility: [place], [place], Dr. Alvarenga accepting Method of Transfer: EMS Departure-Patient Inst. Referrals: LIA MONTES DO (PCP/Family) Primary Care Physician ANNIE ALEXANDER MD Nov 20, 2017 08:37
[2017-11-20 08:41] LABS: BAND NEUTROPHILS 3 %; LYMPHOCYTES % (MANUAL) 1 %; MONOCYTES % (MANUAL) 1 %; NEUTROPHILS % (MANUAL) 95 %; RBC MORPH NORMAL
[2017-11-20 08:46] VITALS: BP 68/40
--- NOTE | 2017-11-20 08:58 | Diagnostic Imaging Report ---
PROCEDURE: CT head and CT cervical spine without contrast. TECHNIQUE: Multiple contiguous axial images were obtained through the brain and cervical spine without the use of intravenous contrast. Sagittal and coronal reformations through the cervical spine were then performed. INDICATION: Unresponsive, multiple recent falls. COMPARISON: Head CT 05/05/2017. DISCUSSION: Head: No adverse interval change. Mild diffuse brain volume loss is stable. No acute intracranial hemorrhage, mass, midline shift, hydrocephalus. The visualized orbits, paranasal sinuses, mastoid air cells, and calvarium are unremarkable. Cervical spine: Endotracheal tube and enteric tube are present. No acute fracture or subluxation identified. Moderate degenerative disease is noted throughout. Paraspinal soft tissues are unremarkable. IMPRESSION: 1. Stable negative head CT. 2. No acute osseous abnormality identified within the cervical spine. Dictated by: Dictated on workstation # [id number]
[2017-11-20] MEDS ORDERED: MEROPENEM 500 MG VIAL (MERREM) IV ONE (09:10)
[2017-11-20] MEDS ORDERED: NS (IVPB) 50 ML ONE (09:12)
[2017-11-20] MEDS ORDERED: MEROPENEM IV ONE (09:15)
[2017-11-20] MEDS ORDERED: D5W IV ONE (09:15)
[2017-11-20 09:28] LABS: ABG BASE EXCESS -15.3 MMOL/L (-2.5-2.5); ABG OXYGEN SATURATION 93 % (94-100); ABG PCO2 55 MMHG (35-45); ABG PO2 88 MMHG (79-93); ABG TCO2 15.4 MMOL/L (21.0-31.0)
[2017-11-20 09:29] LABS: ABG PH 7.03 (7.37-7.43)
[2017-11-20 09:30] LABS: ALLENS TEST YES-POS; INSPIRED O2 60%; PATIENT TEMP 98.3; VENTILATOR YES
[2017-11-20 09:43] VITALS: BP 103/57
[2017-11-20] MEDS ORDERED: NS IV 1000 ML 1,000 ML IV SCH (11:00)
== END 2017-11-20 10:34 | disposition short-term general hospital (02) ==
LOC: EDUNIT# 07:15 → ER 07:17
DX: N17.9 Acute kidney failure, unspecified (principal); J96.90 Respiratory failure, unspecified, unspecified whether with hypoxia or hypercapnia; N39.0 Urinary tract infection, site not specified; R57.9 Shock, unspecified; J45.909 Unspecified asthma, uncomplicated; I10 Essential (primary) hypertension; K21.9 Gastro-esophageal reflux disease without esophagitis; F41.9 Anxiety disorder, unspecified; F32.9 Major depressive disorder, single episode, unspecified; F17.210 Nicotine dependence, cigarettes, uncomplicated; Z90.710 Acquired absence of both cervix and uterus; Z86.718 Personal history of other venous thrombosis and embolism; Z85.51 Personal history of malignant neoplasm of bladder; Z96.619 Presence of unspecified artificial shoulder joint; Z88.2 Allergy status to sulfonamides; Z88.8 Allergy status to other drugs, medicaments and biological substances; Z88.1 Allergy status to other antibiotic agents
CPT/HCPCS: 31500; 36415; 36556; 36680; 51702; 70450; 71045; 72125; 80053; 80306; 81000; 82550; 82805; 82962; 83605; 85007; 85027; 85610; 85730; 87040; 87070; 87077; 87088; 87186; 87205; 93005

== ENCOUNTER → 2018-02-09 | Outpatient (CLI) | payer MEDICARE, MEDICAID | LOC: LAB 15:54 | PROVIDERS: ATTEND Anesthesiology | DX: Z01.812 Encounter for preprocedural laboratory examination (principal) | CPT/HCPCS: 36415; 84132 ==

== ENCOUNTER → 2018-04-04 | Outpatient (CLI) | payer MEDICAID, MEDICARE ==
[~2018-04-04] MED LIST changes: +TRAZ-190 PO; -TRAZ100T92 PO
--- NOTE | 2018-04-04 14:51 | Diagnostic Imaging Report ---
PROCEDURE: US left lower extremity venous. TECHNIQUE: Multiple real-time grayscale images were obtained over the left lower extremity in various projections. Additional duplex Doppler and color Doppler images were also obtained. INDICATION: Left leg pain. COMPARISON: None. FINDINGS: The left common femoral vein, superficial femoral vein and popliteal veins appear patent and compressible without visible thrombus. There is normal variability of waveform with augmentation. 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 IMPRESSION: No evidence of deep venous thrombosis in the left lower extremity. Dictated by: Dictated on workstation # [id number]
--- NOTE | 2018-04-04 16:11 | Diagnostic Imaging Report ---
EXAMINATION: Magnetic resonance imaging of the left knee without intravenous contrast. DATE: 04/04/2018. COMPARISON: None. INDICATION: 57-year-old female, left knee pain after a fall in February 2018. TECHNIQUE: Multiplanar/multisequence noncontrast enhanced MR imaging was accomplished. FINDINGS: There are motion limitations of the exam. MENISCI: The medial meniscus is grossly intact. The lateral meniscus is grossly intact. LIGAMENTS AND TENDONS: The anterior and posterior cruciate ligaments are intact. The medial collateral ligament is intact. The iliotibial band, mid third lateral capsular ligament, fibular collateral ligament, biceps femoris tendon and conjoined tendon are intact. The quadriceps tendon and patella ligament are intact. JOINT: There are areas of near full-thickness cartilage loss involving the mid weightbearing portion of the medial femoral condyle with subjacent thinning of the cartilage of the medial tibial plateau. The lateral and patellofemoral compartment cartilage appears grossly intact. There is no knee joint effusion, prominent synovitis, or intra-articular body. BONE: There is a mildly comminuted intra-articular fracture of the lateral tibial plateau without identified offset of the articulating surface. There is adjacent marrow edema. The fracture line is perhaps best illustrated on sagittal proton density fat saturation sequence image 5 and adjacent sequential images. There is degenerative related marrow edema in the medial femoral condyle. The additional bone marrow signal is grossly unremarkable. BURSAE AND SOFT TISSUES: There is a small amount of fluid within the popliteal fossa without sizable Mcdermott's cyst. IMPRESSION: 1. Mildly comminuted essentially nondisplaced fracture involving the lateral tibial plateau without identified offset of the articulating surface. There is adjacent marrow edema. 2. Grossly intact medial and lateral meniscus. 3. Intact anterior and posterior cruciate ligaments. 4. Moderate to severe medial compartment osteoarthritis. No knee joint effusion. Report faxed to Dr. Cm James ([phone]) and message given to Bekah at Dr. James's office at 4:10 p.m. 04/04/2018/cb Dictated by: Dictated on workstation # [id number]
== END ==
LOC: RAD 12:37
PROVIDERS: ATTEND Orthopaedic Surgery
DX: S82.145A Nondisplaced bicondylar fracture of left tibia, initial encounter for closed fracture (principal); I82.402 Acute embolism and thrombosis of unspecified deep veins of left lower extremity; S83.207A Unspecified tear of unspecified meniscus, current injury, left knee, initial encounter; M17.12 Unilateral primary osteoarthritis, left knee
CPT/HCPCS: 73721

== ENCOUNTER → 2019-02-02 | Outpatient (CLI) | payer MEDICARE, OTHER ==
[~2019-02-02] MED LIST changes: +HYDR-4226 PO; +HYDR-4227 PO; -HYDR-756 PO; -HYDR-757 PO; -RIVA15TA PO; +RIVA15TA2 PO
--- NOTE | 2019-02-02 17:15 | Diagnostic Imaging Report ---
PROCEDURE: MRI left joint lower extremity without contrast. TECHNIQUE: Multiplanar, multisequence non contrast-enhanced MRI of the left lower extremity was accomplished. INDICATION: Knee pain. FINDINGS: The previous MRI left knee exam of 04/04/2018 noted mildly comminuted essentially nondisplaced fractures involving the lateral tibial plateau. There was associated bone edema. On this exam, there is still at least a moderate amount of bone edema throughout the lateral tibial plateau. This may be secondary to bone contusions and/or microfractures. Furthermore in the interval since the previous exam, several subarticular cysts have developed in the lateral aspect of the proximal tibia. These are most likely degenerative in nature. Furthermore, there is now a prominent area of bone edema along the lateral half of the medial femoral condyle. This was not present on the prior exam and may be related to either a bone contusion or to repetitive trauma. The degenerative disease involving the subarticular region of the medial femoral condyle seen on the previous study has progressed. There are now several subarticular cysts present in the medial femoral condyle as well. In addition, the proton-dense fat sagittal series now shows that there is a tear involving the inferior articular surface of the posterior horn of the medial meniscus. This was not clearly evident on the prior study. The lateral meniscus remains intact. The anterior and posterior cruciate ligaments, the quadriceps and infrapatellar tendons, the collateral ligaments, the biceps femoris tendon, and the iliotibial band show no sign of a tear. However, there is now edema/inflammation about the medial collateral ligament. There is no sign of an injury to either the medial or lateral retinaculum. There is no joint effusion identified nor is there any evidence for a Mcdermott's cyst. IMPRESSION: 1. The appearance of the knee joint has worsened since the prior study as numerous subarticular cysts have developed in the lateral femoral condyle and to a lesser extent in the medial femoral condyle. These cysts are most likely due to progressive degenerative disease. There is also extensive bone edema involving both the proximal tibia laterally and the medial femoral condyle. Whether this bone edema is due to recent contusions or to repetitive trauma is not certain. 2. There is now a small tear of the posterior horn of the medial meniscus. The lateral meniscus remains intact. 3. There is edema/inflammation about the medial collateral ligament. The MCL is intact however and the other major ligaments and tendons show no sign of an acute injury. Dictated by: Dictated on workstation # [id number]
== END ==
LOC: RAD 15:29
PROVIDERS: ATTEND Orthopaedic Surgery
DX: S83.207A Unspecified tear of unspecified meniscus, current injury, left knee, initial encounter (principal); M25.862 Other specified joint disorders, left knee
CPT/HCPCS: 73721

== ENCOUNTER 2019-02-13 02:40 | Emergency (ER) | payer MEDICARE, OTHER ==
[~2019-02-13] VITALS: Ht 167.6 cm; Wt 91.6 kg
[2019-02-13 02:57] VITALS: BP 156/96
--- NOTE | 2019-02-13 03:22 | NUR ---
Pt refused to sign discharge instructions and left emergency department.
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
== END 2019-02-13 03:25 | disposition home or self-care (01) ==
LOC: EDUNIT# 02:40 → ER 02:43
DX: M25.562 Pain in left knee (principal); M79.671 Pain in right foot; C43.9 Malignant melanoma of skin, unspecified; J45.909 Unspecified asthma, uncomplicated; I10 Essential (primary) hypertension; K21.9 Gastro-esophageal reflux disease without esophagitis; F41.9 Anxiety disorder, unspecified; F32.9 Major depressive disorder, single episode, unspecified; Z85.51 Personal history of malignant neoplasm of bladder; Z87.19 Personal history of other diseases of the digestive system; Z87.440 Personal history of urinary (tract) infections; Z86.718 Personal history of other venous thrombosis and embolism; Z79.01 Long term (current) use of anticoagulants; Z88.0 Allergy status to penicillin; Z88.1 Allergy status to other antibiotic agents; Z88.8 Allergy status to other drugs, medicaments and biological substances; Z88.2 Allergy status to sulfonamides; Z77.22 Contact with and (suspected) exposure to environmental tobacco smoke (acute) (chronic); Z90.710 Acquired absence of both cervix and uterus
CPT/HCPCS: 99283

== ENCOUNTER 2019-06-28 13:51 | Emergency (ER) | payer MEDICARE ==
[~2019-06-28] VITALS: Ht 167 cm; Wt 95.0 kg
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
[2019-06-28] MEDS ORDERED: LIDOCAINE/EPI 2% 1:100,00 (XYLOCAINE) 20 ML VIAL ONE (14:14)
[2019-06-28] MEDS ORDERED: LIDOCAINE/EPI 1%-1:100,000 (XYLOCAINE) 20ML INJ ONE (14:15)
--- NOTE | 2019-06-28 14:20 | NUR ---
PT REFUSES TO GIVE UA OR ALLOW US TO DRAW BLOOD.
--- NOTE | 2019-06-28 14:36 | NUR ---
SAVE LINE CONTACTED FOR PT NEEDING A SCREENING DONE
[2019-06-28 16:02] VITALS: BP 135/106
== END 2019-06-28 16:02 | disposition left against medical advice (07) ==
LOC: EDUNIT# 13:51 → ER 13:52
DX: S61.511A Laceration without foreign body of right wrist, initial encounter (principal); I10 Essential (primary) hypertension; J45.909 Unspecified asthma, uncomplicated; F41.9 Anxiety disorder, unspecified; F32.9 Major depressive disorder, single episode, unspecified; K21.9 Gastro-esophageal reflux disease without esophagitis; Z85.51 Personal history of malignant neoplasm of bladder; Z85.820 Personal history of malignant melanoma of skin; Z86.718 Personal history of other venous thrombosis and embolism; Z87.440 Personal history of urinary (tract) infections; Z90.710 Acquired absence of both cervix and uterus; Z77.22 Contact with and (suspected) exposure to environmental tobacco smoke (acute) (chronic); Z79.01 Long term (current) use of anticoagulants; Z88.1 Allergy status to other antibiotic agents; Z88.2 Allergy status to sulfonamides; Z88.8 Allergy status to other drugs, medicaments and biological substances; Z88.0 Allergy status to penicillin; W26.8XXA Contact with other sharp object(s), not elsewhere classified, initial encounter; Y92.009 Unspecified place in unspecified non-institutional (private) residence as the place of occurrence of the external cause

== ENCOUNTER 2019-07-03 21:52 | Emergency (ER) | payer MEDICARE ==
[~2019-07-03] VITALS: Ht 167.7 cm; Wt 118.1 kg
[2019-07-03] MEDS ORDERED: NS IV 1000 ML 1,000 ML IV SCH (21:59)
--- NOTE | 2019-07-03 22:08 | ED Psychosocial ---
General Chief Complaint: Substance Abuse Stated Complaint: OVERDOSE Source: patient Exam Limitations: no limitations History of Present Illness Date Seen by Provider: Jul 03, 2019 Time Seen by Provider: 21:50 Initial Comments [facility] where she was found sleeping by chronic [employer]. She had in her lap a bottle of oxycodone 10 mg 60 tablets that was completely empty filled 4 days ago. She woke up easily for EMS and answered all questions appropriately. She denies having any pain shortness of breath or suicidal intent. Chronic the past on that she had 3 different forms of IV on her with 3 separate names Vandana Dewey, Vandana Osborne and Vandana Laguna. [facility] employees out that they've seen her multiple times, sleeping in the parking lot [facility]. Patient refuses to answer any further medical questions. She says she only came because the busboy forced her to come. She says her leg hurts 10 out of 10 pain and she wants pain medicine for it. She says she does not take any prescription drugs or use any pharmacies. Allergies and Home Medications Allergies Coded Allergies: Penicillins (Verified Allergy, Unknown, 07/16/17) cefaclor (Verified Allergy, Unknown, 06/20/16) hydroxyzine (Verified Allergy, Unknown, 06/20/16) prochlorperazine (Verified Allergy, Unknown, 06/20/16) sulfamethoxazole (Verified Allergy, Unknown, 06/20/16) trimethoprim (Verified Allergy, Unknown, 06/20/16) Home Medications Apixaban 5 Mg Tablet, 5 MG PO BID, (Reported) Carvedilol 12.5 Mg Tablet, 12.5 MG PO BID, (Reported) Nitrofurantoin Monohyd/M-Cryst 100 Mg Capsule, 1 TAB PO BID Prescribed by: JD SNOW on 02/28/17 5948 Omeprazole Magnesium 20 Mg Tablet.dr, 40 MG PO DAILY, (Reported) Ondansetron 4 Mg Tab.rapdis, 4 MG PO Q4H PRN for NAUSEA/VOMITING-1ST LINE, (Reported) Patient Home Medication List Home Medication List Reviewed: Yes Review of Systems Constitutional: No chills, No diaphoresis, No fever EENTM: No hearing loss, No blurred vision Respiratory: No cough, No short of breath Cardiovascular: No chest pain, No edema Gastrointestinal: No abdominal pain, No constipation, No diarrhea Genitourinary: No discharge, No dysuria Musculoskeletal: see HPI; No back pain Past Wsfubip-Jsmcmm-Qgkuma Hx Patient Social History Alcohol Use: Occasionally Uses Alcohol Beverage of Choice: Beer Recreational Drug Use: Yes Drug of Choice: recreational opiates, benzos, methamphetamines Smoking Status: Current Everyday Smoker Type Used: Cigarettes 2nd Hand Smoke Exposure: Yes Recent Foreign Travel: No Contact w/Someone Who Travel: No Recent Hopitalizations: No (SHOULDER REPLACEMENT) Immunizations Up To Date Tetanus Booster (TDap): Less than 5yrs Date of Pneumonia Vaccine: Oct 04, 2010 Seasonal Allergies Seasonal Allergies: Yes Past Medical History Surgeries: Yes (BI LAT SHOULDERS, RT KNEE, CEA, LIPOMA, LT ANKLE) Appendectomy, Gallbladder, Hysterectomy, Orthopedic Respiratory: Yes Asthma, Chronic Bronchitis Cardiac: Yes Deep Vein Thrombosis, Hypertension Neurological: No 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 Disorders: 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 0oz. 91.176834mm; 34.00 BMI Method:Stated General Appearance: WD/WN, no apparent distress HEENT: PERRL/EOMI, pharynx normal Neck: non-tender, full range of motion Respiratory: lungs clear, normal breath sounds, no respiratory distress, no accessory muscle use Cardiovascular: normal peripheral pulses, regular rate, rhythm, no edema Peripheral Pulses: 2+ Dorsalis Pedis (R), 2+ Left Dors-Pedis (L) Gastrointestinal: normal bowel sounds, non tender, soft Extremities: normal range of motion, non-tender, normal inspection, normal capillary refill Neurologic/Psychiatric: alert (GCS 14, somnolent), normal mood/affect, oriented x 3 Behavior/Eye Contact: cooperative, good eye contact, normal speech Thoughts/Hallucinations: normal thought pattern, no apparent hallucination Skin: normal color, warm/dry Procedures/Interventions Date of ETT Placement: Nov 20, 2017 Time of ETT Placement: 731 Suture Size: 5-0 Progress/Results/Core Measures Results/Orders Lab Results Laboratory Tests Test 07/03/19 22:10 07/03/19 22:41 Range/Units Urine Color YELLOW Urine Clarity SLIGHTLY CLOUDY Urine pH 5 5-9 Urine Specific Strum 1.010 L 1.016-1.022 Urine Protein NEGATIVE NEGATIVE Urine Glucose (UA) NEGATIVE NEGATIVE Urine Ketones NEGATIVE NEGATIVE Urine Nitrite POSITIVE H NEGATIVE Urine Bilirubin NEGATIVE NEGATIVE Urine Urobilinogen NORMAL NORMAL MG/DL Urine Leukocyte Esterase 2+ H NEGATIVE Urine RBC (Auto) 1+ H NEGATIVE Urine RBC 0-2 /HPF Urine WBC 10-25 H /HPF Urine Squamous Epithelial Cells 2-5 /HPF Urine Crystals NONE /LPF Urine Bacteria LARGE H /HPF Urine Casts NONE /LPF Urine Mucus NEGATIVE /LPF Urine Culture Indicated YES Urine Opiates Screen NEGATIVE NEGATIVE Urine Oxycodone Screen POSITIVE H NEGATIVE Urine Methadone Screen NEGATIVE NEGATIVE Urine Propoxyphene Screen NEGATIVE NEGATIVE Urine Barbiturates Screen NEGATIVE NEGATIVE Ur Tricyclic Antidepressants Screen NEGATIVE NEGATIVE Urine Phencyclidine Screen NEGATIVE NEGATIVE Urine Amphetamines Screen POSITIVE H NEGATIVE Urine Methamphetamines Screen POSITIVE H NEGATIVE Urine Benzodiazepines Screen POSITIVE H NEGATIVE Urine Cocaine Screen NEGATIVE NEGATIVE Urine Cannabinoids Screen NEGATIVE NEGATIVE White Blood Count 6.8 4.3-11.0 10^3/uL Red Blood Count 3.88 L 4.35-5.85 10^6/uL Hemoglobin 12.0 11.5-16.0 G/DL Hematocrit 35 35-52 % Mean Corpuscular Volume 91 80-99 FL Mean Corpuscular Hemoglobin 31 25-34 PG Mean Corpuscular Hemoglobin Concent 34 32-36 G/DL Red Cell Distribution Width 12.3 10.0-14.5 % Platelet Count 245 130-400 10^3/uL Mean Platelet Volume 8.5 7.4-10.4 FL Neutrophils (%) (Auto) 60 42-75 % Lymphocytes (%) (Auto) 28 12-44 % Monocytes (%) (Auto) 9 0-12 % Eosinophils (%) (Auto) 3 0-10 % Basophils (%) (Auto) 0 0-10 % Neutrophils # (Auto) 4.1 1.8-7.8 X 10^3 Lymphocytes # (Auto) 1.9 1.0-4.0 X 10^3 Monocytes # (Auto) 0.6 0.0-1.0 X 10^3 Eosinophils # (Auto) 0.2 0.0-0.3 10^3/uL Basophils # (Auto) 0.0 0.0-0.1 10^3/uL Sodium Level 140 135-145 MMOL/L Potassium Level 3.3 L 3.6-5.0 MMOL/L Chloride Level 107 98-107 MMOL/L Carbon Dioxide Level 24 21-32 MMOL/L Anion Gap 9 5-14 MMOL/L Blood Urea Nitrogen 14 7-18 MG/DL Creatinine 0.68 0.60-1.30 MG/DL Estimat Glomerular Filtration Rate > 60 BUN/Creatinine Ratio 21 Glucose Level 130 H 70-105 MG/DL Calcium Level 8.8 8.5-10.1 MG/DL Corrected Calcium 9.1 8.5-10.1 MG/DL Total Bilirubin 1.0 0.1-1.0 MG/DL Aspartate Amino Transf (AST/SGOT) 15 5-34 U/L Alanine Aminotransferase (ALT/SGPT) 13 0-55 U/L Alkaline Phosphatase 188 H 40-136 U/L Total Protein 6.0 L 6.4-8.2 GM/DL Albumin 3.6 3.2-4.5 GM/DL Salicylates Level < 5.0 L 5.0-20.0 MG/DL Acetaminophen Level < 10 L 10-30 UG/ML Serum Alcohol < 10 <10 MG/DL My Orders Orders - UMANG RIOS Ed Iv/Invasive Line Start (07/03/19 21:59) Ns Iv 1000 Ml (Sodium Chloride 0.9%) (07/03/19 21:59) Ua Culture If Indicated (07/03/19 21:59) Cbc With Automated Diff (07/03/19 21:59) Comprehensive Metabolic Panel (07/03/19 21:59) Alcohol (07/03/19 21:59) Drug Screen Stat (Urine) (07/03/19 21:59) Acetaminophen (07/03/19 21:59) Salicylate (07/03/19 21:59) Ekg Tracing (07/03/19 21:59) Ed Iv/Invasive Line Start (07/03/19 21:59) Urine Culture (07/03/19 22:10) Ciprofloxacin Iv 400mg/200ml (Cipro Iv S (07/03/19 22:45) Medications Given in ED Current Medications Medications Dose Ordered Sig/Jeanne Route Start Time Stop Time Status Last Admin Dose Admin Ciprofloxacin/ Dextrose 200 ml @ 200 mls/hr ONCE ONCE IV 07/03/19 22:45 07/03/19 23:44 DC 07/03/19 23:11 200 MLS/HR Vital Signs/I&O 07/03/19 22:10 Temp 36.2 Pulse 81 Resp 18 B/P (MAP) 120/81 (94) Pulse Ox 93 O2 Delivery Room Air Progress Progress Note #1: Time: 23:33 Progress Note Numerous mildly fluids, ciprofloxacin and will watch her until she wakes up. She 's got be more than a couple hours and we may observe her. She'll answer if you wake her but she is very drowsy and does not have anybody to take her home. With the potential amount of opiates she could've taken we'll keep her on end-tidal CO2 to make sure that she's not going to become respiratory depressed. Progress Note #2: Time: 00:33 Progress Note End-tidal CO2 has been stable in the upper 30s since she's been here. She's gotten down to the bathroom she is rolled over on her own she is GCS 14 answering and easily awoken with verbal only. We are going to allow her to go home now that she's received her antibiotics. Initial ECG Impression Date: Jul 03, 2019 Initial ECG Impression Time: 23:16 Initial ECG Rate: 73 Initial ECG Rhythm: Normal Sinus Initial ECG Intervals: TX (232) Initial ECG Impression: 1st Degree AV Block Comment Sinus rhythm without ST elevation or depression. First-degree AV block. Departure Impression Primary Impression: UTI (urinary tract infection) Qualified Codes: N30.00 - Acute cystitis without hematuria Additional Impressions: Opiate abuse, continuous Methamphetamine abuse Benzodiazepine abuse Disposition: 01 HOME, SELF-CARE Condition: Stable Departure-Patient Inst. Decision time for Depature: 00:35 Referrals: DON NAVA,LOCAL PHYSICIAN (PCP) Primary Care Physician Patient Instructions: ALCOHOL AND SUBSTANCE ABUSE, Prescription Drug Misuse, Urinary Tract Infection, Adult (DC) Add. 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 Drink plenty of fluids. Follow-up with [facility] for outpatient drug addiction treatment. All discharge instructions reviewed with patient and/or family. Voiced underst anding. Scripts Ciprofloxacin HCl (Ciprofloxacin HCl) 500 Mg Tablet 500 MG PO BID for 5 Days, #10 TAB 0 Refills Prov: UMANG RIOS 07/04/19 UMANG RIOS Jul 03, 2019 22:08
[2019-07-03 22:17] LABS: BILIRUBIN,URINE NEGATIVE (NEGATIVE); CLARITY,URINE SLIGHTLY CLOUDY; COLOR,URINE YELLOW; GLUCOSE, URINE (UA) NEGATIVE (NEGATIVE); KETONES,URINE NEGATIVE (NEGATIVE); LEUKOCYTE ESTERASE ,URINE 2+ (NEGATIVE); NITRITE,URINE POSITIVE (NEGATIVE); PH,URINE 5 (5-9); PROTEIN,URINE NEGATIVE (NEGATIVE); UROBILINOGEN,URINE NORMAL (NORMAL)
[2019-07-03 22:24] LABS: BACTERIA,URINE LARGE /HPF; RBC,URINE 0-2 /HPF
[2019-07-03 22:29] LABS: AMPHETAMINE SCREEN, URINE POSITIVE (NEGATIVE); BARBITURATE SCREEN URINE NEGATIVE (NEGATIVE); BENZODIAZEPINES SCREEN URINE POSITIVE (NEGATIVE); CANNABINOID SCREEN, URINE NEGATIVE (NEGATIVE); COCAINE SCREEN URINE NEGATIVE (NEGATIVE); METHADONE STAT NEGATIVE (NEGATIVE); METHAMPHETAMINE SCREEN URINE S POSITIVE (NEGATIVE); OPIATE SCREEN URINE NEGATIVE (NEGATIVE); OXYCODONE STAT POSITIVE (NEGATIVE); PROPOXYPHENE STAT NEGATIVE (NEGATIVE); TRICYCLIC ANTIDEPRESSANTS SCRE NEGATIVE (NEGATIVE)
[2019-07-03] MEDS ORDERED: CIPROFLOXACIN IV 400MG/200ML 200 ML IV ONE (22:45)
[2019-07-03 22:48] LABS: BASOPHILS % (AUTO) 0 % (0-10); EOSINOPHILS # (AUTO) 0.2 10^3/uL (0.0-0.3); EOSINOPHILS % (AUTO) 3 % (0-10); HEMATOCRIT 35 % (35-52); LYMPHOCYTES # (AUTO) 1.9 X 10^3 (1.0-4.0); LYMPHOCYTES % (AUTO) 28 % (12-44); MEAN CORPUSCULAR HEMOGLOBIN 31 PG (25-34); MEAN CORPUSCULAR HGB CONC 34 G/DL (32-36); MEAN CORPUSCULAR VOLUME 91 FL (80-99); MEAN PLATELET VOLUME 8.5 FL (7.4-10.4); MONOCYTES # (AUTO) 0.6 X 10^3 (0.0-1.0); MONOCYTES % (AUTO) 9 % (0-12); NEUTROPHILS # (AUTO) 4.1 X 10^3 (1.8-7.8); NEUTROPHILS % (AUTO) 60 % (42-75); PLATELET COUNT 245 10^3/uL (130-400); RED CELL DISTRIBUTION WIDTH 12.3 % (10.0-14.5); WHITE BLOOD COUNT 6.8 10^3/uL (4.3-11.0)
[2019-07-03 23:07] LABS: ALANINE AMINOTRANSFERASE 13 U/L (0-55); ALBUMIN 3.6 GM/DL (3.2-4.5); ALKALINE PHOSPHATASE 188 U/L (40-136); BUN/CREATININE RATIO 21; CALCIUM 8.8 MG/DL (8.5-10.1); CARBON DIOXIDE 24 MMOL/L (21-32); CHLORIDE 107 MMOL/L (98-107); CREATININE SERUM 0.68 MG/DL (0.60-1.30); GFR ESTIMATED > 60; GLUCOSE 130 MG/DL (70-105); POTASSIUM 3.3 MMOL/L (3.6-5.0); SALICYLATE < 5.0 MG/DL (5.0-20.0); SODIUM 140 MMOL/L (135-145)
[2019-07-03 23:09] LABS: ACETAMINOPHEN < 10 UG/ML (10-30)
[2019-07-04] MEDS ORDERED: CIPR500T4 PO (00:37)
[2019-07-04 00:40] VITALS: BP 121/68
== END 2019-07-04 00:45 | disposition home or self-care (01) ==
LOC: EDUNIT# 21:52 → ER 21:53
DX: N39.0 Urinary tract infection, site not specified (principal); F11.10 Opioid abuse, uncomplicated; F15.10 Other stimulant abuse, uncomplicated; F13.10 Sedative, hypnotic or anxiolytic abuse, uncomplicated; I10 Essential (primary) hypertension; J45.909 Unspecified asthma, uncomplicated; K21.9 Gastro-esophageal reflux disease without esophagitis; F41.9 Anxiety disorder, unspecified; F32.9 Major depressive disorder, single episode, unspecified; F17.210 Nicotine dependence, cigarettes, uncomplicated; Z85.820 Personal history of malignant melanoma of skin; Z85.51 Personal history of malignant neoplasm of bladder; Z86.718 Personal history of other venous thrombosis and embolism; Z87.442 Personal history of urinary calculi; Z90.710 Acquired absence of both cervix and uterus; Z90.49 Acquired absence of other specified parts of digestive tract; Z88.0 Allergy status to penicillin; Z88.1 Allergy status to other antibiotic agents; Z88.2 Allergy status to sulfonamides; Z88.8 Allergy status to other drugs, medicaments and biological substances; Z79.01 Long term (current) use of anticoagulants
CPT/HCPCS: 36415; 80053; 80306; 80320; 80329; 81000; 85025; 87077; 87088; 87184; 87186; 93005; 96365

== ENCOUNTER 2019-12-09 13:53 | Emergency (ER) | payer MEDICARE, MEDICAID ==
[~2019-12-09] VITALS: Ht 165 cm; Wt 90.0 kg
[~2019-12-09 13:53] MED LIST changes: +CIPR500T4 PO; +OMEP40CA27 PO; -OMEP40CA36 PO; -TRAZ-190 PO; +TRAZ-227 PO
--- NOTE | 2019-12-09 14:15 | NUR ---
THE PT STATES THE SHE WAS BIT BY A DOG NINE DAY'S AGO. THERE IS A SMALL LACERATION TO HER LEFT HAND THAT IS HEALING. THERE ARE NO VISIBLE SX OF INFECTIN TO THE AREA. THERE IS SOME PAIN WITH MOVEMENT TO THE WRIST AND HAND. THE PT SEEMS ADJITATED TO BE HERE. THE PT STATES THAT LAW ENFORCEMENT IS INFORMED.
[2019-12-09] MEDS ORDERED: CLIN300C11 PO (14:25)
--- NOTE | 2019-12-09 14:28 | ED Integumentary General ---
General Chief Complaint: Bite-Animal/Human/Insect Stated Complaint: DOG BITE Nursing Triage Note: PT ARRIVAL BY EMS. NO DISTRESS IS SEEN ON ARRIVAL. LOC IS NORMAL FOR THE PT. SMALL SKIN LACERATION TO THE LEFT HAND. NO ACTIVE BLEEDING IS SEEN ON ARRIVAL. LAW ENFORCEMENT IS ON THE SCENE. Source: patient Exam Limitations: no limitations History of Present Illness Date Seen by Provider: Dec 09, 2019 Time Seen by Provider: 14:23 Initial Comments 59-year-old female patient presents via EMS with complaints of the dog bite 9 days ago to the left hand. Patient states she was trying to break up a dog fight between her neighbors to dogs. She states the pain at the wound site yesterday and today has been "unbearable because I ran out of my pain medicine 2 wks ago." She states motrin "is not cutting it". She states she hasn't been able to go to her primary care provider's office in [place], [place] due to transportation issues. She states the dog that bit her is up-to-date on rabies vaccinations. She states she is up-to-date on tetanus is in the last 5 years. Denies fever, chills, sweats, numbness, tingling, redness of the wound, or drainage from the wound. Location Injury Occurred: outside the patient's apartment Timing/Duration: other (9 day onset) Location: hands (left hand) Possible Cause: other (dog bite) Modifying Factors: worse with other (worse with palpation) Allergies and Home Medications Allergies Coded Allergies: Penicillins (Verified Allergy, Unknown, 07/16/17) cefaclor (Verified Allergy, Unknown, 06/20/16) hydroxyzine (Verified Allergy, Unknown, 06/20/16) prochlorperazine (Verified Allergy, Unknown, 06/20/16) sulfamethoxazole (Verified Allergy, Unknown, 06/20/16) trimethoprim (Verified Allergy, Unknown, 06/20/16) Home Medications Apixaban 5 Mg Tablet, 5 MG PO BID, (Reported) Carvedilol 12.5 Mg Tablet, 12.5 MG PO BID, (Reported) Ciprofloxacin HCl 500 Mg Tablet, 500 MG PO BID Prescribed by: UMANG RIOS on 07/04/19 0037 Clindamycin HCl 300 Mg Capsule, 300 MG PO QID Prescribed by: TINO MURPHY on 12/09/19 1425 Nitrofurantoin Monohyd/M-Cryst 100 Mg Capsule, 1 TAB PO BID Prescribed by: JD SNOW on 02/28/17 2309 Omeprazole Magnesium 20 Mg Tablet.dr, 40 MG PO DAILY, (Reported) Ondansetron 4 Mg Tab.rapdis, 4 MG PO Q4H PRN for NAUSEA/VOMITING-1ST LINE, (Reported) Patient Home Medication List Home Medication List Reviewed: Yes Review of Systems Review of Systems Constitutional: No chills, No diaphoresis, No fever, No malaise EENTM: no symptoms reported Respiratory: no symptoms reported Cardiovascular: no symptoms reported Gastrointestinal: no symptoms reported Musculoskeletal: see HPI, joint pain (left hand and forearm pain beginning yesterday) Skin: see HPI Psychiatric/Neurological: Denies Numbness, Denies Paresthesia, Denies Tingling, Denies Weakness All Other Systems Reviewed Negative Unless Noted: Yes (Negative excepted noted.) Past Emdyich-Cnmfro-Blcwaj Hx Past Med/Social Hx: Reviewed Nursing Past Med/Soc Hx Patient Social History Alcohol Beverage of Choice: Beer Drug of Choice: recreational opiates, benzos, methamphetamines Type Used: Cigarettes 2nd Hand Smoke Exposure: Yes Recent Foreign Travel: No Contact w/Someone Who Travel: No Recent Infectious Disease Expo: No Recent Hopitalizations: No (SHOULDER REPLACEMENT) Physical Abuse: No Sexual Abuse: No Mistreated: No Fear: No Immunizations Up To Date Tetanus Booster (TDap): Less than 5yrs Date of Pneumonia Vaccine: Oct 04, 2010 Seasonal Allergies Seasonal Allergies: Yes Past Medical History Surgeries: Yes (BI LAT SHOULDERS, RT KNEE, CEA, LIPOMA, LT ANKLE) Appendectomy, Gallbladder, Hysterectomy, Orthopedic Respiratory: Yes Asthma, Chronic Bronchitis Cardiac: Yes Deep Vein Thrombosis, Hypertension Neurological: No 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 Genitourinary: Yes UTI-Chronic Gastrointestinal: Yes Gastroesophageal Reflux, Liver Disease/Jaundice Musculoskeletal: Yes (meniscus tear left knee) Endocrine: No Cancer: Yes Bladder, Melanoma Psychosocial: Yes Anxiety, Depression Integumentary: No Blood Disorders: No (4 DVT'S) Adverse Reaction/Blood Tranf: No Family Medical History Reviewed Nursing Family Hx No Pertinent Family Hx Physical Exam Vital Signs Vital Signs - First Documented 12/09/19 12/09/19 13:59 14:45 Temp 36.5 Pulse 18 Resp 18 B/P (MAP) 164/84 (110) Pulse Ox 99 Capillary Refill : Less Than 3 Seconds General Appearance: WD/WN, no apparent distress Cardiovascular: normal peripheral pulses, no edema Extremities: normal range of motion, normal capillary refill, other (a 0.5 cm scabbed wound to the left palmar hand (see images). No evidence of cellulitis, swelling, or drainage noted. Soft tissue tenderness noted at the wound site.) Neurologic/Psychiatric: no motor/sensory deficits, alert, normal mood/affect, oriented x 3 Skin: normal color, warm/dry, other (a 0.5 cm scabbed wound to the left palmar hand (see images). No evidence of cellulitis, swelling, or drainage noted. Soft tissue tenderness noted at the wound site.) Procedures/Interventions Date of ETT Placement: Nov 20, 2017 Time of ETT Placement: 731 Suture Size: 5-0 Progress/Results/Core Measures Results/Orders My Orders Orders - TINO MURPHY Acetaminophen Tablet (Tylenol Tablet) (12/09/19 14:29) Vital Signs/I&O 12/09/19 12/09/19 13:59 14:45 Temp 36.5 36.5 Pulse 18 70 Resp 18 B/P (MAP) 164/84 (110) 160/80 Pulse Ox 99 Blood Pressure Mean: 110 Departure Communication (Admissions) Patient seen and evaluated. Wound shows no evidence of cellulitis or swelling. No deformity or bony tenderness of the left hand. I did escribe prophylactic cleocin to [facility] [employer] for the dog bite. I've instructed the patient to contact her primary care provider's office in [place], [place] for all pain medication refills. Patient was offered Tylenol 1000 mg in the emergency department, but patient refused medication. Patient was discharged to home. Impression Primary Impression: Dog bite Qualified Codes: W54.0XXA - Bitten by dog, initial encounter Disposition: HOME, SELF-CARE Condition: Improved Departure-Patient Inst. Decision time for Depature: 14:23 Referrals: NO,LOCAL PHYSICIAN (PCP/Family) Primary Care Physician Patient Instructions: Animal Bites (DC) Add. Discharge Instructions: All discharge instructions reviewed with patient and/or family. Voiced understanding. Medications as instructed. Tylenol Extra Strength [id number] as directed for pain. Ibuprofen 600 mg by mouth every 6-8 hours as needed for pain. Contact your primary care provider for a refill of your oxycodone or hydrocodone. Elevate the hand on pillows. Ice pack for 20 minute intervals as needed for pain. Shower with antibacterial soap. Follow-up with your primary care provider for recheck as an outpatient. Return to the emergency department for worsened symptoms or any other concerns. Scripts Clindamycin HCl (Clindamycin HCl) 300 Mg Capsule 300 MG PO QID for 7 Days, #28 CAP 0 Refills Prov: TINO MURPHY 12/09/19 Images Extremities-Upper 1 - Other-See Progress Note TINO MURPHY Dec 09, 2019 14:28
[2019-12-09] MEDS ORDERED: ACETAMINOPHEN 500 MG TAB (TYLENOL) PO STA (14:29)
--- NOTE | 2019-12-09 14:38 | NUR ---
THE PT REFUSED THE TYLENOL AND LEFT THE PROPERTY.
[2019-12-09 14:45] VITALS: BP 160/80
--- OUTSIDE RECORDS SUMMARY | 2019-12-13 01:15 | XMS REPORT ---
Author Author [facility] Organization [facility] Address [address] [address] Care Team Providers Care Thread Puller Name Role Phone NO, LOCAL PHYSICIAN Unavailable Unavailable [facility] Unavailable [phone] ROSEMARY, MAURO Unavailable Unavailable ROSEMARY, MAURO Unavailable MAXIMILIANO BARKER Unavailable Unavailable BENJAMIN MARTIN, ANNIE Evans Unavailable Unavailable LANE SRINIVASAN DO Unavailable Unavailable RAGINI BARRY, GOPI Evans Unavailable Unavailable MARY BARRY, REUBEN Evans Unavailable Unavailable JEFFREY LYNCH, TINO Jordan Unavailable Unavailable ELVIS MARTIN, GURPREET Wei Unavailable Unavailable EDY MARTIN, JD Mcdonnell Unavailable Unavailable VENICE MARTIN, ANNABELLE Garza Unavailable Unavailable HARMEET JEAN-BAPTISTE Unavailable Unavailable HARMEET JEAN-BAPTISTE Unavailable Unavailable HARMEET JEAN-BAPTISTE Unavailable Unavailable Allergies Normalized Allergy Reported Date of Reaction(s) Care Provider Facility Allergy Type classification allergen Allergy Onset Drug Allergy Opioid fentaNYL UNKNOWN HARMEET JEAN-BAPTISTE Not Availa ble (4 sources.) Agonists (17370) Drug Allergy Sulfonamides Sulfamethoxazo 06-20-2016 - UNKNOWN GOPI EID Not Available (24 sources.) (antibiotic) DO susan (33221) Translations: [ SULFA (SULFONAMIDE ANTIBIOTICS)] Medications Medication Ingredient Drug Dose Dates Status Sig Sig Care Class(es) (Normalized) (Original) Provid er no Ondansetron Serotonin-3 4 mg 10-08-19 no no no no information Receptor 17 - informat information information name (1 source.) Antagonist 10-15-19 ion (no 17 phone) Problems Active Problems Problem Normalized Date of Normalized Normalized Provider Fac ility Classification Problem(s) Problem Problem Problem Sta tus Onset/Resoluti Duration on Esophageal Gastro-esophag Chronic Active TINO Not Av ailable disorders (6 eal reflux SYED MURPHY (14990) sources.) disease without esophagitis Spondylosis; Low back pain no information Active MAXIMILIANO BARKER Not Available intervertebral Translations: (14144) disc [ OTHER disorders; CERVICAL DISC other back DEGENERATION, problems (11 UNSP C] sources.) Substance-rela Nicotine Chronic Active TINO Not Avai lable sixto disorders dependence, SYED MURPHY (62904) (21 sources.) cigarettes, uncomplicated Osteoarthritis Primary Chronic Active GURPREET LEAL , Not Available (14 sources.) osteoarthritis (13488) , left shoulder Past or Other Problems Problem Normalized Date of Normalized Normalized Provider Fac ility Classification Problem(s) Problem Problem Problem Sta tus Onset/Resoluti Duration on Other Abnormal Episodic Completed TINO Not Available screening for results of SYED MURPHY (35912) suspected thyroid conditions function (not mental studies disorders or infectious disease) (6 sources.) Residual Acquired Episodic Completed JD SNOW , Not Avai lable codes; absence of (74290) unclassified both cervix (3 sources.) and uterus Other Disorders of Episodic Completed HARMEET JEAN-BAPTISTE Not Avail able connective bursae and (51397) tissue disease tendons in (3 sources.) shoulder region, unspecified External cause Fall (on) no information no information MAXIMILIANO MJ Not Available codes: Fall (6 (from) (67850) sources.) unspecified stairs and steps, initial encounter Other Incomplete Episodic Completed LANE Not Availab le connective rotator cuff ZARINA , DO (18304) tissue disease tear or (8 sources.) rupture of left shoulder, not specified as traumatic Other detention Episodic Completed MAXIMILIANO MJ Not Availabl e aftercare (6 (current) use (13259) sources.) of opiate analgesic Nausea and Nausea with Episodic Completed ANNABELLE Not Avail able vomiting (10 vomiting, VENICE , (66387) sources.) unspecified MD Other nervous Other acute Episodic Completed TINO Not Av ailable system postprocedural SYED MURPHY (87399) disorders (17 pain sources.) External cause Other external no information no information MAXIMILIANO MJ Not Available codes: cause status (03885) Unspecified (6 sources.) Other Other long Episodic Completed GURPREET LEAL , Not Av ailable aftercare (20 term (current) (10304) sources.) drug therapy Other Pain in left Episodic Completed GURPREET LEAL , Not Available non-traumatic shoulder (30860) joint disorders (6 sources.) Other Pain in right Episodic Completed ANNIE Not Avai lable connective lower leg MD BENJAMIN (23896) tissue disease (14 sources.) Residual Procedure and Episodic Completed HARMEET ESTIVEN Not Avai lable codes; treatment not (60302) unclassified carried out (2 sources.) because of other contraindicati on Residual Procedure and Episodic Completed ANNIE Not Avai lable codes; treatment not MD BENJAMIN (29648) unclassified carried out (7 sources.) due to patient leaving prior to being seen by health care provider Sprains and Strain of Episodic Completed MAXIMILIANO MJ Not Availa ble strains (6 muscle, fascia (23950) sources.) and tendon of lower back, initial encounter Residual Surgical or Episodic Completed HARMEET ESTIVEN Not Availa ble codes; other (98542) unclassified procedure not (2 sources.) carried out because of contraindicati on Other Unspecified Episodic Completed HARMEET ESTIVEN Not Availa ble connective rotator cuff (70455) tissue disease tear or (3 sources.) rupture of right shoulder, not specified as traumatic Procedures The data below is from unstructured sourcesNo known history of procedures.No known history of procedures.No known history of procedures.No known history of procedures.No known history of procedures.No kn own history of procedures.No known history of procedures. Immunizations The data below is from unstructured sourcesNo immunization records.No immunization records.No immunization records.No immunization records.No immunization records. No Known Immunizations No Known ImmunizationsNo immunization records.No immunization records.No immunization records.No immunization records. Results The data below is from unstructured sourcesNo known relevant diagnostic tests, laboratory data and/or discharge summary.No known relevant diagnostic tests, laboratory data and/or discharge summary.No known relevant diagnostic tests, laboratory data and/or discharge summary. Vital Signs The data below is from unstructured sources Vital Response Date/Time Temperature (Fahrenheit) 97.2 degree s F (97.6 - 99.5) 05/20/2016 5:00pm Temperature (Calculated Celsius) 36. 71796 degrees C (36.4 - 37.5) 05/20/2016 5:00pm Pulse Rate (adult) 77 bpm (60 - 90) 05/20/2016 7:34pm Respiratory Rate 20 bpm (12 - 24) 05/20/2016 7:34pm O2 Sat by Pulse Oximetry 99 % (88 - 100) 05/20/2016 7:34pm Blood Pressure 162/97 mm Hg 05/20/2016 7:34pm Blood Pressure Mean 121 mm Hg 05/20/2016 5:00pm Pain Numeric Pain Scale 3 7:35pm Height (Feet) 5 feet 5:00pm Height (Inches) 7 inches 05/20/2016 5:00pm Height (Calculated Centimeters) 170. 455366 cm 05/20/2016 5:00pm Weight (Pounds) 200 pounds 05/20/2016 5:00pm Weight (Calculated Kilograms) 90.718 475 kilograms 05/20/2016 5:00pm Capillary Refill Capillary Refill Less Than 3 Seconds 05/20/2016 5:00pm Height 5 ft 7 in Weight 200 lb Body Mass Index 31.3 kg/m^2 Vital Response Date/Time Temperature (Fahrenheit) 97.4 degree s F (97.6 - 99.5) 05/26/2016 1:53pm Temperature (Calculated Celsius) 36. 29005 degrees C (36.4 - 37.5) 05/26/2016 1:53pm Temperature Source Temporal 05/26/2016 1:53pm Pulse Rate (adult) 63 bpm (60 - 90) 05/26/2016 11:50am Respiratory Rate 20 bpm (12 - 24) 05/26/2016 11:50am O2 Sat by Pulse Oximetry 98 % (88 - 100) 05/26/2016 11:50am Blood Pressure 178/113 mm Hg 05/26/2016 11:50am Blood Pressure Mean 134 mm Hg 05/26/2016 11:50am Pain Numeric Pain Scale 3 1:53pm Height (Feet) 5 feet 11:50am Height (Inches) 6 inches 05/26/2016 11:50am Height (Calculated Centimeters) 167. 082133 cm 05/26/2016 11:50am Weight (Pounds) 250 pounds 05/26/2016 11:50am Weight (Calculated Kilograms) 113.39 8094 kilograms 05/26/2016 11:50am Capillary Refill Capillary Refill Less Than 3 Seconds 05/26/2016 11:50am Height 5 ft 6 in Weight 250 lb Body Mass Index 40.4 kg/m^2 Vital Response Date/Time Temperature (Fahrenheit) 98.1 degree s F (97.6 - 99.5) 07/21/2016 5:00am Temperature (Calculated Celsius) 36. 72431 degrees C (36.4 - 37.5) 07/21/2016 5:00am Temperature Source Temporal 07/21/2016 5:00am Pulse Rate (adult) 69 bpm (60 - 90) 07/21/2016 5:00am Respiratory Rate 20 bpm (12 - 24) 07/21/2016 5:00am O2 Sat by Pulse Oximetry 96 % (88 - 100) 07/21/2016 5:00am Blood Pressure 159/102 mm Hg 07/21/2016 5:00am Blood Pressure Mean 121 mm Hg 07/21/2016 5:00am Pain Numeric Pain Scale 6 5:00am Height (Feet) 5 feet 5:00am Height (Inches) 6 inches 07/21/2016 5:00am Height (Calculated Centimeters) 167. 685983 cm 07/21/2016 5:00am Weight (Pounds) 220 pounds 07/21/2016 5:00am Weight (Calculated Kilograms) 99.790 322 kilograms 07/21/2016 5:00am Capillary Refill Capillary Refill Less Than 3 Seconds 07/21/2016 5:00am Height 5 ft 6 in Weight 220 lb Body Mass Index 35.5 kg/m^2 Vital Response Date/Time Temperature (Fahrenheit) 97 degrees F (97.6 - 99.5) 08/05/2016 11:08am Temperature (Calculated Celsius) 36. 1140 degrees C (36.4 - 37.5) 08/05/2016 11:08am Temperature Source Temporal 08/05/2016 11:08am Pulse Rate (adult) 62 bpm (60 - 90) 08/05/2016 11:08am Respiratory Rate 16 bpm (12 - 24) 08/05/2016 11:08am O2 Sat by Pulse Oximetry 96 % (88 - 100) 08/05/2016 11:08am Blood Pressure 148/70 mm Hg 08/05/2016 11:08am Blood Pressure Mean 96 mm Hg 08/05/2016 11:08am Pain Numeric Pain Scale 7 11:08am Height (Feet) 5 feet 11/2015 11:08am Height (Inches) 6 inches 08/05/2016 11:08am Height (Calculated Centimeters) 167. 429622 cm 08/05/2016 11:08am Weight (Pounds) 220 pounds 08/05/2016 11:08am Weight (Calculated Grams) 18648.322 gm 08/05/2016 11:08am Weight (Calculated Kilograms) 99.790 322 kilograms 08/05/2016 11:08am Capillary Refill Capillary Refill Less Than 3 Seconds 08/05/2016 11:08am Height 5 ft 6 in Weight 220 lb Body Mass Index 35.5 kg/m^2 Vital Response Date/Time Temperature (Fahrenheit) 97.5 degree s F (97.6 - 99.5) 11/14/2016 5:37pm Temperature (Calculated Celsius) 36. 87037 degrees C (36.4 - 37.5) 11/14/2016 5:37pm Temperature Source Temporal 11/14/2016 5:37pm Pulse Rate (adult) 70 bpm (60 - 90) 11/14/2016 4:50pm Respiratory Rate 18 bpm (12 - 24) 11/14/2016 4:50pm O2 Sat by Pulse Oximetry 98 % (88 - 100) 11/14/2016 4:50pm Blood Pressure 147/88 mm Hg 11/14/2016 4:50pm Blood Pressure Mean 107 mm Hg 11/14/2016 4:50pm Pain Numeric Pain Scale 6 5:37pm Height (Feet) 5 feet 08/2017 4:00pm Height (Inches) 8 inches 11/14/2016 4:00pm Height (Calculated Centimeters) 172. 067331 cm 11/14/2016 4:00pm Weight (Pounds) 220 pounds 11/14/2016 4:00pm Weight (Calculated Kilograms) 99.790 322 kilograms 11/14/2016 4:00pm Capillary Refill Capillary Refill Less Than 3 Seconds 11/14/2016 4:50pm Height 5 ft 8 in Weight 220 lb Body Mass Index 33.5 kg/m^2 Vital Response Date/Time Temperature (Fahrenheit) 97.5 degree s F (97.6 - 99.5) 11/14/2016 5:37pm Temperature (Calculated Celsius) 36. 37138 degrees C (36.4 - 37.5) 11/14/2016 5:37pm Temperature Source Temporal 11/14/2016 5:37pm Pulse Rate (adult) 70 bpm (60 - 90) 11/14/2016 4:50pm Respiratory Rate 18 bpm (12 - 24) 11/14/2016 4:50pm O2 Sat by Pulse Oximetry 98 % (88 - 100) 11/14/2016 4:50pm Blood Pressure 147/88 mm Hg 11/14/2016 4:50pm Blood Pressure Mean 107 mm Hg 11/14/2016 4:50pm Pain Numeric Pain Scale 6 5:37pm Height (Feet) 5 feet 08/2017 4:00pm Height (Inches) 8 inches 11/14/2016 4:00pm Height (Calculated Centimeters) 172. 183809 cm 11/14/2016 4:00pm Weight (Pounds) 220 pounds 11/14/2016 4:00pm Weight (Calculated Kilograms) 99.790 322 kilograms 11/14/2016 4:00pm Capillary Refill Capillary Refill Less Than 3 Seconds 11/14/2016 4:50pm Height 5 ft 8 in Weight 220 lb Body Mass Index 33.5 kg/m^2 Interventions No Information Plan of Treatment The data below is from unstructured sources Discharge Date 05/20/16 7:36pm Disposition 01 HOME, SELF-CARE Condition at Discharge Improved Instructions/Education Provided Acut e Abdominal Pain (ED) Forms Provided Local Medical Staff L isting Prescriptions See Medication Section Referrals NO,LOCAL PHYSICIAN - [facility] Physician Additional Instructions/Education Al l discharge instructions reviewed with patient and/or family. Voiced understanding.medications as instructed. Continue usual home medications. Drink plenty of fluids. Follow-up with the family practitioner of choice for recheck, call for appointment time. Return to the emergency department for worsened pain, fever, vomiting, inability to urinate, painful urination, blood in the urine, or any other concerns. Discharge Date 05/26/16 1:55pm Disposition 01 HOME, SELF-CARE Condition at Discharge Improved Instructions/Education Provided Stre ss (ED) Generalized Anxiety Disorder (ED) Prescriptions See Medication Section Referrals NO,LOCAL PHYSICIAN - [facility] Physician [facility] - Additional Instructions/Education Al l discharge instructions reviewed with patient and/or family. Voiced understanding. Continue usual home medications. Do not use more than 800 mg of ibuprofen every 8 hours as needed for pain or headache. Follow-up with your family practitioner as previously scheduled to establish care and for further evaluation. Also discussed repeating thyroid testing with your family practitioner. Return to the emergency department for worsened symptoms or any other concerns. Discharge Date 07/21/16 5:36am Disposition 01 HOME, SELF-CARE Condition at Discharge Stable Instructions/Education Provided NO I NSTRUCTIONS GIVEN Prescriptions See Medication Section Referrals CECELIA NICHOLSON DO - REUBEN HERNANDEZ DO - Additional Instructions/Education Al l discharge instructions reviewed with patient and/or family. Voiced understanding. RECOMMEND CALLING ONE OF THE SURGEONS LISTED THIS AM, 07/21, TO ARRANGE FOLLOW EVALUATION AND CARE OF YOUR PRESENTING COMPLAINTS. RECOMMEND CONTINUING 800 mg OF IBUPROFEN EVERY 8 HOURS @ THIS TIME. Discharge Date 08/05/16 1:00pm Disposition 07 AGAINST MEDICAL ADVIC E Condition at Discharge Improved Prescriptions See Medication Section Referrals [facility] - Primary Care Physician Discharge Date 11/14/16 6:15pm Disposition 01 HOME, SELF-CARE Condition at Discharge Stable Instructions/Education Provided Low Back Pain (DC) Prescriptions See Medication Section Referrals NO,LOCAL PHYSICIAN - [facility] Physician Additional Instructions/Education Al l discharge instructions reviewed with patient and/or family. Voiced understanding. Gentle range of motion for lumbar spine. Keep appointment with orthopedics for shoulders next week. Return to emergency department for increased pain or change in symptoms. Discharge Date 11/14/16 6:15pm Disposition 01 HOME, SELF-CARE Condition at Discharge Stable Instructions/Education Provided Low Back Pain (DC) Prescriptions See Medication Section Referrals NO,LOCAL PHYSICIAN - [facility] Physician Additional Instructions/Education Al l discharge instructions reviewed with patient and/or family. Voiced understanding. Gentle range of motion for lumbar spine. Keep appointment with orthopedics for shoulders next week. Return to emergency department for increased pain or change in symptoms. Goals No Information Social History No Information Functional Status The data below is from unstructured sourcesNo functional status results.No functional status results.No functional status results.No functional status results.No functional status results.No functional status results.No functional status results.No functional status results.No functional status results. Mental Status No Information Encounters Encounter Normalized Encounter Encounter Diagnosis Care Provi madyson Organization Date Type 02-28-2017 Emergency department no information no name (no nataliya ne) no organization name - patient visit (no phone) 03-01-2017 01-11-2017 Emergency department no information no name (no nataliya ne) no organization name - patient visit (no phone) 01-11-2017 01-09-2017 Emergency department no information no name (no nataliya ne) no organization name - patient visit (no phone) 01-09-2017 06-20-2016 Emergency department no information no name (no nataliya ne) no organization name - patient visit (no phone) 06-20-2016 12-29-2016 Patient encounter no information no name (no phone) no organization name procedure (no phone) 10-08-2016 Patient encounter no information no name (no phone) no organization name - procedure (no phone) 10-08-2016 Medical Equipment No Information Payers Normalized Payer Value Medicare no information Advance Directives Directive Response Recor ded Date/Time Advance Directives No 5:47pm Resuscitation Status Full Code 05/20/16 5:47pm Directive Response Recor ded Date/Time Advance Directives No 11:50am Resuscitation Status Full Code 05/26/16 11:50am Directive Response Recor ded Date/Time Advance Directives No 5:00am Health Care Power of Ota No 07/21/16 5:00am Organ Donor No 07/21/16 5:00am Resuscitation Status Full Code 07/21/16 5:00am Directive Response Recor ded Date/Time Advance Directives No 11:08am Health Care Power of Ota No 08/05/16 11:08am Organ Donor No 08/05/16 11:08am Resuscitation Status Full Code 08/05/16 11:08am Directive Response Recor ded Date/Time Advance Directives No 4:23pm Health Care Power of Ota No 11/14/16 4:23pm Organ Donor No 11/14/16 4:23pm Resuscitation Status Full Code 11/14/16 4:23pm Discharge Instructions No hospital discharge instructions.No hospital discharge instructions.No hospital discharge instructions.No hospital discharge instructions.No hospital discharge instructions. Summary Purpose eClinicalWorks Submission Additional Source Comments This clinical document has been generated using [employer] software that has been certified by the Office of the National Coordinator for Health Information Technology (ONC 15.99.04.3023.Diam.31.00.0.654554) and the National Committee for Ballistics Professor (NCQA, as an eMeasure certified technology). FOR RECORDS PERTAINING TO PATIENTS WHO ARE OR HAVE BEEN ENROLLED IN A CHEMICAL D EPENDENCY/SUBSTANCE ABUSE PROGRAM, SOME INFORMATION MAY BE OMITTED. This clinica l summary was aggregated from multiple sources. Caution should be exercised in using it in the provision of clinical care. This summary normalizes information from multiple sources, and as a consequence, information in this document may ma terially change the coding, format and clinical context of patient data. In gennaro tion, data may be omitted in some cases. CLINICAL DECISIONS SHOULD BE BASED ON T HE PRIMARY CLINICAL RECORDS. [facility] [employer] [facility]. provides no warranty or guara ntee of the accuracy or completeness of information in this document.The followi information is based on time limited clinical information
--- OUTSIDE RECORDS SUMMARY | 2019-12-13 01:15 | XMS REPORT | Clinical Summary ---
Author Author [facility] Organization [facility] Address Unknown Phone Unavailable Care Team Providers Care Hand Buffing Wheel Former Name Role Phone Angelica Albrecht DATA SUPPORT SPECIALIST Unavailable Davian Nicole DATA SUPPORT SPECIALIST Unavailable Unavailable [place] DO Unavailable Deandra Diaz DO PCP Source Comments Some departments are not documenting in the electronic medical record. If you d o not see the information that you expected, contact Release of Information in [facility] Information Management department at [phone] for further assistan ce in locating additional records.[facility] Allergies Comments Active Allergy Reactions Severity Noted Date Hydroxyzine Hcl DYSTONIA 05/30/2011 Sulfamethoxazole-Trimetho HIVES 05/30/2011 prim Cefaclor HIVES 05/30/2011 Prochlorperazine DYSTONIA 05/30/2011 Penicillins HIVES 05/30/2011 "Titanium-surgical steel = osteomyelitis" Titanium SEE COMMENTS 05/30/2011 "Liver problems" Acetaminophen SEE COMMENTS 05/30/2011 Rofecoxib HIVES 05/30/2011 Medications End Date Status Medication Sig Dispensed Refills Start Date Active carvedilol (COREG) 12.5 Take 25 mg by 0 mg tablet mouth twice daily with meals. Active ARIPiprazole (ABILIFY) 5 Take 5 mg by 0 mg tablet mouth daily. Active traMADol (ULTRAM) 50 mg Take 1 Tab by 30 Tab 0 tablet mouth every 6 3 hours as needed for Pain. Active levofloxacin (LEVAQUIN) Take 500 mg 0 500 mg tablet by mouth daily. Active oxyCODONE (ROXICODONE) 5 Take 1 Tab by 10 Tab 0 05/13/201 mg tablet mouth every 4 4 hours as needed for Pain Active lisinopril (PRINIVIL; Take 10 mg by 0 ZESTRIL) 10 mg tablet mouth daily. Active naproxen (NAPROSYN) 500 Take 500 mg 0 mg tablet by mouth twice daily with meals. Take with food. Active Problems Problem Noted Date Elevated blood sugar 06/08/2013 Hypertension 06/08/2013 Obesity 06/08/2013 At risk for diabetes mellitus 06/08/2013 Social History Date Tobacco Use Types Packs/Day Years Used Current Every Day Smoker Cigarettes 1 Smokeless Tobacco: Never Used Drinks/Week oz/Week Comments Alcohol Use No Sex Assigned at Date Recorded Not on file Industry Job Start Date Occupation Not on file Not on file Not on file Travel End Travel History Travel Start No recent travel history available. Last Filed Vital Signs Reading Time Taken Comments Vital Sign 122/70 08/03/2019 11:28 AM CDT Blood Pressure 85 08/03/2019 11:28 AM CDT Pulse 36.7 C (98.1 F) 12/06/2016 1:37 AM MEDICARE INTERVIEWER Temperature 18 08/03/2019 11:28 AM CDT Respiratory Rate 100% 08/03/2019 11:28 AM CDT Oxygen Saturation - - Inhaled Oxygen Concentration 88.5 kg (195 lb) 08/03/2019 11:28 AM CDT Weight 167.6 cm (5' 6") 08/03/2019 11:28 AM CDT Height 31.47 08/03/2019 11:28 AM CDT Body Mass Index Plan of Treatment Health Maintenance Due Date Last Done Comments HEPATITIS C SCREENING 1959 MEDICARE ANNUAL WELLNESS 1959 VISIT DTAP/TDAP VACCINES ( - 1970 Tdap) HIV SCREENING 1974 DILATED EYE EXAM 1977 FOOT EXAM 1977 HBA1C 1977 PHYSICAL (COMPREHENSIVE) 1977 EXAM PNEUMONIA VACCINE (DM) 1977 CERVICAL CANCER SCREENING 1989 BREAST CANCER SCREENING 1999 COLORECTAL CANCER 2009 SCREENING SHINGLES RECOMBINANT 2009 VACCINE (1 of 2) INFLUENZA VACCINE 05/04/2019 Results Not on filefrom Last 3 Months Insurance Type Payer Benefit Subscriber ID Effective Phone Address Plan / Dates Group Medicare MEDICARE MEDICARE xxxxxxxxxxx [id number] PART A AND resent B Advance Directives Patient Treasurer Explanation Type Date Recorded Advance 05/13/2014 12:59 PM Directive/DPOA
--- OUTSIDE RECORDS SUMMARY | 2019-12-13 01:15 | XMS REPORT | Encounter Summary ---
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 Pain * (Routine) Referred By Contact Referred To Contact Status Reason Specialty Diagnoses / Procedures Pending Review Encounter Details Care Team Description Date Type Department Gaudencio Fonseca MD [address] [place], [place] [id number] Post-traumatic osteoarthritis of left kn ee (Primary Dx); Chronic intractable pain; Complex regional pain syndrome type 2 of left lower extremity; Chronic, continuous use of opioids 08/03/2019 Office Visit [facility] [address] [id number] Social History Date Tobacco Use Types Packs/Day Years Used Current Every Day Smoker Cigarettes 1 Smokeless Tobacco: Never Used Drinks/Week oz/Week Comments Alcohol Use No Sex Assigned at Date Recorded Not on file Industry Job Start Date Occupation Not on file Not on file Not on file Travel End Travel History Travel Start No recent travel history available. documented as of this encounter Last Filed Vital Signs Reading Time Taken Comments Vital Sign 122/70 08/03/2019 11:28 AM CDT Blood Pressure 85 08/03/2019 11:28 AM CDT Pulse - - Temperature 18 08/03/2019 11:28 AM CDT Respiratory Rate 100% 08/03/2019 11:28 AM CDT Oxygen Saturation - - Inhaled Oxygen Concentration 88.5 kg (195 lb) 08/03/2019 11:28 AM CDT Weight 167.6 cm (5' 6") 08/03/2019 11:28 AM CDT Height 31.47 08/03/2019 11:28 AM CDT Body Mass Index documented in this encounter Functional Status Date of Assessment Functional Status Response 12/06/2016 Does the patient have a hearing impairment: No documented as of this encounter Patient Instructions * Patient Instructions* Sarah Beth Zamora - 08/03/2019 10:30 AM CDT It was nice to see you today. Thank you for choosing to visit our clinic. Your time is important and if you had to wait today, we do apologize. Our goal i s to run exactly on time; however, on occasion, we get behind in clinic due to u nexpected patient issues. Thank you for your patience. General Instructions: Scheduling: Please call our scheduling coordinators at [phone] to set up an appointment with us. How to reach us: If you have a question about your care, please send a messag e to Dr. Fonseca's nurses, Miladis or Kasandra on [employer] or leave a voicemail at .She will return your call at her earliest availability. How to get a medication refill: Please use the [employer] Refill request or cont act your pharmacy directly to request medication refills. How to receive your test results: If you have signed up for [employer], you will receive your test results and messages from me this way. Otherwise, you will get a phone call or letter. If you are expecting results and have not heard from my office within 2 weeks of your testing, please send a Semasio message or call my office. Appointment Reminders on your cell phone: Make sure we have your cell phone n urszulaer, and Text [facility] to [phone]. Support for many chronic illnesses is available through [facility]: [facility] or 167-991-0336. For questions on nights, weekends or holidays, call the Road Test Examiner at [phone], and ask for the doctor parts person for Anesthesia Pain Management. Satisfaction Survey: You may receive an email or a call regarding your visit today and we would really apreciate you filling it out so we can continue doing the good things we are doing or fix any areas of concern. If we dont know pa kennedysams dont like itwe cant fix it. https://www.spine-health.com a comprehensive resource for understanding, prev enting and seeking appropriate treatment for back and neck pain and related cond itions. Roxy Paulino is a Nurse Practitioner that works closely with Dr. Fonseca. You can schedule with Roxy in addition to Dr. Fonseca. She will thoroughly communic ate with Dr. Fonseca about your care. Again, thank you for coming in today. 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 #Right shoulder pain Nature of the pain is deep dull aching and pounding pain. Minimal radiation of pain noted in right upper extremity Severity of pain 5/10 Timing of the pain is constant with exacerbations Provocative factors include low barometric pressure, cold weather, and certain s houlder movements Palliative factors include heating pad, swimming #Left knee pain Imminent left knee replacement in next month Sharp localized left knee pain VAS score 7/10 No radiation of pain in the left lower extremity Timing of the pain is constant with exacerbations Provocative factors include weight bearing Residual pain noted in left ankle secondary to alteration of weight bearing cathy gabino on left foot #Orthopedic Surgery History Left ankle fusion 1998, 2000 revision Right total knee replacement 2014, 2015 Right shoulder replacement 10 months ago September 2018 Left shoulder 22 months ago September 2017 Left knee total arthroplasty to be scheduled in next month. #Pain Medication Regimen Oxycodone IR 10 mg PO QID Naproxen 1000 mg PO TID Acetaminophen 500 mg PO intermittently every few days #Pain Treatment Modalities Self-performed physical therapy Medical History: Diagnosis Date Endometrial cancer (HCC) 1994 History of depression Other malignant neoplasm without specification of site Surgical History: Procedure Laterality Date BLADDER TUMOR EXCISION 05/26/2011 ANKLE SURGERY APPENDECTOMY FOOT SURGERY Right GALLBLADDER SURGERY HYSTERECTOMY LAPAROTOMY family history is not on file. Social History Socioeconomic History Marital status: Spouse name: Not on file Number of children: Not on file Years of education: Not on file Highest education level: Not on file Occupational History Not on file Tobacco Use Smoking status: Current Every Day Smoker Packs/day: 1.00 Types: Cigarettes Smokeless tobacco: Never Used Substance and Sexual Activity Alcohol use: No Drug use: No Sexual activity: Not on file Other Topics Concern Not on file Social History Narrative Not on file Allergies Allergen Reactions Atarax [Hydroxyzine Hcl] DYSTONIA Bactrim [Sulfamethoxazole-Trimethoprim] HIVES Ceclor [Cefaclor] HIVES Compazine [Prochlorperazine] DYSTONIA Pcn [Penicillins] HIVES Titanium SEE COMMENTS "Titanium-surgical steel = osteomyelitis" Tylenol [Acetaminophen] SEE COMMENTS "Liver problems" Vioxx [Rofecoxib] HIVES Current Outpatient Medications: ARIPiprazole (ABILIFY) 5 mg tablet, Take 5 mg by mouth daily., Disp: , Rfl: carvedilol (COREG) 12.5 mg tablet, Take 25 mg by mouth twice daily with [facility] ls., Disp: , Rfl: levofloxacin (LEVAQUIN) 500 mg tablet, Take 500 mg by mouth daily., Disp: , Rfl: lisinopril (PRINIVIL; ZESTRIL) 10 mg tablet, Take 10 mg by mouth daily., Di sp: , Rfl: naproxen (NAPROSYN) 500 mg tablet, Take 500 mg by mouth twice daily with me als. Take with food., Disp: , Rfl: oxyCODONE (ROXICODONE) 5 mg tablet, Take 1 Tab by mouth every 4 hours as ne eded for Pain, Disp: 10 Tab, Rfl: 0 traMADol (ULTRAM) 50 mg tablet, Take 1 Tab by mouth every 6 hours as needed for Pain., Disp: 30 Tab, Rfl: 0 Vitals: 08/03/19 1128 BP: 122/70 Pulse: 85 Resp: 18 SpO2: 100% Weight: 88.5 kg (195 lb) Height: 167.6 cm (66") Oswestry Total Score:: 42 Female Opioid Risk Score: 1 (08/03/2019 11:00 AM) Opioid Risk Category: Low Risk (08/03/2019 11:00 AM) Is a controlled substance agreement on file?No Pain Score: Nine Body mass index is 31.47 kg/m. Review of Systems Constitutional: Positive for activity change and appetite change. HENT: Positive for hearing loss, rhinorrhea and sneezing. Eyes: Negative. Respiratory: Positive for cough. Negative for choking. Cardiovascular: Negative. Gastrointestinal: Positive for nausea and vomiting. Endocrine: Positive for cold intolerance. Genitourinary: Negative. Musculoskeletal: Positive for arthralgias. Skin: Negative. Allergic/Immunologic: Positive for environmental allergies. Neurological: Negative. Hematological: Negative. Psychiatric/Behavioral: The patient is nervous/anxious. All other systems reviewed and are negative. PHYSICAL EXAM: General: Alert, cooperative, no acute distress. HEENT: Normocephalic, atraumatic. Neck: Supple. Lungs: Unlabored respirations, bilateral and equal chest excursion. Heart: Regular rate by palpation of pulse. Skin: Warm and dry to touch. Abdomen: Nondistended. Musculoskeletal: Right shoulder impingement or severe localized pain noted with abduction movemen t both on passive and active motion. Negative drop arm, coke can test. Cervical spine: Cervical tenderness: No Pain with extension: No Pain with lateral flexion: No Limited neck ROM: No Upper extremity strength: 5/5 bilaterally Sensation to light touch: Intact and equal in the bilateral upper extremities Reflexes: 1/4 in bilateral biceps, triceps, and brachioradialis tendons Becerril sign: negative Lumbar spine: Appearance: No lesions or deformity Lumbar tenderness: No SI joint tenderness: No Pain with extension: No Pain with lateral flexion: No JIMY and FADIR deferred secondary to right knee replacement and imminent left k nee replacement Lower extremity strength: 5/5 bilaterally with exception of left ankle dorsiflex ion/plantarflexion secondary to left ankle fusion Sensation to light touch: Intact and equal in the bilateral lower extremities Straight leg raise: negative Reflexes: 0/4 bilateral patellar reflexes, 1 beat of right ankle clonus, left a nkle fused Neurological: Alert and oriented x3. RADIOGRAPHIC EVALUATION: MRI Cervical Spine without Contrast 12/06/2016 "FINDINGS: Motion artifact severely limits examination. There is [...] moderate neuroforaminal stenosis bilaterally at C5-C6 and C6-C7." Right Shoulder Radiograph 07/21/2018 "History: Right shoulder pain. Technique: Two AP, Y and axillary views of the right shoulder were obtained. Findings: There is no evidence of fractures or dislocation of the right shoulder. Mild degenerative changes of the AC joint are seen. Acromiohumeral interval is preserved. Degenerative change of the humeral head are also seen." IMPRESSION: 1. Post-traumatic osteoarthritis of left knee 2. Chronic intractable pain 3. Complex regional pain syndrome type 2 of left lower extremity 4. Chronic, continuous use of opioids PLAN: 1. Will await further evaluation and treatment until after imminent left total k nee arthroplasty 2. Will consider DRG stimulation for residual left ankle pain vs. Intrathecal pa in pump for lower extremity pain Jean Toscano MD PGY 5, Pain Fellow Department of Anesthesia and Pain Management Pager [phone] (Chronic Pain Service) ATTESTATION I personally performed the thompson portions of the E/M visit, discussed case with re sident and concur with resident documentation of history, physical exam, assessm ent, and treatment plan unless otherwise noted. Staff name: Gaudencio Fonseca MD Date: 08/03/2019 documented in this encounter Plan of Treatment Not on filedocumented as of this encounter Visit Diagnoses Diagnosis Post-traumatic osteoarthritis of left k nee - Primary Secondary localized osteoarthrosis, low er leg Chronic intractable pain Other chronic pain Complex regional pain syndrome type 2 o f left lower extremity Chronic, continuous use of opioids Opioid type dependence, continuous documented in this encounter
--- OUTSIDE RECORDS SUMMARY | 2019-12-13 01:15 | XMS REPORT | Continuity of Care Document ---
Author Author ROSA ISELA Sahu Fany [facility] Address Unknown Phone Unavailable Care Team Providers Care Ham Rolling Machine Operator Name Role Phone PP Unavailable Aleks Zimmer RP Unavailable Payers Payer name Insurance type Covered constitution party ID Authorization(s ) [facility] Part B [id number] Medicaid [facility] [id number] Problems Condition Effective Dates (start - stop) Clinical Status Unknown Family History Family Member Diagnosis Age At Onset Status Unknown Social History Social History Element Description Quantity Unknown Allergies, Adverse Reactions, Alerts Substance Reaction Severity Status Unknown Medications Medication Instructions Dosage Effective Dates (start - sto p) Status Unknown Immunizations Vaccine Date Status Comments Unknown Results Test Name Date and Time Measure Units Reference Range Abnormal F lag Comments Unknown Vital Signs Date / Time: Height Weight Pulse Rate Blood Pressure Temperat ure Unknown Procedures Procedure Date Electrocardiogram report Encounters Encounter Location Date Patient Visit [facility] Advance Directives Directive Yes / No Effective Date Resuscitation Yes 01/10/2013 Life Support Yes 01/10/2013 Intubation Yes 01/10/2013 Antibiotics Yes 01/10/2013 IV Fluid Support Yes 01/10/2013 WARNING:The information contained in this section is historical and is provided for information only and does not constitute a legal document or any assurance t hat the information is still accurate. Please verify the information with the ho lder of the legal document before using it for clinical purposes.
--- OUTSIDE RECORDS SUMMARY | 2019-12-13 01:16 | XMS REPORT | Continuity of Care Document ---
Author Author ROSA ISELA Sahu Fany [facility] Address Unknown Phone Unavailable Care Team Providers Care Transportation Lead Name Role Phone PP Unavailable Yuan MARTIN, Louis FRIAS Unavailable Payers Payer name Insurance type Covered green party ID Authorization(s ) [facility] Part B [id number] Medicaid [facility] [id number] Problems Condition Effective Dates (start - stop) [...] report Encounters Encounter Location Date [facility] Advance Directives Directive Yes / No Effective Date Resuscitation Yes 01/16/2013 Life Support Yes 01/16/2013 Intubation Yes 01/16/2013 Antibiotics Yes 01/16/2013 IV Fluid Support Yes 01/16/2013 WARNING:The information contained in this section is historical and is provided for information only and does not constitute a legal document or any assurance t hat the information is still accurate. Please verify the information with the ho lder of the legal document before using it for clinical purposes.
--- OUTSIDE RECORDS SUMMARY | 2019-12-13 01:16 | XMS REPORT | Continuity of Care Document ---
Author Author CARLOS ALBERTO, ROSA ISELA [facility] Address Unknown Phone Unavailable Care Team Providers Care Tax Examiner Name Role Phone Lacey MARTIN, Geronimo CRONIN Unavailable Lacey MARTIN, Geronimo CRONIN Unavailable Lacey MARTIN, Geronimo RP Unavailable Payers Payer name Insurance type Covered democrat ID Authorization(s ) Part B [facility] [id number] Problems Condition Effective Dates (start - stop) Clinical Status Anxiety - HTN, Unspecified - Left shoulder pain - Nose abnormality - Left shoulder pain - DVT (deep venous thrombosis) - Essential hypertension - Active Family History Family Member Diagnosis Age At Onset Status Mother Diabetes mellitus N Mother Stroke N Father Cancer, lung N Father Myocardial infarction N Mother Hypertension N Father Melanoma N Social History Type Description Quantity Date guthrie colada coffee cigarettes 20.00 Smoking Status Current every day smoker 20.00 packs per day Allergies, Adverse Reactions, Alerts Substance Reaction Severity Status Penicillins Anaphylaxis Unknown Active Cefaclor Hived Unknown Active sulfamethoxazole dystonia Unknown Active PROCHLORPERAZINE EDISYLATE dystonia Unknown Activ e Medications Medication Instructions Dosage Effective Dates (start - stop) Sta tus Comments Lortab 5 mg-500 mg tablet take 1 tablet by oral route every 6 hours as needed for pain 0 - Active Xanax 0.25 mg tablet take 1 tablet (0.25MG) by OR AL route 3 times daily prn anxiety - Active Coumadin 10 mg tablet take 1 tablet by oral route every day 10 MG - Active Coreg 12.5 mg tablet take 1 tablet by oral route 2 times karen ry day with food 12.5 MG - Active hydrochlorothiazide 25 mg tablet take 1 tablet by oral route ev liseth AM - Active Xanax 0.25 mg tablet take 1 tablet (0.25MG) by OR AL route 3 times daily prn anxiety - No Longer Active Immunizations Vaccine Date Status Comments pneumo (2 yrs or older) (PPV23) completed - Completed reason: Source Unspecified Tdap completed - Completed reas on: Source Unspecified Results Test Name Date and Time Measure Units Reference Range Abnormal F lag Comments Panel Description: Prothrombin Time (PT) INR 11:50:00 1.0 Prothrombin Time 11:50:00 12.8 second 11.5-15.0 Vital Signs Date / Time: Height Weight BMI Pulse Rate Blood Pressure Temperatu re Respiratory Rate Body Surface Area Head Circumference BMI percentile /11:27:00 66.00 in 248.40 lbs 40.09 100 /min 132/100 mm[Hg] 97.3 F 16 /min Procedures Procedure Date OFFICE/OUTPATIENT VISIT, EST Encounters Encounter Practice Location Reason(s) For Visit Diagnoses Date OFFICE/OUTPATIENT VISIT, [facility], [address] [place], [address] [facility] anxiety (chief complaint)hypertensionL inferior nares skin cracksshoulder pain AnxietyHTN, UnspecifiedLeft shoulder painNose abnormality Unknown [facility] [facility], [address] [place], [address] [facility] L eft shoulder painDVT (deep venous thrombosis) Unknown [facility] [place], [address] [place], [address] [facility] Advance Directives Directive Yes / No Effective Date File Name Unknown WARNING:The information contained in this section is historical and is provided for information only and does not constitute a legal document or any assurance t hat the information is still accurate. Please verify the information with the ho lder of the legal document before using it for clinical purposes.
--- OUTSIDE RECORDS SUMMARY | 2019-12-13 01:16 | XMS REPORT | Continuity of Care Document ---
Author Author CARLOS ALBERTO, ROSA ISELA [facility] Address Unknown Phone Unavailable Care Team Providers Care Radiology Tech Name Role Phone Lacey MARTIN, Geronimo CRONIN Unavailable Lacey MARTIN, Geronimo CRONIN Unavailable Lacey MARTIN, Geronimo RP Unavailable Payers Payer name Insurance type Covered democrat ID Authorization(s ) Part B [facility] [id number] Problems Condition Effective Dates (start - stop) Clinical Status HTN, Unspecified - Left shoulder pain - Anxiety - Nose abnormality - Left shoulder pain - DVT (deep venous thrombosis) - Family History Family Member Diagnosis Age At Onset Status Mother Diabetes Yes Mother CVA (Stroke) Yes Father Cancer - lung Yes Father Myocardial infarction Yes Mother Hypertension Yes Father Cancer - melanoma Yes Social History Type Description Quantity Date coffee cigarettes 20.00 Smoking Status Current every [...] oral route ev liseth AM - Active Lortab 5 mg-500 mg tablet take 1 tablet by oral route every 6 hours as needed for pain 0 - No Longer Active Coumadin 7.5 mg tablet take 1 tablet by oral route every day 7. 5 MG - No Longer Active Immunizations Vaccine Date [...] Body Surface Area Head Circumference BMI percentile /:08:00 66.00 in 249.80 lbs 40.31 80 /min 124/78 mm[Hg] 9 7.8 F 16 /min /16:28:00 144/86 mm[Hg] /16:28:00 140/86 mm[Hg] Procedures Procedure Date Office/outpatient visit, [facility] Encounters Encounter Practice Location Reason(s) For Visit Diagnoses Date Office/outpatient visit, [facility], [address] [place] [address], [id number] [facility] (chief complaint) Left shoulder painDVT (deep venous thrombosis) 2013 Unknown [facility] [place] [facility], [address] [place] [address], [id number] [facility] [place], UnspecifiedLeft shoulder painAnxietyNose abnormality Unknown [facility] [place] [facility], [id number] [place] [address], [id number] [facility] Advance Directives Directive Yes / No Effective [...]
--- OUTSIDE RECORDS SUMMARY | 2019-12-13 01:16 | XMS REPORT | Continuity of Care Document ---
Author Author CARLOS ALBERTO, ROSA ISELA [facility] Address Unknown Phone Unavailable Care Team Providers Care Electronic Sales And Service Technician Name Role Phone Lacey MARTIN, Geronimo CRONIN Unavailable Lacey MARTIN, Geronimo CRONIN Unavailable Lacey MARTIN, Geronimo RP Unavailable Payers Payer name Insurance type Covered constitution party ID Authorization(s ) Part B [facility] [id number] Problems Condition Effective Dates (start - stop) Clinical Status HTN, Unspecified - Left shoulder pain - Anxiety - Nose abnormality - DVT (deep venous thrombosis) - Left shoulder pain - Essential hypertension - Active Family History Family Member Diagnosis Age At Onset Status Mother Diabetes mellitus N Mother Stroke N Father Cancer, lung N Father Myocardial infarction N Mother Hypertension N Father Melanoma N Social History Type Description Quantity Date coffee [...] Body Surface Area Head Circumference BMI percentile /16:08:00 66.00 in 249.80 lbs 40.31 80 /min 124/78 mm[Hg] 9 7.8 F 16 /min /16:28:00 144/86 mm[Hg] /16:28:00 140/86 mm[Hg] Procedures Procedure Date Office/outpatient visit, [facility] Encounters Encounter Practice Location Reason(s) For Visit Diagnoses Date Office/outpatient visit, [facility], [id number] [place] [address], [phone] [facility] (chief complaint) DVT (deep venous thrombosis)Left shoulder pain 2013 Unknown [facility] [place] [facility], [address] [place] [address], [address] [facility] [place], UnspecifiedLeft shoulder painAnxietyNose abnormality Unknown [facility] [place] [facility], [address] [place] [address], [id number] [facility] Advance Directives Directive Yes / [...]
--- OUTSIDE RECORDS SUMMARY | 2019-12-13 01:16 | XMS REPORT | Continuity of Care Document ---
Author Author ROSA ISELA Hernandez [facility] [employer] [facility] Address Unknown Phone Unavailable Care Team Providers Care Bankman Name Role Phone Lacey MARTIN, Geronimo CRONIN Unavailable Lacey MARTIN, Geronimo CRONIN Unavailable Lacey MARTIN, Geronimo RP Unavailable Payers Payer name Insurance type Covered constitution party ID Authorization(s ) Part B S [facility] [id number] Problems Condition Effective Dates (start - stop) [...] 140/86 mm[Hg] Procedures Procedure Date Office/outpatient visit, [facility] Encounters Encounter Practice Location Reason(s) For Visit Diagnoses Date Office/outpatient visit, [facility], [id number] [place] [address], [address] [facility] (chief complaint) Left shoulder painDVT (deep venous thrombosis) 2013 Unknown [facility], [id number] [place] [address], [address] [facility] [place], UnspecifiedLeft shoulder painAnxietyNose abnormality Unknown [facility] [place] [facility], [id number] [place] [address], [address] [facility] Advance Directives Directive Yes / No [...]
--- OUTSIDE RECORDS SUMMARY | 2019-12-13 01:16 | XMS REPORT | Continuity of Care Document ---
Author Author ROSA ISELA [facility] [place] Address [address] [place] [address] Phone Care Team Providers Care Diesel Service Technician Name Role Phone Lacey MARTIN, Geronimo CRONIN Unavailable Lacey MARTIN, Geronimo CRONIN Unavailable Lacey MARTIN, Geronimo RP Unavailable Payers Payer name Insurance type Covered green party ID Authorization(s ) Part B S [facility] [id number] Problems Condition Effective Dates (start - stop) [...] Yes Social History Type Description Quantity Date Unknown Allergies, Adverse Reactions, Alerts Substance Reaction Severity Status Cefaclor Hived Unknown Active sulfamethoxazole dystonia Unknown Active PROCHLORPERAZINE EDISYLATE dystonia Unknown Activ e Penicillins Anaphylaxis Unknown Active Medications Medication Instructions Dosage Effective Dates (start [...] oral route ev liseth AM - Active Immunizations Vaccine Date Status Comments pneumo [...] Body Surface Area Head Circumference BMI percentile Unknown Procedures Procedure Date Unknown Encounters Encounter Practice Location Reason(s) For Visit Diagnoses Date Unknown [facility] [place], [address] [place], [address] [facility] Unknown [facility] [place], [address] [place], [address] [facility] L eft shoulder painDVT (deep venous thrombosis) Unknown [facility], [address] [place], [address] [facility] [place], UnspecifiedLeft shoulder painAnxietyNose abnormality Unknown [facility] [place], [address] [place], [address] [facility] Advance Directives Directive Yes / No Effective [...]
--- OUTSIDE RECORDS SUMMARY | 2019-12-13 01:16 | XMS REPORT | Continuity of Care Document ---
Author Author ROSA ISELA Rahman [facility] [place] [facility] Address [address] [place] [address] Phone Care Team Providers Care Entry Driver Operator Name Role Phone Lacey MARTIN, Geronimo CRONIN Unavailable Lacey MARTIN, Geronimo CRONIN Unavailable Lacey MARTIN, Geronimo RP Unavailable Payers Payer name Insurance type Covered green party ID Authorization(s ) Part B S [facility] [id number] Problems Condition Effective Dates (start - stop) [...] Location Reason(s) For Visit Diagnoses Date Unknown [facility] [place], [address] [place], [address] [facility] Unknown [facility] [place], [address] [place], [address] [facility] L eft shoulder painDVT (deep venous thrombosis) Unknown [facility], [address] [place], [address] [facility] [place], UnspecifiedLeft shoulder painAnxietyNose abnormality Unknown [facility] [place], [address] [place], [address] [facility] Advance Directives Directive Yes / [...]
--- OUTSIDE RECORDS SUMMARY | 2019-12-13 01:16 | XMS REPORT | Continuity of Care Document ---
Author Author ROSA ISELA Ernst [facility] Address Unknown Phone Unavailable Care Team Providers Care Online Marketing Manager Name Role Phone Lacey MARTIN, Geronimo CRONIN Unavailable Geronimo Rahman MD, PP Unavailable Geronimo Rahman MD RP Unavailable Payers Payer name Insurance type Covered alliance party ID Authorization(s ) Part B S [facility] [id number] Problems Condition Effective Dates (start - stop) [...] Location Reason(s) For Visit Diagnoses Date Unknown [facility] [place], [address] [place], [address] [facility] Unknown [facility] [place] [address] [place], [address] [facility] L eft shoulder painDVT (deep venous thrombosis) Unknown [facility] [place], [address] [place], [address] [facility] [place], UnspecifiedLeft shoulder painAnxietyNose abnormality Unknown [facility] [place], [address] [place], [address] [facility] Advance Directives Directive Yes [...]
--- OUTSIDE RECORDS SUMMARY | 2019-12-13 01:16 | XMS REPORT | Continuity of Care Document ---
Author Author ROSA ISELA Hernandez [facility] Address Unknown Phone Unavailable Care Team Providers Care 7Th Grade Teacher Name Role Phone Lacey MARTIN, Geronimo CRONIN Unavailable Lacey MARTIN, Geronimo CRONIN Unavailable Lacey MARTIN, Geronimo RP Unavailable Payers Payer name Insurance type Covered republican ID Authorization(s ) [facility] [id number] Problems Condition Effective Dates (start - stop) [...] Yes Social History Type Description Quantity Date guthrie [...] Reason(s) For Visit Diagnoses Date OFFICE/OUTPATIENT VISIT, EST [facility], [address] [place], [address] [facility] anxiety (chief complaint)hypertensionL inferior nares skin cracksshoulder pain HTN, UnspecifiedLeft shoulder painAnxietyNose abnormality Unknown [facility] [place], [address] [place], [address] [facility] L eft shoulder painDVT (deep venous thrombosis) Unknown [facility] [place], [address] [place], [address] [facility] Advance Directives Directive Yes [...]
--- OUTSIDE RECORDS SUMMARY | 2019-12-13 01:16 | XMS REPORT | Continuity of Care Document ---
Author Author CARLOS ALBERTO, ROSA ISELA [facility] Address Unknown Phone Unavailable Care Team Providers Care Airplane Cabin Attendant Name Role Phone Lacey MARTIN, Geronimo CRONIN Unavailable Lacey MARTIN, Geronimo CRONIN Unavailable Lacey MARTIN, Geronimo RP Unavailable Payers Payer name Insurance type Covered alliance party ID Authorization(s ) Part B [facility] [id number] Problems Condition Effective Dates (start - stop) [...] 140/86 mm[Hg] Procedures Procedure Date Office/outpatient visit, [facility] Encounters Encounter Practice Location Reason(s) For Visit Diagnoses Date Office/outpatient visit, [facility], [id number] [place] [address], [address] [facility] (chief complaint) DVT (deep venous thrombosis)Left shoulder pain 2013 Unknown [facility] [place] [facility], [id number] [place] [address], [address] [facility] [place], UnspecifiedLeft shoulder painAnxietyNose abnormality Unknown [facility] [place] [facility], [address] [place] [address], [address] [facility] Advance Directives Directive Yes [...]
--- OUTSIDE RECORDS SUMMARY | 2019-12-13 01:16 | XMS REPORT | Continuity of Care Document ---
Author Author CARLOS ALBERTO, ROSA ISELA [facility] Address Unknown Phone Unavailable Care Team Providers Care Engraver Letter Name Role Phone Lacey MARTIN, Geronimo CRONIN Unavailable Lacey MARTIN, Geronimo CRONIN Unavailable Lacey MARTIN, Geronimo RP Unavailable Payers Payer name Insurance type Covered alliance party ID Authorization(s ) Part B S [facility] [id number] Problems Condition Effective Dates (start - stop) [...] take 1 tablet by oral route ev lsieth AM - Active Xanax 0.25 mg tablet [...] For Visit Diagnoses Date OFFICE/OUTPATIENT VISIT, EST [facility], [address] [place], [address] [facility] anxiety (chief complaint)hypertensionL inferior nares skin cracksshoulder pain HTN, UnspecifiedLeft shoulder painAnxietyNose abnormality Unknown [facility] [place], [address] [place], [address] [facility] L eft shoulder painDVT (deep venous thrombosis) Unknown [facility] [place], [address] [place], [address] [facility] Advance Directives Directive Yes / No [...]
--- OUTSIDE RECORDS SUMMARY | 2019-12-13 01:17 | XMS REPORT | Continuity of Care Document ---
Author Author CARLOS ALBERTO, ROSA ISELA [facility] Address Unknown Phone Unavailable Care Team Providers Care Exercise Science Internship Name Role Phone Lacey MARTIN, Geronimo CRONIN Unavailable Lacey MARTIN, Geronimo CRONIN Unavailable Lacey MARTIN, Geronimo RP Unavailable Payers Payer name Insurance type Covered democrat ID Authorization(s ) Part B [facility] [id number] Problems Condition Effective Dates (start - stop) [...] Reason(s) For Visit Diagnoses Date OFFICE/OUTPATIENT VISIT, [facility], [address] [place], [address] [facility] anxiety (chief complaint)hypertensionL inferior nares skin cracksshoulder pain AnxietyHTN, UnspecifiedLeft shoulder painNose abnormality Unknown [facility] [place], [address] [place], [address] [facility] L eft shoulder painDVT (deep venous thrombosis) Unknown [facility] [place], [address] [place], [address] [facility] Advance Directives Directive Yes / No [...]
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
--- OUTSIDE RECORDS SUMMARY | 2019-12-13 01:17 | XMS REPORT | Continuity of Care Document ---
Author Author ROSA ISELA Rahman [facility] Address [address] [place] [address] Phone Unavailable Care Team Providers Care Arch Support Technician Name Role Phone Geronimo Rahman MD PP Unavailable Geronimo Rahman MD PP Unavailable Lacey MARTIN, Geronimo RP Unavailable Payers Payer name Insurance type Covered libertarian ID Authorization(s ) Part B [facility] [id number] Problems Condition Effective Dates (start - stop) Clinical Status Essential hypertension - Active Family History Family Member Diagnosis Age At Onset Status Mother Diabetes mellitus N Mother Stroke N Father Cancer, lung N Father Myocardial infarction N Mother Hypertension N Father Melanoma N Social History Type Description Quantity Date Alcohol guthrie colada Caffeine coffee soda cigarettes 20.00 Smoking Status Current every day smoker 20.00 per day 2013 Allergies, Adverse Reactions, Alerts Substance Reaction Severity Status Penicillins Anaphylaxis Unknown Active cefaclor Hived Unknown Active sulfamethoxazole dystonia Unknown Active [...] Practice Location Reason(s) For Visit Diagnoses Date Provider Unknown [facility], [id number] [place] [address], [facility], [facility], [facility] Lacey Melton. [address], [address], [place], [place], [facility], . tel:[phone] OFFICE/OUTPATIENT VISIT, EST [facility], [address] [place] [address], [address], [facility] Medical [facility] anxiety (chief complaint)hypertension (chief complaint)L inferior nares skin cracks (chief complaint)shoulder pain (chief complaint) HTN, UnspecifiedLeft shoulder painAnxietyNose abnormality Lacey Melton. [address], [address], [place], [place], [facility], . tel:[phone] Unknown [facility], [address] [facility], [place], [address], [facility] Left shoulder painDVT (deep venous thrombosis) Lacey Melton. [address], [address], [place], [address], . tel:[phone] Advance Directives Directive Yes / No Effective Date File Name Unknown
--- OUTSIDE RECORDS SUMMARY | 2019-12-13 01:17 | XMS REPORT | Continuity of Care Document ---
Author Author CARLOS ALBERTO, ROSA ISELA [facility] Address Unknown Phone Unavailable Care Team Providers Care Blender Helper Name Role Phone Lacey MARTIN, Geronimo CRONIN Unavailable Lacey MARTIN, Geronimo CRONIN Unavailable Lacey MARTIN, Geronimo RP Unavailable Payers Payer name Insurance type Covered alliance party ID Authorization(s ) Part B [facility] [id number] Problems Condition Effective Dates (start - stop) [...] Reason(s) For Visit Diagnoses Date OFFICE/OUTPATIENT VISIT, [facility], [address] [place], [address] [facility] anxiety (chief complaint)hypertensionL inferior nares skin cracksshoulder pain AnxietyHTN, UnspecifiedLeft shoulder painNose abnormality Unknown [facility], [address] [place], [address] [facility] L eft shoulder painDVT (deep venous thrombosis) Unknown [facility], [address] [place], [address] [facility] Advance Directives Directive Yes / [...]
--- OUTSIDE RECORDS SUMMARY | 2019-12-13 01:17 | XMS REPORT | Continuity of Care Document ---
Author Author ROSA ISELA [facility] Address Unknown Phone Unavailable Care Team Providers Care Director Of Labor Relations Name Role Phone Lacey MARTIN, Geronimo CRONIN Unavailable Lacey MARTIN, Geronimo CRONIN Unavailable Lacey MARTIN, Geronimo RP Unavailable Payers Payer name Insurance type Covered alliance party ID Authorization(s ) Part B [facility] [id number] Problems Condition Effective Dates (start - stop) [...] 140/86 mm[Hg] Procedures Procedure Date Office/outpatient visit, [facility] Encounters Encounter Practice Location Reason(s) For Visit Diagnoses Date Office/outpatient visit, [facility], [address] [place] [address], [address] [facility] (chief complaint) DVT (deep venous thrombosis)Left shoulder pain 2013 Unknown [facility], [address] [place] [address], [address] [facility] [place], UnspecifiedLeft shoulder painAnxietyNose abnormality Unknown [facility], [address] [place] [address], [address] [facility] Advance Directives Directive Yes / No [...]
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
== END 2019-12-09 14:47 | disposition home or self-care (01) ==
LOC: EDUNIT# 13:53 → ER 13:54
DX: S61.452A Open bite of left hand, initial encounter (principal); I10 Essential (primary) hypertension; K21.9 Gastro-esophageal reflux disease without esophagitis; Z85.51 Personal history of malignant neoplasm of bladder; Z85.820 Personal history of malignant melanoma of skin; Z86.718 Personal history of other venous thrombosis and embolism; Z88.0 Allergy status to penicillin; Z88.1 Allergy status to other antibiotic agents; Z88.2 Allergy status to sulfonamides; Z88.8 Allergy status to other drugs, medicaments and biological substances; Z77.22 Contact with and (suspected) exposure to environmental tobacco smoke (acute) (chronic); Z79.01 Long term (current) use of anticoagulants; W54.0XXA Bitten by dog, initial encounter
CPT/HCPCS: 99283

== ENCOUNTER 2019-12-26 01:47 | Emergency (ER) | payer MEDICARE, MEDICAID ==
[~2019-12-26] VITALS: Ht 167.7 cm; Wt 97.5 kg
[~2019-12-26 01:47] MED LIST changes: +CLIN300C11 PO
--- OUTSIDE RECORDS SUMMARY | 2019-12-26 01:54 | XMS REPORT | Encounter Summary ---
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 Pain Pain * (Routine) Referred By Contact Referred To Contact Status Reason Specialty Diagnoses / Procedures Pending Review Encounter Details Care Team Description Date Type Department Gaudencio Fonseca MD [address] [place], [place] [id number] Post-traumatic osteoarthritis of left kn ee (Primary Dx); Chronic intractable pain; Complex regional pain syndrome type 2 of left lower extremity; Chronic, continuous use of opioids 08/03/2019 Office Visit [facility] [address] [id number] Social History Date Tobacco Use Types Packs/Day [...] Scheduling: Please call our scheduling coordinators at [phone] to set up an appointment with us. How to reach us: If you have a question about your care, please send a messag e to Dr. Fonseca's nurses, Miladis or Kasandra on Paddle8 or leave a voicemail at [phone].She will return your call at her earliest availability. How to get a medication refill: Please use the Paddle8 Refill request or cont act your pharmacy directly to request medication refills. How to receive your test results: If you have signed up for Paddle8, you will receive your test results and messages from me this way. Otherwise, you will get a phone call or letter. If you are expecting results and have not heard from my office within 2 weeks of your testing, please send a Paddle8 message or call my office. Appointment Reminders on your cell phone: Make sure we have your cell phone n urszulaer, and Text [facility] to [phone]. Support for many chronic illnesses is available through [facility]: [email or web address] or [phone]. For questions on nights, weekends or holidays, call the Party Plan Demonstrator at , and ask for the doctor hiv prevention specialist for Anesthesia Pain Management. 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
--- OUTSIDE RECORDS SUMMARY | 2019-12-26 01:54 | XMS REPORT | Clinical Summary ---
Author Author [facility] Organization [facility] Address Unknown Phone Unavailable Care Team Providers Care Pattern Chain Builder Name Role Phone Angelica Albrecht MEDICAL AFFAIRS SPECIALIST Unavailable Davina Nicole MEDICAL AFFAIRS SPECIALIST Unavailable Unavailable [place] DO Unavailable Deandra Diaz DO PCP Source Comments Some departments are not documenting in the electronic medical record. If you d o not see the information that you expected, contact Release of Information in [facility] Information Management department at [phone] for further assistan ce in locating additional records.[facility] Allergies Comments Active Allergy Reactions Severity [...] 36.7 C (98.1 F) 12/06/2016 1:37 AM NEON PUMPER Temperature 18 08/03/2019 11:28 AM CDT Respiratory [...] PNEUMONIA VACCINE (DM) 1977 CERVICAL CANCER SCREENING 1980 BREAST CANCER SCREENING 1999 COLORECTAL CANCER 2009 SCREENING SHINGLES RECOMBINANT 2009 VACCINE (1 of 2) INFLUENZA VACCINE 05/04/2019 Results Not on filefrom Last 3 Months Insurance Type Payer Benefit Subscriber ID Effective Phone Address Plan / Dates Group Medicare MEDICARE MEDICARE xxxxxxxxxxx 2000-P PART A AND resent B Advance Directives Patient Screen Printing Equipment Setter Explanation Type Date Recorded Advance 05/13/2014 12:59 PM Directive/DPOA
--- OUTSIDE RECORDS SUMMARY | 2019-12-26 01:54 | XMS REPORT ---
Author Author [employer] Organization [employer] Address [address] [address] Care Team Providers Care Planting Material Carrier Name Role Phone NO, LOCAL PHYSICIAN Unavailable Unavailable [facility] Unavailable ROSEMARY, MAURO Unavailable Unavailable ROSEMARY, MAURO Unavailable [...] JEAN-BAPTISTE Not Availa ble (4 sources.) Agonists (72872) Drug Allergy Sulfonamides Sulfamethoxazo 06-20-2016 - UNKNOWN GOPI EID Not Available (24 sources.) (antibiotic) DO susan (99338) Translations: [ SULFA (SULFONAMIDE ANTIBIOTICS)] Medications Medication [...] ailable disorders (6 eal reflux SYED MURPHY (97552) sources.) disease without esophagitis Spondylosis; Low back pain no information Active MAXIMILIANO BARKER Not Available intervertebral Translations: (63884) disc [ OTHER disorders; CERVICAL DISC other back DEGENERATION, problems (11 UNSP C] sources.) Substance-rela Nicotine Chronic Active TINO Not Avai lable sixto disorders dependence, SYED MURPHY (06205) (21 sources.) cigarettes, uncomplicated Osteoarthritis Primary Chronic Active GURPREET LEAL , Not Available (14 sources.) osteoarthritis (48131) , left shoulder Past or Other Problems Problem Normalized Date of Normalized Normalized Provider Fac ility Classification Problem(s) Problem Problem Problem Sta tus Onset/Resoluti Duration on Other Abnormal Episodic Completed TINO Not Available screening for results of SYED MURPHY (24674) suspected thyroid conditions function (not mental studies disorders or infectious disease) (6 sources.) Residual Acquired Episodic Completed JD SNOW , Not Avai lable codes; absence of (83460) unclassified both cervix (3 sources.) and uterus Other Disorders of Episodic Completed HARMEET JEAN-BAPTISTE Not Avail able connective bursae and (83018) tissue disease tendons in (3 sources.) shoulder region, unspecified External cause Fall (on) no information no information MAXIMILIANO MJ Not Available codes: Fall (6 (from) (07095) sources.) unspecified stairs and steps, initial encounter Other Incomplete Episodic Completed LANE Not Availab le connective rotator cuff ZARINA , DO (49266) tissue disease tear or (8 sources.) rupture of left shoulder, not specified as traumatic Other senior care Episodic Completed MAXIMILIANO MJ Not Availabl e aftercare (6 (current) use (70445) sources.) of opiate analgesic Nausea and Nausea with Episodic Completed ANNABELLE Not Avail able vomiting (10 vomiting, VENICE , (06480) sources.) unspecified MD Other nervous Other acute Episodic Completed TINO Not Av ailable system postprocedural SYED MURPHY (74172) disorders (17 pain sources.) External cause Other external no information no information MAXIMILIANO MJ Not Available codes: cause status (33417) Unspecified (6 sources.) Other Other long Episodic Completed GURPREET LEAL , Not Av ailable aftercare (20 term (current) (42477) sources.) drug therapy Other Pain in left Episodic Completed GURPREET LEAL , Not Available non-traumatic shoulder (58225) joint disorders (6 sources.) Other Pain in right Episodic Completed ANNIE Not Avai lable connective lower leg MD BENJAMIN (77052) tissue disease (14 sources.) Residual Procedure and Episodic Completed HARMEET ESTIVEN Not Avai lable codes; treatment not (18604) unclassified carried out (2 sources.) because of other contraindicati on Residual Procedure and Episodic Completed ANNIE Not Avai lable codes; treatment not MD BENJAMIN (83349) unclassified carried out (7 sources.) due to patient leaving prior to being seen by health care provider Sprains and Strain of Episodic Completed MAXIMILIANO MJ Not Availa ble strains (6 muscle, fascia (98968) sources.) and tendon of lower back, initial encounter Residual Surgical or Episodic Completed HARMEET ESTIVEN Not Availa ble codes; other (57703) unclassified procedure not (2 sources.) carried out because of contraindicati on Other Unspecified Episodic Completed HARMEET ESTIVEN Not Availa ble connective rotator cuff (42544) tissue disease tear or (3 sources.) rupture [...] 99.5) 05/20/2016 5:00pm Temperature (Calculated Celsius) 36. 95177 degrees C (36.4 - 37.5) 05/20/2016 5:00pm [...] inches 05/20/2016 5:00pm Height (Calculated Centimeters) 170. 560842 cm 05/20/2016 5:00pm Weight (Pounds) 200 pounds 05/20/2016 5:00pm Weight (Calculated Kilograms) 90.718 475 kilograms 05/20/2016 5:00pm Capillary Refill Capillary Refill Less Than 3 Seconds 05/20/2016 5:00pm Height 5 ft 7 in Weight 200 lb Body Mass Index 31.3 kg/m^2 Vital Response Date/Time Temperature (Fahrenheit) 97.4 degree s F (97.6 - 99.5) 05/26/2016 1:53pm Temperature (Calculated Celsius) 36. 17601 degrees C (36.4 - 37.5) 05/26/2016 1:53pm [...] inches 05/26/2016 11:50am Height (Calculated Centimeters) 167. 637785 cm 05/26/2016 11:50am Weight (Pounds) 250 pounds 05/26/2016 11:50am Weight (Calculated Kilograms) 113.39 8094 kilograms 05/26/2016 11:50am Capillary Refill Capillary Refill Less Than 3 Seconds 05/26/2016 11:50am Height 5 ft 6 in Weight 250 lb Body Mass Index 40.4 kg/m^2 Vital Response Date/Time Temperature (Fahrenheit) 98.1 degree s F (97.6 - 99.5) 07/21/2016 5:00am Temperature (Calculated Celsius) 36. 24108 degrees C (36.4 - 37.5) 07/21/2016 5:00am [...] inches 07/21/2016 5:00am Height (Calculated Centimeters) 167. 184749 cm 07/21/2016 5:00am Weight (Pounds) 220 pounds [...] inches 08/05/2016 11:08am Height (Calculated Centimeters) 167. 910266 cm 08/05/2016 11:08am Weight (Pounds) 220 pounds 08/05/2016 11:08am Weight (Calculated Grams) 39856.322 gm 08/05/2016 11:08am Weight (Calculated Kilograms) 99.790 322 kilograms 08/05/2016 11:08am Capillary Refill Capillary Refill Less Than 3 Seconds 08/05/2016 11:08am Height 5 ft 6 in Weight 220 lb Body Mass Index 35.5 kg/m^2 Vital Response Date/Time Temperature (Fahrenheit) 97.5 degree s F (97.6 - 99.5) 11/14/2016 5:37pm Temperature (Calculated Celsius) 36. 40828 degrees C (36.4 - 37.5) 11/14/2016 5:37pm [...] inches 11/14/2016 4:00pm Height (Calculated Centimeters) 172. 432386 cm 11/14/2016 4:00pm Weight (Pounds) 220 pounds 11/14/2016 4:00pm Weight (Calculated Kilograms) 99.790 322 kilograms 11/14/2016 4:00pm Capillary Refill Capillary Refill Less Than 3 Seconds 11/14/2016 4:50pm Height 5 ft 8 in Weight 220 lb Body Mass Index 33.5 kg/m^2 Vital Response Date/Time Temperature (Fahrenheit) 97.5 degree s F (97.6 - 99.5) 11/14/2016 5:37pm Temperature (Calculated Celsius) 36. 03358 degrees C (36.4 - 37.5) 11/14/2016 5:37pm [...] inches 11/14/2016 4:00pm Height (Calculated Centimeters) 172. 458915 cm 11/14/2016 4:00pm Weight (Pounds) 220 pounds [...] See Medication Section Referrals NO,LOCAL PHYSICIAN - [facility] Physician Additional Instructions/Education Al l discharge instructions [...] See Medication Section Referrals NO,LOCAL PHYSICIAN - [facility] Physician [facility] [place] - Additional Instructions/Education Al l discharge instructions [...] Discharge Improved Prescriptions See Medication Section Referrals [facility] - Primary Care Physician Discharge Date 11/14/16 6:15pm Disposition 01 HOME, SELF-CARE Condition at Discharge Stable Instructions/Education Provided Low Back Pain (DC) Prescriptions See Medication Section Referrals NO,LOCAL PHYSICIAN - [facility] Physician Additional Instructions/Education Al l discharge instructions [...] See Medication Section Referrals NO,LOCAL PHYSICIAN - [facility] Physician Additional Instructions/Education Al l discharge instructions [...] Directives No 5:00am Health Care Power of Senior Payroll Administrator No 07/21/16 5:00am Organ Donor No 07/21/16 5:00am Resuscitation Status Full Code 07/21/16 5:00am Directive Response Recor ded Date/Time Advance Directives No 11:08am Health Care Power of Senior Payroll Administrator No 08/05/16 11:08am Organ Donor No 08/05/16 11:08am Resuscitation Status Full Code 08/05/16 11:08am Directive Response Recor ded Date/Time Advance Directives No 4:23pm Health Care Power of Senior Payroll Administrator No 11/14/16 4:23pm Organ Donor No 11/14/16 4:23pm Resuscitation Status Full Code 11/14/16 4:23pm Discharge Instructions No hospital discharge instructions.No hospital discharge instructions.No hospital discharge instructions.No hospital discharge instructions.No hospital discharge instructions. Summary Purpose eClinicalWorks Submission Additional Source Comments This clinical document has been generated using [employer] software that has been certified by the Office of the National Coordinator for Health Information Technology (ONC 15.99.04.3023.Diam.31.00.0.219670) and the National Committee for Drywall Foreman (NCQA, as an eMeasure certified technology). FOR [...] BASED ON T HE PRIMARY CLINICAL RECORDS. [facility]. provides no warranty or guara ntee of the accuracy or completeness of information in this document.The followi information is based on time limited clinical information
--- OUTSIDE RECORDS SUMMARY | 2019-12-26 01:55 | XMS REPORT | Continuity of Care Document ---
Author Author Clean TeQREID Organization [facility] [employer] Address Unknown Phone Unavailable Care Team Providers Care Hand I Tube Bender Name Role Phone [facility] Unavailable Unavailable Problems Problem Status Onset Date Classification Date Reported Comments Source Essential hypertension Active 02/19/2014 Problem 01/28/2016 [facility] HTN, Unspecified 02/19/2014 Diagnosis 09/21/2014 [facility] [place] [facility] Left shoulder pain 02/19/2014 Diagnosis 09/21/2014 [facility] [place] Anxiety Diagnosis 09/21/2014 [facility] Nose abnormality 02/19/2014 Diagnosis 09/21/2014 [facility] [place] [facility] PAIN IN JOINT INVOLVING SHOULDER REGION Active 02/14/2014 [facility] ACUTE VENOUS EMBOLISM AND THROMBOSIS OF Active 02/14/2014 [facility] DVT (deep venous thrombosis) 02/14/2014 Diagnosis 09/21/2014 [facility] Medications Medication Details Route Status Patient Instructions Ordering Provider Order Date Source Acetaminophen 500 MG / Hydrocodone Sahra trate 5 MG Oral Tablet take 1 tablet by oral route every 6 kathy rs as needed for pain ORAL [facility] Alprazolam 0.25 MG Oral Tablet take 1 tablet (0.25MG) by ORAL route 3 times daily prn anxiety ORAL [facility] Warfarin Sodium 10 MG Oral Tablet take 1 tablet by oral route every day ORAL Active 02/19/2014 [facility] carvedilol 12.5 MG Oral Tablet take 1 tablet by oral route 2 times every day with food ORAL Active [facility]/14[facility] hydrochlorothiazide 25 mg tablet take 1 tablet by oral route every AM ORAL Active 02/14/2014 [facility] Acetaminophen 500 MG / Hydrocodone Sahra trate 5 MG Oral Tablet take 1 tablet by oral route every 6 kathy rs as needed for pain ORAL Active 02/14/2014 [facility] Warfarin Sodium 7.5 MG Oral Tablet take 1 tablet by oral route every day ORAL Active 02/14/2014 [facility] Allergies, Adverse Reactions, Alerts Substance Category Reaction Severity Reaction type Status Date Reported Comments Source Penicillins Anaphylaxis propensity to adverse reacti ons to drug Active 03/14/2014 [facility] cefaclor Hi ernestina drug allergy Active 03/14/2014 [facility] sulfamethoxazole dystonia drug allergy Active 03/14/2014 [facility] PROCHLORPERAZINE EDISYLATE dystonia drug allergy Active 03/14/2014 [facility] Cefaclor drug allergy Hived active 02/14/2014 [facility] Immunizations Immunization Date Given Site Status Last Updated Comments Source pneumo (2 yrs or older) (PPV23) 10/04/2012 completed B bethany [facility] [place] [facility] Tdap 10/04/2012 completed Bachelor [facility] Results Order Name Results Value Reference Range Date Interpretation Comments Source Protime PT 12.8 second 11.5 - 15.0 02/19/2014 N [facility] Protime INR 1.0 02/19/2014 NA [facility] Protime PT 13.3 second 11.5 - 15.0 02/15/2014 N [facility] Protime INR 1.0 02/15/2014 NA [facility] Pathology Reports No Data Provided for This Section Diagnostic Reports Report Value Date Source XR Shoulder Min 2V LT [facility] [address] [place] [id number] Radiology Reports CPT Codes; 08952 CDM Codes: 0144376 (XR Shoulder Min 2V LT) Reason for exam: SHOULDER PAIN Report THREE VIEWS OF THE LEFT SHOULDER Clinical history: Pain, injury. Findings: There is no fracture or dislocation. Alignment is normal. IMPRESSION: No acute abnormalities. Dictating Devi Murri[place] Dictated 02/14/2014 17:28 Signing Devi Murrieta Location [id number] Final Dictated by: DEVI NICHOLE MD Signed by: DEVI NICHOLE MD 02/14/14 17:29 Telecom Billing Analyst: IGOR 02/14/14 17:29 ROSA ISELA CHING [id number] 02/14/2014 [facility] Consultation Notes Results Value Date Source Progress [...] by spouse. Has been living in domestic snf for 3 years, spouse found her Wednesday. 03/14/2014 [facility] Discharge Summaries No Data Provided for This Section History and Physicals No Data Provided for This Section Vital Signs Vital Sign Value Date Comments Source Body height 66.00 [in_us] 02/19/2014 [facility] Body Weight (Measured) 248.40 [lb_av] 02/19/2014 [facility] Intravascular Systolic 132 mm[ Hg] 02/19/2014 [facility] Diastolic 100 mm [Hg] 02/19/2014 [facility] Heart Beat 100 /min 02/19/2014 [facility] Body Temperature 97.3 [degF] 02/19/2014 [facility] Respiratory Rate 16 /min 02/19/2014 [facility] Body height 66.00 [in_us] 02/19/2014 [facility] Body Weight (Measured) 248.40 [lb_av] 02/19/2014 [facility] Intravascular Systolic 132 mm[ Hg] 02/19/2014 [facility] Diastolic 100 mm [Hg] 02/19/2014 [facility] Heart Beat 100 /min 02/19/2014 [facility] Body Temperature 97.3 [degF] 02/19/2014 [facility] Respiratory Rate 16 /min 02/19/2014 [facility] Body mass index 40.09 kg/meter (2) 02/19/2014 [facility] Body height 66.00 [in_us] 02/14/2014 [facility] Body Weight (Measured) 249.80 [lb_av] 02/14/2014 [facility] Intravascular Systolic 124 mm[ Hg] 02/14/2014 [facility] Int[facility]ascular Diastolic 78 mm[ Hg] 02/14/2014 [facility] Heart Beat 80 /min 02/14/2014 [facility] Body Temperature 97.8 [degF] 02/14/2014 [facility] Respiratory Rate 16 /min 02/14/2014 [facility] Body height 66.00 [in_us] 02/14/2014 [facility] Body Weight (Measured) 249.80 [lb_av] 02/14/2014 [facility] Intravascular Systolic 124 mm[ Hg] 02/14/2014 [facility] Diastolic 78 mm[ Hg] 02/14/2014 [facility] Heart Beat 80 /min 02/14/2014 [facility] Body Temperature 97.8 [degF] 02/14/2014 [facility] Respiratory Rate 16 /min 02/14/2014 [facility] Body mass index 40.31 kg/meter (2) 02/14/2014 [place] [facility] [facility] Encounters Location Location Details Encounter Type Encounter Number Reason For Visit Attending Provider ADM Date DC Date [facility] [id number] Tawana [facility] 03/14/2014 03/14/2014 [place] [facility] [place] [facility] Medical Building [id number] [facility]/23/2014 02/23/2014 [place] [facility] Unknown [id number] Tawana [facility] 02/21/2014 02/21/2014 [place] [facility] [id number] [facility] 02/21/2014 02/21/2014 [place] [facility] [place] [facility] Medical Building [id number] [facility] 02/20/2014 02/20/2014 [place] [facility] 06LAB HANSA 06LAB HANSA N [id number] MAURICIO RAHMAN MD 02/19/2014 02/19/2014 Active [facility] [place] [facility] [place] [facility] Medical Building [id number] [facility] 02/19/2014 02/19/2014 [place] [facility] [place] [facility] Medical Building [id number] _MAPID:Encounter_[id number] Tawana [facility] 02/19/2014 02/19/2014 [place] [facility] [place] [facility] Medical Building [id number] [facility] 02/16/2014 02/16/2014 [place] [facility] [place] [facility] Medical Building [id number] Tawana Rahman 02/15/2014 02/15/2014 [facility] [id number] 719.41 TAWANA RAHMAN MD 02/14/2014 02/14/2014 Active [facility] Medical Building Unknown [id number] Tawana Rahman 02/14/2014 02/14/2014 [facility] Medical Building [id number] _MAPID:Encounter_[id number] Tawana pierson 02/14/2014 02/14/2014 [facility] [place] [facility] [id number] Louis Bolden MD 01/16/2013 01/16/2013 [facility] [id number] Aleks Zimmer 01/10/2013 01/10/2013 [facility] Procedures Procedure Code Date Perfomer Comments Source OFFICE/OUTPATIENT VISIT, EST 9 [id number] 02/19/2014 [facility] OFFICE/OUTPATIENT VISIT, EST 02/19/2014 [facility] Office/outpatient visit, new [id number] 02/14/2014 [facility] Office/outpatient visit, new 02/14/2014 [facility] Electrocardiogram report 01/16/2013 [facility] Electrocardiogram report 01/10/2013 [facility] Plan of Care Plan of Care Date Source DateTypeActionStatus Referral Referred To: [facility] [address] [place], [place], [id number] [phone] Ordered: [facility] Orthopedics for Evaluate and treat. ordered Referral Referred To: [facility] [address] [place], [phone] [facility] for [facility]uate and treat. ordered Referral Ordered: Prothrombin Time (PT) ordered Referral Ordered: X-ray exam of shoulder, Complete, Min 2 Views Left shoulder ordered Future Order: Lab Order CBC With Differential/Platelet ([id number]) Ordered Future Order: Lab Order Comp. Metabolic Panel (14) ([id number]) Ordered Future Order: Lab Order Lipid Panel ([id number]) Ordered Future Order: Lab Order TSH ([id number]) Ordered Future Order: Lab Order Urinalysis, Complete ([id number]) Ordered Future Order: Lab Order Hemoglobin A1c ([id number]) Ordered Future Order: Lab Order Prothrombin Time (PT) ([id number]), Collected on: Ordered DateTypeProblemGoalInterventionStatusStart Date Unknown. 03/14/2014 [facility] Social History Social History Date Source TypeDescriptionQuantityDate coffee cigarettes 20.00 Smoking Status Current every day smoker 20.00 packs per day 09/21/2014 [facility] TypeDescriptionQuantityDate Captured Alcohol Use Details [...] 20 per day, Pack Year: 800 03/14/2014 [facility] TypeDescriptionQuantityDate Alcohol guthrie colada Caffeine coffee soda cigarettes 20.00 Smoking Status Current every day smoker 20.00 per day 02/21/2014 [facility] TypeDescriptionQuantityDate Alcohol guthrie colada Caffeine coffee soda cigarettes 20.00 Smoking Status Current every day smoker 20.00 per day 02/21/2014 [facility] Assessment and Plan No Data Provided for This Section Family History Value Date S ource Family MemberDiagnosisAge At OnsetStatus Mother Diabetes mellitus N Mother Stroke N Father Cancer, lung N Father Myocardial infarction N Mother Hypertension N Father Melanoma N 09/21/2014 [facility] Family MemberDiagnosisAge At Onset Mother Diabetes mellitus Mother Stroke Father Cancer, lung Father Myocardial infarction Mother Hypertension Father Melanoma 03/14/2014 [facility] Family MemberDiagnosisAge At OnsetStatus Mother Diabetes mellitus N Mother Stroke N Father Cancer, lung N Father Myocardial infarction N Mother Hypertension N Father Melanoma N 02/21/2014 [facility] Advance Directives Order Name Results [...] before using it for clinical purposes. 09/21/2014 [facility] Advance Directives Advance Dir ectives DirectiveYes / NoEffective DateFile Name Unknown 02/21/2014 [facility] Functional Status No Data Provided for This Section
--- NOTE | 2019-12-26 02:10 | ED Fall/Injury ---
General Chief Complaint: Trauma-Non Activation Stated Complaint: FALL Nursing Triage Note: C/O ARM PAIN. ARRIVES BY EMS TO ROOM 05, PATIENT IS ALERT AND ORIENTED X4. PATIENT IS UNSURE IF SHE ANY LOC, STATES SHE DID SEE STARS. WAS CLIMBING ON A CHAIR TO HANG A CURTIAN IN THE KITCHEN AND FELL. Source: patient (SPEECH IS VERY RAPID, ERRATIC, AND MUMBLED, AND GIVES A CONVOLUTED STORY. DIFFICULT TO KEEP ON SUBJECT) History of Present Illness Date Seen by Provider: Dec 26, 2019 Time Seen by Provider: 01:46 Initial Comments PT ARRIVES VIA EMS FROM HOME STATES SHE WAS PUTTING UP A CURTAIN IN THE KITCHEN, AND WENT TO THE BATHROOM TO TAKE DOWN A CURTAIN ALBER, AND STOOD ON A STEP STOOL, AND WAS STEPPING ONTO A CHAIR AND FELL OFF THE CHAIR DOES NOT KNOW HOW SHE LANDED, BUT STATES SHE WAS PULLING HERSELF UP USING HER LEFT ARM AND THE HANDICAP BAR AND "FELT SOMETHING POP" IN HER LEFT MID HUMERUS DENIES HITTING HER HEAD OR HAVING LOSS OF CONSCIOUSNESS, STATES SHE "SAW STARS" WHEN SHE WAS ON THE CHAIR DENIES NECK OR BACK PAIN --PT HAS REPEATED REFUSED C-COLLAR AND BACKBOARD BY EMS AND ON ARRIVAL HERE PT STATES THIS OCCURRED AT "2018" AND TOOK 2 NAPROXEN, 1 TORADOL AND ZOFRAN 8MG HAS CHRONIC NECK, BACK, HIP, KNEE, SHOULDER PAIN DENIES HIP OR LEG PAIN DENIES CHEST OR ABDOMINAL PAIN NO NAUSEA/VOMITING NO HEADACHE NO VISION CHANGES NOW NO DIZZINESS NOW NO CHEST PAIN OR SHORTNESS OF BREATH OR PALPITATIONS ONLY COMPLAINT IS LEFT UPPER ARM PAIN. NO PARESTHESIAS OR MOTOR DEFICITS PT IS LEFT HANDED PT STATES SHE HAS HAD BILATERAL SHOULDER REPLACEMENT SURGERIES PT HAS HAD A MULTITUDE OF VISITS HERE--ALL FOR VARIOUS INJURIES OR PAIN COMPLAINTS LAST VISIT WAS 12/09/19 FOR AN ALLEGED DOG BITE THAT HAD OCCURRED 9 DAYS PRIOR, HAD REPORTED AT THAT TIME THAT SHE HAD RAN OUT OF HER PAIN MEDICATIONS 2 WEEKS PRIOR. 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 STATES HER ORTHOPEDIC SURGEON IS AT [facility] IN [place] Allergies and Home Medications Allergies Coded Allergies: Penicillins (Verified Allergy, Unknown, 07/16/17) cefaclor (Verified Allergy, Unknown, 06/20/16) hydroxyzine (Verified Allergy, Unknown, 06/20/16) prochlorperazine (Verified Allergy, Unknown, 06/20/16) sulfamethoxazole (Verified Allergy, Unknown, 06/20/16) trimethoprim (Verified Allergy, Unknown, 06/20/16) Home Medications Apixaban 5 Mg Tablet, 5 MG PO BID, (Reported) Carvedilol 12.5 Mg Tablet, 12.5 MG PO BID, (Reported) Ciprofloxacin HCl 500 Mg Tablet, 500 MG PO BID Prescribed by: UMANG RIOS on 07/04/19 0037 Clindamycin HCl 300 Mg Capsule, 300 MG PO QID Prescribed by: TINO MURPHY on 12/09/19 1425 Nitrofurantoin Monohyd/M-Cryst 100 Mg Capsule, 1 TAB PO BID Prescribed by: JD SNOW on 02/28/17 2309 Omeprazole Magnesium 20 Mg Tablet.dr, 40 MG PO DAILY, (Reported) Ondansetron 4 Mg Tab.rapdis, 4 MG PO Q4H PRN for NAUSEA/VOMITING-1ST LINE, (Reported) Patient Home Medication List Home Medication List Reviewed: Yes Review of Systems Review of Systems Constitutional: no symptoms reported Eyes: No Symptoms Reported Ears, Nose, Mouth, Throat: no symptoms reported Respiratory: no symptoms reported Cardiovascular: no symptoms reported Gastrointestinal: no symptoms reported Genitourinary: no symptoms reported : No (S/P HYST) Musculoskeletal: see HPI Skin: no symptoms reported Psychiatric/Neurological: No Symptoms Reported Past Hqfjlko-Yiiajs-Itcnbs Hx Past Med/Social Hx: Reviewed and Corrections made Patient Social History Alcohol Use: Past History Number of Drinks Today: AA Alcohol Beverage of Choice: Beer Recreational Drug Use: Yes (RECREATIONAL OPIATES, BENZO'S, METH, COCAINE, THC- DENIES IV USE) Drug of Choice: recreational opiates, benzos, methamphetamines, THC, COCAINE- DENIES IV USE Smoking Status: Current Everyday Smoker (3 PPD) Type Used: Cigarettes 2nd Hand Smoke Exposure: Yes Recent Foreign Travel: No Contact w/Someone Who Travel: No Recent Infectious Disease Expo: No Recent Hopitalizations: No (SHOULDER REPLACEMENT) Immunizations Up To Date Tetanus Booster (TDap): Less than 5yrs Date of Pneumonia Vaccine: Oct 04, 2010 Seasonal Allergies Seasonal Allergies: Yes Past Medical History Surgeries: Yes (BILAT SHOULDERS, RT KNEE, CEA, LIPOMA, LT ANKLE ) Appendectomy, Gallbladder, Hysterectomy, Oophorectomy, Orthopedic Respiratory: Yes Asthma, Chronic Bronchitis Cardiac: Yes Deep Vein Thrombosis, Hypertension Neurological: No 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, Menopausal Genitourinary: Yes UTI-Chronic Gastrointestinal: Yes Gastroesophageal Reflux, Liver Disease/Jaundice Musculoskeletal: Yes (R TKR;L TORN MENISCUS;BILAT SHOULDERS;L ANKLE;CHR NECK PAIN) Chronic Back Pain, Fractures Endocrine: No HEENT: No Cancer: Yes Bladder, Melanoma Did You Recieve Any Treatments: Yes What Type of Treatment Did You: Surgical Intervention Psychosocial: Yes (POLYSUBSTANCE ABUSE) Anxiety, Depression Integumentary: No Blood Disorders: No (4 DVT'S) Adverse Reaction/Blood Tranf: No Family Medical History No Pertinent Family Hx Physical Exam Vital Signs Vital Signs - First Documented 12/26/19 12/26/19 01:50 03:08 Temp 36.7 Pulse 95 Resp 20 B/P (MAP) 156/100 (118) Pulse Ox 98 O2 Delivery Room Air Capillary Refill : Less Than 3 Seconds Height, Weight, BMI Height: 5'6.00" Weight: 202lbs. 0oz. 91.739689xb; 34.00 BMI Method:Stated General Appearance: WD/WN, no apparent distress, obese, other (REEKS OF Adis SAMUELS, PT ABLE TO GET OFF EMS CART, STAND AND GET ON ER CART ON HER OWN, HOLDING LEFT ARM; SPEECH VERY RAPID, SOMEWHAT MUMBLED, ERRATIC AND DIFFICULTY TO KEEP ON SUBJECT AND GIVES CONFLICITNG AND CONVOLUTED INFORMATION) HEENT: other (EDENTULOUS) Neck: non-tender, full range of motion, normal inspection Cardiovascular: normal peripheral pulses, regular rate, rhythm, no JVD, no murmur Respiratory: chest non-tender, normal breath sounds, no respiratory distress, no accessory muscle use Peripheral Pulses: 2+ Dorsalis Pedis (R), 2+ Left Dors-Pedis (L), 2+ Radial Pulses (R), 2+ Radial Pulses (L) Gastrointestinal: normal bowel sounds, non tender, soft Back: normal inspection, no CVA tenderness, no vertebral tenderness Extremities: normal capillary refill, other (MARKED TENDERNESS TO LEFT UPPER ARM. NO TENDERNESS TO SHOULDER OR ELBOW JOINTS. NO GROSS DEFORMITY OR SWELLING. DISTAL MOTOR/SENSORY/VASCULAR INTACT. 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, no motor/sensory deficits, alert, oriented x 3 Skin: normal color, warm/dry; No ecchymosis; other (EXTENSIVE SORES/SCARS/SCABS TO ARMS AND FACE ; NO EXTERNAL EVIDENCE OF TRAUMA TO LEFT ARM OR ANYWHERE ELSE ) Procedures/Interventions Date of ETT Placement: Nov 20, 2017 Time of ETT Placement: 731 Suture Size: 5-0 Splinting and Joint Reduction : Arm Sling: Kinder Progress/Results/Core Measures Results/Orders Lab Results Laboratory Tests Test 12/26/19 02:10 Range/Units White Blood Count 8.4 4.3-11.0 10^3/uL Red Blood Count 4.12 L 4.35-5.85 10^6/uL Hemoglobin 12.7 11.5-16.0 G/DL Hematocrit 38 35-52 % Mean Corpuscular Volume 91 80-99 FL Mean Corpuscular Hemoglobin 31 25-34 PG Mean Corpuscular Hemoglobin Concent 34 32-36 G/DL Red Cell Distribution Width 12.3 10.0-14.5 % Platelet Count 221 130-400 10^3/uL Mean Platelet Volume 8.5 7.4-10.4 FL Neutrophils (%) (Auto) 51 42-75 % Lymphocytes (%) (Auto) 37 12-44 % Monocytes (%) (Auto) 8 0-12 % Eosinophils (%) (Auto) 3 0-10 % Basophils (%) (Auto) 0 0-10 % Neutrophils # (Auto) 4.3 1.8-7.8 X 10^3 Lymphocytes # (Auto) 3.1 1.0-4.0 X 10^3 Monocytes # (Auto) 0.7 0.0-1.0 X 10^3 Eosinophils # (Auto) 0.3 0.0-0.3 10^3/uL Basophils # (Auto) 0.0 0.0-0.1 10^3/uL Prothrombin Time 12.2 12.2-14.7 SEC INR Comment 0.9 0.8-1.4 Activated Partial Thromboplast Time 29 24-35 SEC Sodium Level 138 135-145 MMOL/L Potassium Level 4.1 3.6-5.0 MMOL/L Chloride Level 106 98-107 MMOL/L Carbon Dioxide Level 21 21-32 MMOL/L Anion Gap 11 5-14 MMOL/L Blood Urea Nitrogen 18 7-18 MG/DL Creatinine 0.66 0.60-1.30 MG/DL Estimat Glomerular Filtration Rate > 60 BUN/Creatinine Ratio 27 Glucose Level 97 70-105 MG/DL Calcium Level 8.9 8.5-10.1 MG/DL Serum Alcohol < 10 <10 MG/DL My Orders Orders - AMINATA MARIO DO Ed Iv/Invasive Line Start (12/26/19 01:59) Chest 1 View, Ap/Pa Only (12/26/19 01:59) Shoulder, Left, 3 Views (12/26/19 01:59) Humerus, Left, 2 Views (12/26/19 01:59) Alcohol (12/26/19 01:59) Basic Metabolic Panel (12/26/19 01:59) Cbc With Automated Diff (12/26/19 01:59) Protime With Inr (12/26/19 01:59) Partial Thromboplastin Time (12/26/19 01:59) Ed Ortho/Other Supplies Order (12/26/19 02:57) Vital Signs/I&O 12/26/19 12/26/19 12/26/19 01:50 01:51 03:08 Temp 36.7 36.7 Pulse 95 95 110 Resp 20 20 20 B/P (MAP) 156/100 (118) 156/100 (118) 148/96 Pulse Ox 98 97 98 O2 Delivery Room Air Blood Pressure Mean: 118 Progress Progress Note : Progress Note AFTER REVIEWING XRAY RESULTS, AND INFORMING HER THAT I WOULD NOT BE PRESCRIBING ANY PAIN MEDICATION, SHE HAS NAPROXEN AND TRAMADOL AT HOME WELL ZOFRAN, PT THEN PROMPTLY LEFT ER WITHOUT INSTRUCTIONS. PT WALKED OUT OF ER WITHOUT DIFFICULTY Diagnostic Imaging Comments XRAYS LEFT SHOULDER AND HUMERUS--HARDWARE IN PLACE, NO OBVIOUS FRACTURE OR DISLOCATION CXR--NO ACUTE PROCESS, BILATERAL HARDWARE IN PLACE AND ARE EQUAL ALL PENDING RADIOLOGIST REVIEW Reviewed: Reviewed by Me Departure Impression Primary Impression: Strain of left upper arm Disposition: HOME, SELF-CARE Condition: Stable Departure-Patient Inst. Referrals: NO,LOCAL PHYSICIAN (PCP/Family) Primary Care Physician Patient Instructions: Shoulder Sprain (DC) Add. Discharge Instructions: ICE TO AREA AT 20 MINUTE INTERVALS WEAR SLING NEEDED FOR COMFORT TAKE YOUR HOME PAIN MEDICATION PRESCRIBED FOLLOW UP WITH YOUR ORTHOPEDIC SURGEON THIS WEEK FOR FURTHER CARE All discharge instructions reviewed with patient and/or family. Voiced understanding. AMINATA MARIO DO Dec 26, 2019 02:09
[2019-12-26 02:19] LABS: BASOPHILS % (AUTO) 0 % (0-10); EOSINOPHILS # (AUTO) 0.3 10^3/uL (0.0-0.3); EOSINOPHILS % (AUTO) 3 % (0-10); HEMATOCRIT 38 % (35-52); HEMOGLOBIN 12.7 G/DL (11.5-16.0); LYMPHOCYTES # (AUTO) 3.1 X 10^3 (1.0-4.0); LYMPHOCYTES % (AUTO) 37 % (12-44); MEAN CORPUSCULAR HEMOGLOBIN 31 PG (25-34); MEAN CORPUSCULAR HGB CONC 34 G/DL (32-36); MEAN CORPUSCULAR VOLUME 91 FL (80-99); MEAN PLATELET VOLUME 8.5 FL (7.4-10.4); MONOCYTES # (AUTO) 0.7 X 10^3 (0.0-1.0); MONOCYTES % (AUTO) 8 % (0-12); NEUTROPHILS # (AUTO) 4.3 X 10^3 (1.8-7.8); NEUTROPHILS % (AUTO) 51 % (42-75); PLATELET COUNT 221 10^3/uL (130-400); RED CELL DISTRIBUTION WIDTH 12.3 % (10.0-14.5); WHITE BLOOD COUNT 8.4 10^3/uL (4.3-11.0)
[2019-12-26 02:28] LABS: INR 0.9 (0.8-1.4); PROTHROMBIN TIME PATIENT 12.2 SEC (12.2-14.7)
[2019-12-26 02:45] LABS: BUN/CREATININE RATIO 27; CALCIUM 8.9 MG/DL (8.5-10.1); CARBON DIOXIDE 21 MMOL/L (21-32); CHLORIDE 106 MMOL/L (98-107); CREATININE SERUM 0.66 MG/DL (0.60-1.30); GFR ESTIMATED > 60; GLUCOSE 97 MG/DL (70-105); POTASSIUM 4.1 MMOL/L (3.6-5.0); SODIUM 138 MMOL/L (135-145)
[2019-12-26 03:08] VITALS: BP 148/96
--- NOTE | 2019-12-26 05:59 | Diagnostic Imaging Report ---
INDICATION: Left shoulder pain TECHNIQUE: Three views of the left shoulder CORRELATION STUDY: 07/16/2017 FINDINGS: Postoperative changes of reverse left shoulder arthroplasty. Alignment appears to be generally maintained. No acute fracture. Slight diastases at the acromioclavicular joint appears generally stable. Additional metallic density projects just below the medial aspect of the left clavicle. The visualized soft tissues are unremarkable. IMPRESSION: 1. Postoperative changes of reverse left shoulder arthroplasty. No acute bony abnormality. Alignment appears generally anatomic. Dictated by: Dictated on workstation # [id number]
--- NOTE | 2019-12-26 06:00 | Diagnostic Imaging Report ---
INDICATION: Left shoulder pain. TECHNIQUE: Single view chest 2:48 AM. CORRELATION STUDY: 11/20/2017 FINDINGS: The heart size, mediastinal configuration and pulmonary vascularity are within normal limits. Diffuse prominent interstitial markings throughout both lung jean-baptiste likely chronic. No consolidating infiltrate. Postop changes bilateral shoulder arthroplasty. Multiple buttons are projecting over the left chest. IMPRESSION: 1. Negative for acute abnormality of the chest. Likely chronic changes of the lung parenchyma. Dictated by: Dictated on workstation # [id number]
--- NOTE | 2019-12-26 06:01 | Diagnostic Imaging Report ---
INDICATION: Left shoulder pain TECHNIQUE: 2 views of the left humerus CORRELATION STUDY: None FINDINGS: Postoperative changes of reverse left shoulder arthroplasty. Alignment appears to be anatomic. There is no acute bony abnormality about the humerus. Limited imaging of the elbow unremarkable. Mild soft tissue prominence suggested. IMPRESSION: 1. Negative for acute bony abnormality of the humerus. Postop changes of the left shoulder prosthesis. Dictated by: Dictated on workstation # [id number]
== END 2019-12-26 03:08 | disposition left against medical advice (07) ==
LOC: EDUNIT# 01:47 → ER 01:49
DX: S46.912A Strain of unspecified muscle, fascia and tendon at shoulder and upper arm level, left arm, initial encounter (principal); I10 Essential (primary) hypertension; K21.9 Gastro-esophageal reflux disease without esophagitis; F17.210 Nicotine dependence, cigarettes, uncomplicated; Z91.14 Patient's other noncompliance with medication regimen; Z96.611 Presence of right artificial shoulder joint; Z96.612 Presence of left artificial shoulder joint; Z96.651 Presence of right artificial knee joint; Z85.828 Personal history of other malignant neoplasm of skin; Z85.51 Personal history of malignant neoplasm of bladder; Z86.718 Personal history of other venous thrombosis and embolism; Z88.0 Allergy status to penicillin; Z88.1 Allergy status to other antibiotic agents; Z88.2 Allergy status to sulfonamides; Z88.8 Allergy status to other drugs, medicaments and biological substances; Z79.01 Long term (current) use of anticoagulants; W07.XXXA Fall from chair, initial encounter
CPT/HCPCS: 36415; 71045; 73030; 73060; 80048; 80320; 85025; 85610; 85730

== ENCOUNTER 2020-03-20 14:21 | Emergency (ER) | payer MEDICARE, MEDICAID ==
[~2020-03-20] VITALS: Ht 167 cm; Wt 99.0 kg
[2020-03-20 14:21] VITALS: BP 171/111
--- NOTE | 2020-03-20 14:30 | NUR ---
Attempted to get pt in gown for US; pt refused.
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
--- NOTE | 2020-03-20 15:30 | NUR ---
Pt walking toward EMS doors. When questioned, pt reports needing to take dog out to bathroom. Pt seen walking past entrance to ED and did not return.
--- NOTE | 2020-03-20 15:49 | NUR ---
Pt has not returned to ED at this time. It is assumed pt has left AMA.
--- OUTSIDE RECORDS SUMMARY | 2020-03-20 18:18 | XMS REPORT ---
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 [place] Address [address] [place] [address] Care Team Providers Care Cuff Matcher Name Role Phone NO, LOCAL PHYSICIAN Unavailable Unavailable K, [facility] Unavailable MAURO RILEY Unavailable Unavailable MAURO RILEY Unavailable MAXIMILIANO BARKER Unavailable Unavailable BENJAMIN MARTIN, ANNIE Evans Unavailable Unavailable ZARINA BARRY, LANE Granados Unavailable Unavailable RAGINI DO, GOPI Evans Unavailable Unavailable MARY BARRY, REUBEN Evans Unavailable Unavailable JEFFREY LYNCH, TINO Jordan Unavailable Unavailable ELVIS MARTIN, GURPREET Wei Unavailable Unavailable EDY MARTIN, JD Mcdonnell Unavailable Unavailable VENICE MARTIN, ANNABELLE Garza Unavailable Unavailable HARMEET JEAN-BAPTISTE Unavailable Unavailable HARMEET JEAN-BAPTISTE Unavailable Unavailable HARMEET JEAN-BAPTISTE Unavailable Unavailable Unavailable Unavailable PCP, TRANSITION Unavailable Unavailable SUZANNE HSIEH Unavailable Unavailable Unavailable Unavailable Unavailable Unavailable Allergies Normalized Allergy Reported Date of Reaction(s) Care Provider Facility Allergy Type classification allergen Allergy Onset Drug Allergy Opioid fentaNYL UNKNOWN HARMEET JEAN-BAPTISTE Not Availa ble (4 sources.) Agonists (05425) Drug Allergy Sulfonamides Sulfamethoxazo 06-20-2016 - UNKNOWN GOPI EID Not Available (24 sources.) (antibiotic) DO susan (37974) Translations: [ SULFA (SULFONAMIDE ANTIBIOTICS)] Medications Medication Ingredient Drug Dose Dates Status Sig Sig Care Class(es) (Normalized) (Original) Provid er no Ondansetron Serotonin-3 4 mg 10-08-19 no no no no information Receptor 17 - informat information information name (1 source.) Antagonist 10-15-19 ion 17 Problems Active Problems Problem Normalized Date Last Normalized Normalized Provider Fa cility Classification Problem(s) Recorded Problem Problem Sta tus Duration Esophageal Gastro-esophag Chronic Active TINO Not Av ailable disorders (6 eal reflux SYED MURPHY (63890) sources.) disease without esophagitis Spondylosis; Low back pain no information Active MAXIMILIANO MJ Not Available intervertebral Translations: (50392) disc [ OTHER disorders; CERVICAL DISC other back DEGENERATION, problems (11 UNSP C] sources.) Substance-rela Nicotine Chronic Active TINO Not Avai lable sixto disorders dependence, SYED MURPHY (31875) (21 sources.) cigarettes, uncomplicated Osteoarthritis Primary Chronic Active GURPREET LEAL , Not Available (14 sources.) osteoarthritis MD (40948) , left shoulder Past or Other Problems Problem Normalized Date Last Normalized Normalized Provider Fa mike Classification Problem(s) Recorded Problem Problem Sta tus Duration Other Abnormal Episodic Completed TINO Not Available screening for results of SYED MURPHY (98388) suspected thyroid conditions function (not mental studies disorders or infectious disease) (6 sources.) Residual Acquired Episodic Completed JD SNOW , Not Avai lable codes; absence of MD (63593) unclassified both cervix (3 sources.) and uterus Other Disorders of Episodic Completed HARMEET ESTIVEN Not Avail able connective bursae and (13646) tissue disease tendons in (3 sources.) shoulder region, unspecified External cause Fall (on) no information no information MAXIMILIANO MJ Not Available codes: Fall (6 (from) (61509) sources.) unspecified stairs and steps, initial encounter Other Incomplete Episodic Completed LANE Not Availab le connective rotator cuff ZARINA , DO (13470) tissue disease tear or (8 sources.) rupture of left shoulder, not specified as traumatic Other roasterman Episodic Completed MAXIMILIANO MJ Not Availabl e aftercare (6 (current) use (69944) sources.) of opiate analgesic Nausea and Nausea with Episodic Completed ANNABELLE Not Avail able vomiting (10 vomiting, VENICE , (81386) sources.) unspecified MD Other nervous Other acute Episodic Completed TINO Not Av ailable system postprocedural SYED MURPHY (01540) disorders (17 pain sources.) External cause Other external no information no information MAXMIILIANO MJ Not Available codes: cause status (03207) Unspecified (6 sources.) Other Other long Episodic Completed GURPREET LEAL , Not Av ailable aftercare (20 term (current) MD (57875) sources.) drug therapy Other Pain in left Episodic Completed GURPREET LEAL , Not Available non-traumatic shoulder (75955) joint disorders (6 sources.) Other Pain in right Episodic Completed ANNIE Not Avai lable connective lower leg MD BENJAMIN (85325) tissue disease (14 sources.) Residual Procedure and Episodic Completed HARMEET ESTIVEN Not Avai lable codes; treatment not (42320) unclassified carried out (2 sources.) because of other contraindicati on Residual Procedure and Episodic Completed ANNIE Not Avai lable codes; treatment not MD BENJAMIN (56553) unclassified carried out (7 sources.) due to patient leaving prior to being seen by health care provider Sprains and Strain of Episodic Completed MAXIMILIANO MJ Not Availa ble strains (6 muscle, fascia (10624) sources.) and tendon of lower back, initial encounter Residual Surgical or Episodic Completed HARMEET ESTIVEN Not Availa ble codes; other (07080) unclassified procedure not (2 sources.) carried out because of contraindicati on Other Unspecified Episodic Completed HARMEET ESTIVEN Not Availa ble connective rotator cuff (86139) tissue disease tear or (3 sources.) rupture [...] 99.5) 05/20/2016 5:00pm Temperature (Calculated Celsius) 36. 69058 degrees C (36.4 - 37.5) 05/20/2016 5:00pm [...] inches 05/20/2016 5:00pm Height (Calculated Centimeters) 170. 069085 cm 05/20/2016 5:00pm Weight (Pounds) 200 pounds 05/20/2016 5:00pm Weight (Calculated Kilograms) 90.718 475 kilograms 05/20/2016 5:00pm Capillary Refill Capillary Refill Less Than 3 Seconds 05/20/2016 5:00pm Height 5 ft 7 in Weight 200 lb Body Mass Index 31.3 kg/m^2 Vital Response Date/Time Temperature (Fahrenheit) 97.4 degree s F (97.6 - 99.5) 05/26/2016 1:53pm Temperature (Calculated Celsius) 36. 67507 degrees C (36.4 - 37.5) 05/26/2016 1:53pm [...] inches 05/26/2016 11:50am Height (Calculated Centimeters) 167. 417504 cm 05/26/2016 11:50am Weight (Pounds) 250 pounds 05/26/2016 11:50am Weight (Calculated Kilograms) 113.39 8094 kilograms 05/26/2016 11:50am Capillary Refill Capillary Refill Less Than 3 Seconds 05/26/2016 11:50am Height 5 ft 6 in Weight 250 lb Body Mass Index 40.4 kg/m^2 Vital Response Date/Time Temperature (Fahrenheit) 98.1 degree s F (97.6 - 99.5) 07/21/2016 5:00am Temperature (Calculated Celsius) 36. 86873 degrees C (36.4 - 37.5) 07/21/2016 5:00am [...] inches 07/21/2016 5:00am Height (Calculated Centimeters) 167. 354593 cm 07/21/2016 5:00am Weight (Pounds) 220 pounds [...] inches 08/05/2016 11:08am Height (Calculated Centimeters) 167. 784179 cm 08/05/2016 11:08am Weight (Pounds) 220 pounds 08/05/2016 11:08am Weight (Calculated Grams) 65179.322 gm 08/05/2016 11:08am Weight (Calculated Kilograms) 99.790 322 kilograms 08/05/2016 11:08am Capillary Refill Capillary Refill Less Than 3 Seconds 08/05/2016 11:08am Height 5 ft 6 in Weight 220 lb Body Mass Index 35.5 kg/m^2 Vital Response Date/Time Temperature (Fahrenheit) 97.5 degree s F (97.6 - 99.5) 11/14/2016 5:37pm Temperature (Calculated Celsius) 36. 85705 degrees C (36.4 - 37.5) 11/14/2016 5:37pm [...] inches 11/14/2016 4:00pm Height (Calculated Centimeters) 172. 385881 cm 11/14/2016 4:00pm Weight (Pounds) 220 pounds 11/14/2016 4:00pm Weight (Calculated Kilograms) 99.790 322 kilograms 11/14/2016 4:00pm Capillary Refill Capillary Refill Less Than 3 Seconds 11/14/2016 4:50pm Height 5 ft 8 in Weight 220 lb Body Mass Index 33.5 kg/m^2 Vital Response Date/Time Temperature (Fahrenheit) 97.5 degree s F (97.6 - 99.5) 11/14/2016 5:37pm Temperature (Calculated Celsius) 36. 18064 degrees C (36.4 - 37.5) 11/14/2016 5:37pm [...] inches 11/14/2016 4:00pm Height (Calculated Centimeters) 172. 762423 cm 11/14/2016 4:00pm Weight (Pounds) 220 pounds [...] See Medication Section Referrals NO,LOCAL PHYSICIAN - [facility] Care Physician Additional Instructions/Education Al l discharge instructions [...] See Medication Section Referrals NO,LOCAL PHYSICIAN - [facility] Care Physician [facility] - Additional Instructions/Education Al l discharge instructions [...] Discharge Improved Prescriptions See Medication Section Referrals [facility] - Primary Care Physician Discharge Date 11/14/16 6:15pm Disposition 01 HOME, SELF-CARE Condition at Discharge Stable Instructions/Education Provided Low Back Pain (DC) Prescriptions See Medication Section Referrals NO,LOCAL PHYSICIAN - [facility] Physician Additional Instructions/Education Al l discharge instructions [...] Prescriptions See Medication Section Referrals NO,LOCAL PHYSICIAN [facility] Physician Additional Instructions/Education Al l discharge [...] 02-28-2017 Emergency department no information no name no organization name - patient visit 03-01-2017 01-11-2017 Emergency department no information no name no organization name - patient visit 01-11-2017 01-09-2017 Emergency department no information no name no organization name - patient visit 01-09-2017 06-20-2016 Emergency department no information no name no organization name - patient visit 06-20-2016 03-19-2020 Patient encounter no information [facility] (no phone) 03-06-2020 Patient encounter no information SUZANNE HSIEH ([facility] procedure phone) [facility] (no phone) 03-05-2020 Patient encounter no information SUZANNE HSIEH ([facility] o [facility] procedure phone) (no phone) [facility] (no phone) 01-15-2020 Patient encounter no information [facility] PCP (no [facility] procedure phone) [facility] (no phone) 12-28-2019 Patient encounter no information (no phone) [facility] (no phone) 12-29-2016 Patient encounter no information no name no or ganization name procedure 10-08-2016 Patient encounter no information no name no or ganization name - procedure 10-08-2016 Medical Equipment No Information Payers Normalized Payer Value Medicare no information Advance Directives Directive Response Recor ded Date/Time Advance Directives No 5:47pm Resuscitation Status Full Code 05/20/16 5:47pm Directive Response Recor ded Date/Time Advance Directives No 11:50am Resuscitation Status Full Code 05/26/16 11:50am Directive Response Recor ded Date/Time Advance Directives No 5:00am Health Care Power of Hand Mixer No 07/21/16 5:00am Organ Donor No 07/21/16 5:00am Resuscitation Status Full Code 07/21/16 5:00am Directive Response Recor ded Date/Time Advance Directives No 11:08am Health Care Power of Hand Mixer No 08/05/16 11:08am Organ Donor No 08/05/16 11:08am Resuscitation Status Full Code 08/05/16 11:08am Directive Response Recor ded Date/Time Advance Directives No 4:23pm Health Care Power of Hand Mixer No 11/14/16 4:23pm Organ Donor No 11/14/16 4:23pm Resuscitation Status Full Code 11/14/16 4:23pm Discharge Instructions No hospital discharge instructions.No hospital discharge instructions.No hospital discharge instructions.No hospital discharge instructions.No hospital discharge instructions. Summary Purpose eClinicalWorks Submission Additional Source Comments This clinical document has been generated using [employer] software that has been certified by the Office of the National Coordinator for Health Information Technology (ONC 15.99.04.3023.Diam.31.00.0.207950) and the National Committee for Residential Caregiver (NCQA, as an eMeasure certified technology). FOR [...] BASED ON T HE PRIMARY CLINICAL RECORDS. [employer]. provides no warranty or guara ntee of the accuracy or completeness of information in this document.The followi ng information is based on time limited clinical information
--- OUTSIDE RECORDS SUMMARY | 2020-03-20 18:19 | XMS REPORT | Clinical Summary ---
Author Author [facility] Organization [facility] Address Unknown Phone Unavailable Care Team Providers Care Dance Studio Manager Name Role Phone Angelica Albrecht CATHODE RAY TUBE SALVAGE PROCESSOR Unavailable Davina Nicole CATHODE RAY TUBE SALVAGE PROCESSOR Unavailable Unavailable [place] Gdooy DO Unavailable Deandra Diaz DO PCP Source Comments Some departments are not documenting in the electronic medical record. 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 Temperature 18 08/03/2019 11:28 AM CDT Respiratory Rate 100% 08/03/2019 11:28 AM CDT Oxygen Saturation - - Inhaled Oxygen Concentration 88.5 kg (195 lb) 08/03/2019 11:28 AM CDT Weight 167.6 cm (5' 6") 08/03/2019 11:28 AM CDT Height 31.47 08/03/2019 11:28 AM CDT Body Mass Index Plan of Treatment Health Maintenance Due Date Last Done Comments MEDICARE ANNUAL WELLNESS 1959 VISIT HIV SCREENING 1974 DILATED EYE EXAM 1977 DTAP/TDAP VACCINES (1 - 1977 Tdap) FOOT EXAM 1977 HBA1C 1977 HEPATITIS C SCREENING 1977 PHYSICAL (COMPREHENSIVE) 1977 EXAM PNEUMONIA VACCINE (DM) 1977 CERVICAL CANCER SCREENING 1980 BREAST CANCER SCREENING 1999 COLORECTAL CANCER 2009 SCREENING SHINGLES RECOMBINANT 2009 VACCINE (1 of 2) INFLUENZA VACCINE 07/04/2020 Results Not on filefrom Last 3 Months Insurance Type Payer Benefit Subscriber ID Effective Phone Address Plan / Dates Group Medicare MEDICARE MEDICARE xxxxxxxxxxx [id number] PART A AND resent B Advance Directives 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
--- OUTSIDE RECORDS SUMMARY | 2020-03-20 18:19 | XMS REPORT | Continuity of Care Document ---
Demographics Preferred Language Unknown Marital Status Unknown Faith Affiliation Unknown Race Unknown Ethnic Group Unknown Author Organization Unknown Address Unknown Phone Unavailable Allergies There is no data. Medications There is no data. Problems There is no data. Procedures There is no data. Results Test Result Range Urine Culture, Routine - 06/11/16 12:56 Urine Culture, Routine Note Urine Culture, Routine - 06/25/16 13:02 Urine Culture, Routine Note Encounters ACCT No. Visit Date/Time Discharge Status Pt. Type Provider Facility Loc./Unit Complaint [id number] 06/14/2016 13:05:00 Document Registration [id number] 05/11/2016 09:32:00 05/11/2016 23:59:5 9 [facility] Outpatient [id number] 06/28/2016 07:05:00 Document Registration
--- OUTSIDE RECORDS SUMMARY | 2020-03-20 18:19 | XMS REPORT | Continuity of Care Document ---
Author Author CustExREID Organization [facility] [employer] Address Unknown Phone Unavailable Care Team Providers Care Signal Technician Name Role Phone [facility] Unavailable Unavailable Problems Problem Status Onset Date Classification Date Reported Comments Source Essential hypertension Active 02/19/2014 Problem 01/28/2016 [facility] HTN, Unspecified 02/19/2014 Diagnosis 09/21/2014 [facility] Left shoulder pain 02/19/2014 Diagnosis 09/21/2014 [facility] Anxiety Diagnosis 09/21/2014 [facility] Nose abnormality 02/19/2014 Diagnosis 09/21/2014 [facility] [place] [facility] PAIN IN JOINT INVOLVING SHOULDER REGION Active 02/14/2014 [facility] ACUTE VENOUS EMBOLISM AND THROMBOSIS OF Active 02/14/2014 [facility] DVT (deep venous thrombosis) 02/14/2014 Diagnosis 09/21/2014 [facility] un[facility] Medications Medication Details Route Status Patient Instructions Ordering Provider Order Date Source Acetaminophen 500 MG / Hydrocodone Sahra trate 5 MG Oral Tablet take 1 tablet by oral route every 6 kathy rs as needed for pain ORAL Active 02/21/2014 [facility] Alprazolam 0.25 MG Oral Tablet take 1 tablet (0.25MG) by ORAL route 3 times daily prn anxiety ORAL [facility] Warfarin Sodium 10 MG Oral Tablet take 1 tablet by oral route every day ORAL Active 02/19/2014 [facility] carvedilol 12.5 MG Oral Tablet take 1 tablet by oral route 2 times every day with food ORAL Active 02/14[facility] hydrochlorothiazide 25 mg tablet take 1 tablet by oral route every AM ORAL Active 02/14/2014 [facility] Acetaminophen 500 MG / Hydrocodone Sahra trate 5 MG Oral Tablet take 1 tablet by oral route every 6 kathy rs as needed for pain ORAL Active 02/14/2014 [facility] Warfarin Sodium 7.5 MG Oral Tablet take 1 tablet by oral route every day ORAL Active 02/14/2014 [facility] Allergies, Adverse Reactions, Alerts Substance Category Reaction Severity Reaction type Status Date Reported Comments Source Penicillins Anaphylaxis propensity to adverse reacti ons to drug Active 03/14/2014 [facility] cefaclor Hi ernestina drug allergy Active 03/14/2014 [facility] sulfamethoxazole dystonia drug allergy Active 03/14/2014 [facility] PROCHLORPERAZINE EDISYLATE dystonia drug allergy Active 03/14/2014 [facility] Cefaclor drug allergy Hived active 02/14/2014 [facility] Immunizations Immunization Date Given Site Status Last Updated Comments Source pneumo (2 yrs or older) (PPV23) 10/04/2012 completed B bethany [facility] [place] Tdap 10/04/2012 completed Bachelor [facility] Results Order Name Results Value Reference Range Date Interpretation Comments Source Protime PT 12.8 second 11.5 - 15.0 02/19/2014 N [facility] Protime INR 1.0 02/19/2014 NA [facility] Protime PT 13.3 second 11.5 - 15.0 02/15/2014 N [facility] Protime INR 1.0 02/15/2014 NA [facility] Pathology Reports No Data Provided for This Section Diagnostic Reports Report Value Date Source XR Shoulder Min 2V LT [facility] [address] [place] [id number] Radiology Reports CPT Codes; 21375 CDM Codes: 3668591 (XR Shoulder Min 2V LT) Reason for exam: SHOULDER PAIN Report THREE VIEWS OF THE LEFT SHOULDER Clinical history: Pain, injury. Findings: There is no fracture or dislocation. Alignment is normal. IMPRESSION: No acute abnormalities. Dictating Devi Murrieta Dictated 02/14/2014 17:28 Signing Devi Murrieta Location [id number] Final Dictated by: DEVI NICHOLE MD Signed by: DEVI NICHOLE MD 02/14/14 17:29 Ingot Stripper: IGOR 02/14/14 17:29 ROSA ISELA CHING [id number] [facility] Notes Results Value Date Source Progress [...] by spouse. Has been living in domestic skilled nursing for 3 years, spouse found her Wednesday. 03/14/2014 [facility] Discharge Summaries No Data Provided for This Section History and Physicals No Data Provided for This Section Vital Signs Vital Sign Value Date Comments Source Body height 66.00 [in_us] 02/19/2014 [facility] Body Weight (Measured) 248.40 [lb_av] 02/19/2014 [facility] Intravascular Systolic 132 mm[ Hg] 02/19/2014 [facility] Intravascular Diastolic 100 mm [Hg] 02/19/2014 [facility] Heart Beat 100 /min 02/19/2014 [facility] Body Temperature 97.3 [degF] 02/19/2014 [facility] Respiratory Rate 16 /min 02/19/2014 [facility] Body height 66.00 [in_us] 02/19/2014 [facility] Body Weight (Measured) 248.40 [lb_av] 02/19/2014 [facility] Intravascular Systolic 132 mm[ Hg] 02/19/2014 [facility] Intravascular Diastolic 100 mm [Hg] 02/19/2014 [facility] Heart Beat 100 /min 02/19/2014 [facility] Body Temperature 97.3 [degF] 02/19/2014 [facility] Respiratory Rate 16 /min 02/19/2014 [facility] Body mass index 40.09 kg/meter (2) 02/19/2014 [facility] Body height 66.00 [in_us] 02/14/2014 [facility] Body Weight (Measured) 249.80 [lb_av] 02/14/2014 [facility] Intravascular Systolic 124 mm[ Hg] 02/14/2014 [facility] Intravascular Diastolic 78 mm[ Hg] 02/14/2014 [facility] Heart Beat 80 /min 02/14/2014 [facility] Body Temperature 97.8 [degF] 02/14/2014 [facility] Respiratory Rate 16 /min 02/14/2014 [facility] Body height 66.00 [in_us] 02/14/2014 [facility] Body Weight (Measured) 249.80 [lb_av] 02/14/2014 [facility] Intravascular Systolic 124 mm[ Hg] 02/14/2014 [facility] Intravascular Diastolic 78 mm[ Hg] 02/14/2014 [facility] Heart Beat 80 /min 02/14/2014 [facility] Body Temperature 97.8 [degF] 02/14/2014 [facility] Respiratory Rate 16 /min 02/14/2014 [facility] Body mass index 40.31 kg/meter (2) 02/14/2014 [facility] Encounters Location Location Details Encounter Type Encounter Number Reason For Visit Attending Provider ADM Date DC Date [facility] [id number] [facility] 03/14/2014 03/14/2014 [facility] Medical Building [id number] [facility] 02/23/2014 02/23/2014 [facility] Unknown [id number] [facility] 02/21/2014 02/21/2014 [facility] [id number] [facility] 02/21/2014 02/21/2014 [facility] Medical Building [id number] [facility] 02/20/2014 02/20/2014 [facility] 06LAB HANSA 06LAB HANSA N [id number] MAURICIO RAHMAN MD 02/19/2014 02/19/2014 Active [facility] Medical Building [id number] [facility] 02/19/2014 02/19/2014 [facility] Medical Building [id number] _MAPID:[id number] T[facility]ana [facility] 02/19/2014 02/19/2014 [facility] Medical Building [id number] [facility] 02/16/2014 02/16/2014 [facility] Medical Building [id number] Tawana Rahman 02/15/2014 02/15/2014 [facility] 006 006 O [id number] 719.41 TAWANA RAHMAN MD 02/14/2014 02/14/2014 Active [facility] Medical Building Unknown [id number] Tawana Rahman 02/14/2014 02/14/2014 [facility] Medical Building [address] [id number] _MAPID:[id number] Tawana pierson 02/14/2014 02/14/2014 [facility] [id number] Louis Bolden MD 01/16/2013 01/16/2013 [facility] [id number] Aleks Zimmer 01/10/2013 01/10/2013 [facility] Procedures Procedure Code Date Perfomer Comments Source OFFICE/OUTPATIENT VISIT, EST 9 [id number] 02/19/2014 [facility] OFFICE/OUTPATIENT VISIT, EST 02/19/2014 [facility] Office/outpatient visit, new [id number] 02/14/2014 [facility] Office/outpatient visit, new 02/14/2014 [facility] Electrocardiogram report 01/16/2013 [facility] Electrocardiogram report 01/10/2013 [facility] Plan of Care Plan of Care Date Source DateTypeActionStatus Referral Referred To: [facility] [address] [place], [place], [phone] Ordered: [facility] Orthopedics for Evaluate and treat. ordered Referral Referred To: [facility] [address] [place], [phone] [facility] for Evaluate and treat. ordered Referral Ordered: Prothrombin Time (PT) ordered Referral Ordered: X-ray exam of shoulder, Complete, Min 2 Views Left shoulder ordered Future Order: Lab Order CBC With Differential/Platelet ([id number]) Ordered Future Order: Lab Order Comp. Metabolic Panel (14) ([id number]) Ordered Future Order: Lab Order Lipid Panel ([id number]) Ordered Future Order: Lab Order TSH ([id number]) Ordered Future Order: Lab Order Urinalysis, Complete ([id number]) Ordered Future Order: Lab Order Hemoglobin A1c ([id number]) Ordered Future Order: Lab Order Prothrombin Time (PT) ([id number]), Collected on: Ordered DateTypeProblemGoalInterventionStatusStart Date Unknown. 03/14/2014 [facility] Social History Social History Date Source TypeDescriptionQuantityDate coffee cigarettes 20.00 Smoking Status Current every day smoker 20.00 packs per day 09/21/2014 [facility] TypeDescriptionQuantityDate Captured Alcohol Use Details [...] 20 per day, Pack Year: 800 03/14/2014 [facility] TypeDescriptionQuantityDate Alcohol guthrie colada Caffeine coffee soda cigarettes 20.00 Smoking Status Current every day smoker 20.00 per day 02/21/2014 [facility] TypeDescriptionQuantityDate Alcohol guthrie colada Caffeine coffee soda cigarettes 20.00 Smoking Status Current every day smoker 20.00 per day 02/21/2014 [facility] Assessment and Plan No Data Provided for This Section Family History Value Date S ource Family MemberDiagnosisAge At OnsetStatus Mother Diabetes mellitus N Mother Stroke N Father Cancer, lung N Father Myocardial infarction N Mother Hypertension N Father Melanoma N 09/21/2014 [facility] Family MemberDiagnosisAge At Onset Mother Diabetes mellitus Mother Stroke Father Cancer, lung Father Myocardial infarction Mother Hypertension Father Melanoma 03/14/2014 [facility] Family MemberDiagnosisAge At OnsetStatus Mother Diabetes mellitus N Mother Stroke N Father Cancer, lung N Father Myocardial infarction N Mother Hypertension N Father Melanoma N 02/21/2014 [facility] Advance Directives Order Name Results [...] before using it for clinical purposes. 09/21/2014 [facility] Advance Directives Advance Dir ectives DirectiveYes / NoEffective DateFile Name Unknown 02/21/2014 [facility] Functional Status No Data Provided for This Section
== END 2020-03-20 15:51 | disposition left against medical advice (07) ==
LOC: EDUNIT# 14:21 → ER 14:23
DX: M79.604 Pain in right leg (principal); I10 Essential (primary) hypertension; K21.9 Gastro-esophageal reflux disease without esophagitis; Z88.0 Allergy status to penicillin; Z88.1 Allergy status to other antibiotic agents; Z88.2 Allergy status to sulfonamides; Z88.8 Allergy status to other drugs, medicaments and biological substances; Z79.01 Long term (current) use of anticoagulants; Z77.22 Contact with and (suspected) exposure to environmental tobacco smoke (acute) (chronic); Z86.718 Personal history of other venous thrombosis and embolism; Z96.651 Presence of right artificial knee joint; Z85.820 Personal history of malignant melanoma of skin; Z85.51 Personal history of malignant neoplasm of bladder
CPT/HCPCS: 99283

== ENCOUNTER 2020-03-30 23:44 | Emergency (ER) | payer MEDICARE, MEDICAID ==
[~2020-03-30] VITALS: Ht 167 cm; Wt 110.0 kg
[2020-03-31] VITALS: BP 112/96
[2020-03-31 00:32] LABS: BASOPHILS % (AUTO) 0 % (0-10); EOSINOPHILS # (AUTO) 0.2 10^3/uL (0.0-0.3); EOSINOPHILS % (AUTO) 2 % (0-10); HEMATOCRIT 39 % (35-52); HEMOGLOBIN 13.4 G/DL (11.5-16.0); LYMPHOCYTES # (AUTO) 3.5 X 10^3 (1.0-4.0); LYMPHOCYTES % (AUTO) 34 % (12-44); MEAN CORPUSCULAR HEMOGLOBIN 31 PG (25-34); MEAN CORPUSCULAR HGB CONC 34 G/DL (32-36); MEAN CORPUSCULAR VOLUME 91 FL (80-99); MEAN PLATELET VOLUME 8.8 FL (7.4-10.4); MONOCYTES # (AUTO) 0.7 X 10^3 (0.0-1.0); MONOCYTES % (AUTO) 7 % (0-12); NEUTROPHILS # (AUTO) 5.7 X 10^3 (1.8-7.8); NEUTROPHILS % (AUTO) 56 % (42-75); PLATELET COUNT 285 10^3/uL (130-400); RED CELL DISTRIBUTION WIDTH 12.5 % (10.0-14.5); WHITE BLOOD COUNT 10.2 10^3/uL (4.3-11.0)
--- NOTE | 2020-03-31 00:38 | NUR ---
PT REFUSING VITALS AND MONITORING EQUIPTMENT, REFUSING XRAYS. STATES ALL SHE WANTS IS A D-DIMER TEST AND PAIN MEDICINE. MD NOTIFIED; NO NEW ORDERS TO FOLLOW.
[2020-03-31 00:39] LABS: CHLORIDE 110 MMOL/L (98-107); POTASSIUM 3.4 MMOL/L (3.6-5.0); SODIUM 140 MMOL/L (135-145)
[2020-03-31 00:41] LABS: CALCIUM 8.7 MG/DL (8.5-10.1); GLUCOSE 124 MG/DL (70-105)
[2020-03-31 00:42] LABS: CARBON DIOXIDE 19 MMOL/L (21-32); PROTHROMBIN TIME PATIENT 13.4 SEC (12.2-14.7)
[2020-03-31 00:45] LABS: GFR ESTIMATED > 60
--- NOTE | 2020-03-31 00:45 | ED Lower Extremity ---
General Chief Complaint: Lower Extremity Stated Complaint: LEG PAIN Nursing Triage Note: BIBA FOR R LEG PAIN X9 WEEKS. PT THINKS SHE HAS A BLOOD CLOT; HX OF DVT, NO THINNERS. GENERALIZED PAIN THROUGHOUT THE LEG, NO REDNESS, SWELLING, OR WARMTH. DENIES CP OR SOB. Nursing Sepsis Screen: No Definite Risk Source: patient History of Present Illness Date Seen by Provider: Mar 30, 2020 Time Seen by Provider: 23:51 Initial Comments PT ARRIVES VIA EMS PT ARRIVES WITH HER DOG, AND WAS PICKED UP IN [employer] PT STATES SHE HAS BEEN WALKING HER DOG, THEN CALLED EMS C/O ONGOING RIGHT UPPER LEG PAIN FOR THE LAST 9 WEEKS--STATES HER LEG HURTS FROM HIP TO KNEE STATES PAIN HAS BEEN WORSE FOR THE LAST 2-3 WEEKS SYMPTOMS NO DIFFERENT TONIGHT IN ANY WAY. RATES PAIN "8 OR 9" WITH STANDING, AND "6 OR 7" AT REST. NO INJURY STATES 9 WEEKS AGO, SHE STOOD UP FROM A CHAIR AND "FELT A POP" IN HER THIGH "THINKS SHE HAS A BLOOD CLOT" STATES SHE HAS BEEN SEEN MULTIPLE TIMES BY DIFFERENT PROVIDERS AT DIFFERENT FACILITIES FOR THIS PROBLEM--STATES SHE HAS SEEN DR. MONTES IN [place] X 2, AND HAS BEEN TO [facility] AND SEEN VARIOUS PROVIDERS THERE X 3 FOR THIS PROBLEM--CLAIMS SHE HAS NOT HAD ANY TESTS OF ANY KIND FOR THIS PROBLEM, AND NO RX'S. HAS NOT TAKEN ANYTHING FOR PAIN AT ANY TIME, BUT IS BELLIGERENT AND CURSING AND DEMANDING PAIN MEDICATION SOON SHE ARRIVES. NO PARESTHESIAS OR MOTOR DEFICITS NO SWELLING TO LEG NO DISCOLORATION TO LEG NO FEVER NO CHEST PAIN, NO SHORTNESS OF BREATH, NO PALPITATIONS, NO DIZZINESS OR SYNCOPE PT STATES SHE HAD A DVT IN HER SUBCLAVIAN IN 2017--IS NOT ON BLOOD THINNERS OR ASPIRING PT IS COMPLETELY FIXATED ON "D-DIMER" TEST. PCP: [facility] ALSO SEES DR. MONTES Allergies and Home Medications Allergies Coded Allergies: Penicillins (Verified Allergy, Unknown, 07/16/17) cefaclor (Verified Allergy, Unknown, 06/20/16) hydroxyzine (Verified Allergy, Unknown, 06/20/16) prochlorperazine (Verified Allergy, Unknown, 06/20/16) sulfamethoxazole (Verified Allergy, Unknown, 06/20/16) trimethoprim (Verified Allergy, Unknown, 06/20/16) Home Medications Apixaban 5 Mg Tablet, 5 MG PO BID, (Reported) Carvedilol 12.5 Mg Tablet, 12.5 MG PO BID, (Reported) Ciprofloxacin HCl 500 Mg Tablet, 500 MG PO BID Prescribed by: UMANG RIOS on 07/04/19 0037 Clindamycin HCl 300 Mg Capsule, 300 MG PO QID Prescribed by: TINO MURPHY on 12/09/19 1425 Nitrofurantoin Monohyd/M-Cryst 100 Mg Capsule, 1 TAB PO BID Prescribed by: JD SNOW on 02/28/17 2309 Omeprazole Magnesium 20 Mg Tablet.dr, 40 MG PO DAILY, (Reported) Ondansetron 4 Mg Tab.rapdis, 4 MG PO Q4H PRN for NAUSEA/VOMITING-1ST LINE, (Reported) Patient Home Medication List Home Medication List Reviewed: Yes Review of Systems Constitutional: No chills, No diaphoresis, No dizziness, No fever EENTM: no symptoms reported Respiratory: no symptoms reported; No dyspnea on exertion, No orthopnea, No short of breath Cardiovascular: no symptoms reported; No chest pain, No edema, No palpitations, No syncope Gastrointestinal: no symptoms reported Genitourinary: no symptoms reported Musculoskeletal: see HPI Skin: no symptoms reported; No rash Psychiatric/Neurological: No Symptoms Reported; Denies Numbness, Denies Pa resthesia, Denies Tingling, Denies Weakness Past Dgpcdxg-Fximap-Rtbdoq Hx Past Med/Social Hx: Reviewed and Corrections made Patient Social History Alcohol Use: Denies Use Number of Drinks Today: AA Alcohol Beverage of Choice: Beer Recreational Drug Use: Yes (METH, COCAINE, OPIATES, BENZO'S, THC-DENIES IV USE) Drug of Choice: recreational opiates, benzos, methamphetamines, THC, COCAINE- DENIES IV USE Smoking Status: Current Everyday Smoker Type Used: Cigarettes 2nd Hand Smoke Exposure: Yes Recent Foreign Travel: No Contact w/Someone Who Travel: No Recent Infectious Disease Expo: No Recent Hopitalizations: No (SHOULDER REPLACEMENT) Physical Abuse: No Sexual Abuse: No Mistreated: No Fear: No Immunizations Up To Date Tetanus Booster (TDap): Less than 5yrs Date of Pneumonia Vaccine: Oct 04, 2010 Seasonal Allergies Seasonal Allergies: Yes Past Medical History Surgeries: Yes (BILAT SHOULDERS, R TKR;, CEA, LIPOMA, LT ANKLE ) Appendectomy, Gallbladder, Hysterectomy, Joint Replacement, Oophorectomy, Orthopedic Respiratory: Yes Asthma, Chronic Bronchitis Cardiac: Yes (SUBCLAVIAN VEIN DVT) Deep Vein Thrombosis, Hypertension Neurological: No 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 History: Hysterectomy, Menopausal Genitourinary: Yes UTI-Chronic Gastrointestinal: Yes Gastroesophageal Reflux, Liver Disease/Jaundice Musculoskeletal: Yes (R TKR;L TORN MENISCUS;BILAT SHOULDERS;L ANKLE;CHR NECK PAIN) Chronic Back Pain, Fractures Endocrine: No HEENT: No Cancer: Yes Bladder, Melanoma Did You Recieve Any Treatments: Yes What Type of Treatment Did You: Surgical Intervention Psychosocial: Yes (POLYSUBSTANCE ABUSE) Anxiety, Depression Integumentary: No Blood Disorders: No (4 DVT'S) Adverse Reaction/Blood Tranf: No Family Medical History No Pertinent Family Hx Physical Exam Vital Signs Capillary Refill : Less Than 3 Seconds Height, Weight, BMI Height: 5'6.00" Weight: 202lbs. 0oz. 91.456345ic; 39.00 BMI Method:Stated General Appearance: no apparent distress, obese, other (SPPPECH VERY RAPID AND SOMEWHAT ERRATIC. PT BELLIGERENT, CURSING AND DEMANDING PAIN MEDICATIONS SOON SHE ARRIVES) Cardiovascular: normal peripheral pulses, regular rate, rhythm, no edema, no JVD, no murmur Respiratory: normal breath sounds, no respiratory distress, no accessory muscle use Hips: bilateral hip non-tender Legs: left leg normal inspection; right leg other (MILD TENDERNESS TO RIGHT ANTERIOR MID THIGH, BUT NO SWELLING, NO MASSES, NO DEFORMITIY, NO EXTERNAL EVIDENCE OF TRAUMA. MOTOR/SENSORY/VASCULAR INTACT. NO CALF TENDERNESS. 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, no motor/sensory deficits, alert, oriented x 3 Skin: normal color, warm/dry; No rash Procedures/Interventions Date of ETT Placement: Nov 20, 2017 Time of ETT Placement: 0732 Suture Size: 5-0 Progress/Results/Core Measures Results/Orders Lab Results Laboratory Tests Test 03/31/20 00:23 Range/Units White Blood Count 10.2 4.3-11.0 10^3/uL Red Blood Count 4.28 L 4.35-5.85 10^6/uL Hemoglobin 13.4 11.5-16.0 G/DL Hematocrit 39 35-52 % Mean Corpuscular Volume 91 80-99 FL Mean Corpuscular Hemoglobin 31 25-34 PG Mean Corpuscular Hemoglobin Concent 34 32-36 G/DL Red Cell Distribution Width 12.5 10.0-14.5 % Platelet Count 285 130-400 10^3/uL Mean Platelet Volume 8.8 7.4-10.4 FL Neutrophils (%) (Auto) 56 42-75 % Lymphocytes (%) (Auto) 34 12-44 % Monocytes (%) (Auto) 7 0-12 % Eosinophils (%) (Auto) 2 0-10 % Basophils (%) (Auto) 0 0-10 % Neutrophils # (Auto) 5.7 1.8-7.8 X 10^3 Lymphocytes # (Auto) 3.5 1.0-4.0 X 10^3 Monocytes # (Auto) 0.7 0.0-1.0 X 10^3 Eosinophils # (Auto) 0.2 0.0-0.3 10^3/uL Basophils # (Auto) 0.0 0.0-0.1 10^3/uL Prothrombin Time 13.4 12.2-14.7 SEC INR Comment 1.0 0.8-1.4 Activated Partial Thromboplast Time 30 24-35 SEC Sodium Level 140 135-145 MMOL/L Potassium Level 3.4 L 3.6-5.0 MMOL/L Chloride Level 110 H 98-107 MMOL/L Carbon Dioxide Level 19 L 21-32 MMOL/L Anion Gap 11 5-14 MMOL/L Blood Urea Nitrogen 13 7-18 MG/DL Creatinine 0.70 0.60-1.30 MG/DL Estimat Glomerular Filtration Rate > 60 BUN/Creatinine Ratio 19 Glucose Level 124 H 70-105 MG/DL Calcium Level 8.7 8.5-10.1 MG/DL My Orders Orders - AMINATA MARIO DO Basic Metabolic Panel (03/31/20 00:26) Cbc With Automated Diff (03/31/20 00:26) Protime With Inr (03/31/20 00:26) Partial Thromboplastin Time (03/31/20 00:26) Vital Signs/I&O Blood Pressure Mean: 101 Progress Progress Note : Progress Note PT INITIALLY REFUSING ALL TESTS EXCEPT "D-DIMER" AND ADAMANTLY REFUSES XRAYS OR CT SCAN, 0030--PT REFUSES TO SIGN AMA OR REFUSAL OF TREATMENT/TESTING PAPERS. PT DOES NOT WANT TO STAY FOR TEST RESULTS. ADVISED PT THAT ULTRASOUND WAS NOT AVAILABLE AT THIS TIME AND THERE WAS NO INDICATION FOR "D-DIMER" TEST OR AN EMERGENT ULTRASOUND AT THIS TIME PT WALKED OUT OF ER ON HER OWN WITHOUT DIFFICULTY, WITH HER DOG Departure Impression Primary Impression: Left against medical advice Disposition: 07 AGAINST MEDICAL ADVICE Condition: Against Medical Advice Departure-Patient Inst. Referrals: NO,LOCAL PHYSICIAN (PCP/Family) Primary Care Physician AMINATA MARIO DO Mar 31, 2020 00:45
[2020-03-31 00:46] LABS: BUN/CREATININE RATIO 19
== END 2020-03-31 00:47 | disposition left against medical advice (07) ==
LOC: EDUNIT# 23:44 → ER 23:45
DX: M79.604 Pain in right leg (principal); I10 Essential (primary) hypertension; K21.9 Gastro-esophageal reflux disease without esophagitis; F41.9 Anxiety disorder, unspecified; F32.9 Major depressive disorder, single episode, unspecified; E66.9 Obesity, unspecified; Z68.39 Body mass index [BMI] 39.0-39.9, adult
CPT/HCPCS: 99283